=== PATIENT | female | born 1965 | race American Indian/Alaskan Native ===

== ENCOUNTER 2016-09-09 21:57 | Emergency (ER) | payer MEDICARE ==
[2016-09-09 21:58] VITALS: BMI 31.6
[2016-09-09 22:19] VITALS: BP 127/71; PULSE 78; RESP 16; TEMP 99.7; O2SAT 97
--- NOTE | 2016-09-09 23:30 | ED PDOC ---
Arrival/HPI - General Chief Complaint: ENT Problem Time Seen by Provider: 09/09/16 23:27 Historian: Patient - History of Present Illness Narrative History of Present Illness (Text): 09/09/16 23:29 51yr old female presents today with 1 day history of FB in right ear. pt states she was using a qtip yesterday and the tip of the qtip got stuck in the ear canal. pt denies pain. no fever/chills. denies hearing changes. no other complaints. Time/Duration: Other (yesterday) Symptom Onset: Sudden Symptom Course: Unchanged Quality: Other (NO PAIN) Past Medical History - Provider Review Nursing Documentation Reviewed: Yes - Travel History Have you recently traveled outside [place] w/in the past 3 mons?: No - Infectious Disease Hx of Infectious Diseases: None - Tetanus Immunization Tetanus Immunization: Unknown - Cardiac Hx Cardiac Disorders: Yes Hx Hypertension: Yes - Pulmonary Hx Respiratory Disorders: No - Neurological Hx Neurological Disorder: No - HEENT Hx HEENT Disorder: No - Renal Hx Renal Disorder: No - Endocrine/Metabolic Hx Endocrine Disorders: Yes Hx Diabetes Mellitus Type 2: Yes - Hematological/Oncological Hx Blood Disorders: Yes Hx Cancer: Yes (Breast) - Integumentary Hx Dermatological Disorder: No - Musculoskeletal/Rheumatological Hx Musculoskeletal Disorders: No Hx Falls: No - Gastrointestinal Hx Gastrointestinal Disorders: Yes Other/Comment: Claims to have"Eating Disorder" where she eats frequently to excess. History of Ventral Hernia - Genitourinary/Gynecological Hx Genitourinary Disorders: Yes Hx Sexually Transmitted Diseases: Yes (Genital Herpes) - Psychiatric Hx Psychophysiologic Disorder: Yes Hx Anxiety: Yes Hx Depression: Yes Hx Post Traumatic Stress Disorder: Yes Hx Substance Use: No - Past Surgical History Past Surgical History: Unable to Obtain - Surgical History Hx Breast Biopsy: Yes (right breast lumpectomy) Other/Comment: Hernia removal - Anesthesia Hx Anesthesia: Yes Hx Anesthesia Reactions: No - Suicidal Assessment Feels Threatened In Home Enviroment: No Family/Social History - Physician Review Nursing Documentation Reviewed: Yes Family/Social History: Unknown Family HX Smoking Status: Never Smoked Hx Alcohol Use: No Hx Substance Use: No Hx Substance Use Treatment: No Allergies/Home Meds Allergies/Adverse Reactions: Allergies benztropine mesylate [From Cogentin] Allergy (Verified 05/18/16 18:12) RASH fluoxetine HCl [From Prozac] Allergy (Verified 05/18/16 18:12) RASH Home Medications: Home Meds Medication Instructions Recorded Confirmed Alprazolam [Xanax] 0.5 mg PO DAILY PRN 07/25/14 04/21/16 Aripiprazole [Abilify] 30 mg PO DAILY 07/25/14 04/21/16 Ascorbic Acid [Vitamin C] 1 tab PO DAILY 07/25/14 04/21/16 Buspirone HCl 15 mg PO BID 07/25/14 04/21/16 Cyanocobalamin [Vitamin B12 100 1 tab PO DAILY 07/25/14 04/21/16 mcg Tab] Diazepam 5 mg PO BID 07/25/14 04/21/16 Ferrous Sulfate 1 tab PO DAILY 07/25/14 04/21/16 Haloperidol [Haldol] 5 mg PO HS 07/25/14 04/21/16 Ibuprofen 800 mg PO BID PRN 07/25/14 04/21/16 Magnesium Oxide 250 mg PO BID 07/25/14 04/21/16 Metformin ER [Glucophage XR] 500 mg PO DAILY 07/25/14 04/21/16 Modafinil 200 mg PO DAILY@0900,1400 07/25/14 04/21/16 [place]-3 Fatty Acids/Fish Oil [Fish 2 cap PO DAILY 07/25/14 04/21/16 Oil 1,000 mg Capsule] PARoxetine CR [Paxil CR] 37.5 mg PO HS 07/25/14 04/21/16 Ramipril 2.5 mg PO DAILY 07/25/14 04/21/16 Simvastatin 10 mg PO DAILY 07/25/14 04/21/16 Tamoxifen Citrate [Nolvadex] 20 mg PO DAILY 07/25/14 04/21/16 Review of Systems - Review of Systems Constitutional: absent: Fatigue, Fevers ENT: Other (FB in right ear). absent: Hearing Changes Respiratory: absent: SOB, Cough Cardiovascular: absent: Chest Pain, Palpitations Gastrointestinal: absent: Abdominal Pain, Nausea, Vomiting Genitourinary Female: absent: Dysuria, Frequency, Hematuria Musculoskeletal: absent: Arthralgias, Back Pain, Neck Pain Skin: absent: Rash, Pruritis Neurological: absent: Headache, Dizziness Psychiatric: absent: Anxiety, Depression Physical Exam Vital Signs Reviewed: Yes Vital Signs Temp Pulse Resp BP Pulse Ox 09/09/16 22:18 99.7 F H 78 16 127/71 97 Temperature: Afebrile Blood Pressure: Normal Pulse: Regular Respiratory Rate: Normal Appearance: Positive for: Well-Appearing, Non-Toxic, Comfortable Pain Distress: None Mental Status: Positive for: Alert and Oriented X 3 - Systems Exam Head: Present: Atraumatic Ears: Present: Other (Right TM; + cotton noted in canal; no mastoid tenderness or erythema). No: Erythema, TM Bulging, TM Perf Mouth: Present: Moist Mucous Membranes Pharnyx: Present: Normal Neck: Present: Normal Range of Motion Respiratory/Chest: Present: Clear to Auscultation, Good Air Exchange. No: Respiratory Distress, Accessory Muscle Use Cardiovascular: Present: Regular Rate and Rhythm, Normal S1, S2. No: Murmurs Neurological: Present: GCS=15 Skin: Present: Warm, Dry, Normal Color. No: Rashes Psychiatric: Present: Alert, Oriented x 3 Medical Decision Making ED Course and Treatment: 09/09/16 23:32 51yr old female with FB in right ear canal. procedure note; RIGHT EAR Using alligator forceps, cotton removed from right ear; no complications; TM wnl ; no erythema; pt tolerated procedure well. no complications. Patient verbalizes understanding of discharge instructions and need for immediate followup. impression; FB in ear canal f/u with pmd f/u with ENT return if symptoms worsen,persist or if new symptoms develop. Disposition/Present on Arrival - Present on Arrival Any Indicators Present on Arrival: No History of DVT/PE: No History of Uncontrolled Diabetes: No Urinary Catheter: No History of Decub. Ulcer: No History Surgical Site Infection Following: None - Disposition Have Diagnosis and Disposition been Completed?: Yes Diagnosis: Foreign body in ear Disposition: HOME/ ROUTINE Disposition Time: 23:28 Patient Plan: Discharge Condition: GOOD Additional Instructions: Follow up with the primary care physician within the next 2 days Return if symptoms worsen,persist or if new symptoms develop. Referrals: Any Damon DO [Primary Care Provider] - Follow up with primary [place] Russo DO [Staff Provider] - Follow up with primary
== END 2016-09-10 00:14 | disposition home or self-care (01) ==
LOC: ED 21:57
DX: T16.1XXA Foreign body in right ear, initial encounter (principal); X58.XXXA Exposure to other specified factors, initial encounter; I10 Essential (primary) hypertension; E11.9 Type 2 diabetes mellitus without complications

== ENCOUNTER 2016-09-11 14:02 | Emergency (ER) | payer MEDICARE ==
[2016-09-11 14:03] VITALS: BMI 31.6
--- NOTE | 2016-09-11 14:12 | ED PDOC ---
Arrival/HPI - General Time Seen by Provider: 09/11/16 14:11 - History of Present Illness Narrative History of Present Illness (Text): 51 y/o F c PMHx anticipatory anxiety, hernia, anemia s/p repair p/w abdominal pain, vomiting, and diarrhea since this morning. She states that she could see a tense, large, bulge in her abdominal wall with these symptoms. She denies fever, chest pain, dyspnea, dysuria, bloody or black stool. Past Medical History - Infectious Disease Hx of Infectious Diseases: None - Tetanus Immunization Tetanus Immunization: Unknown - Cardiac Hx Cardiac Disorders: Yes Hx Hypertension: Yes - Pulmonary Hx Respiratory Disorders: No - Neurological Hx Neurological Disorder: No - HEENT Hx HEENT Disorder: No - Renal Hx Renal Disorder: No - Endocrine/Metabolic Hx Endocrine Disorders: Yes Hx Diabetes Mellitus Type 2: Yes - Hematological/Oncological Hx Blood Disorders: Yes Hx Cancer: Yes (Breast) - Integumentary Hx Dermatological Disorder: No - Musculoskeletal/Rheumatological Hx Musculoskeletal Disorders: No Hx Falls: No - Gastrointestinal Hx Gastrointestinal Disorders: Yes Other/Comment: Claims to have"Eating Disorder" where she eats frequently to excess. History of Ventral Hernia - Genitourinary/Gynecological Hx Genitourinary Disorders: Yes Hx Sexually Transmitted Diseases: Yes (Genital Herpes) - Psychiatric Hx Psychophysiologic Disorder: Yes Hx Anxiety: Yes Hx Depression: Yes Hx Post Traumatic Stress Disorder: Yes Hx Substance Use: No - Past Surgical History Past Surgical History: Unable to Obtain - Surgical History Hx Breast Biopsy: Yes (right breast lumpectomy) Other/Comment: Hernia removal - Anesthesia Hx Anesthesia: Yes Hx Anesthesia Reactions: No - Suicidal Assessment Feels Threatened In Home Enviroment: No Family/Social History Family/Social History: No Known Family HX Smoking Status: Never Smoked Hx Alcohol Use: No Hx Substance Use: No Hx Substance Use Treatment: No Allergies/Home Meds Allergies/Adverse Reactions: Allergies benztropine mesylate [From Cogentin] Allergy (Verified 05/18/16 18:12) RASH fluoxetine HCl [From Prozac] Allergy (Verified 05/18/16 18:12) RASH Home Medications: Home Meds Medication Instructions Recorded Confirmed Alprazolam [Xanax] 0.5 mg PO DAILY PRN 07/25/14 04/21/16 Aripiprazole [Abilify] 30 mg PO DAILY 07/25/14 04/21/16 Ascorbic Acid [Vitamin C] 1 tab PO DAILY 07/25/14 04/21/16 Buspirone HCl 15 mg PO BID 07/25/14 04/21/16 Cyanocobalamin [Vitamin B12 100 1 tab PO DAILY 07/25/14 04/21/16 mcg Tab] Diazepam 5 mg PO BID 07/25/14 04/21/16 Ferrous Sulfate 1 tab PO DAILY 07/25/14 04/21/16 Haloperidol [Haldol] 5 mg PO HS 07/25/14 04/21/16 Ibuprofen 800 mg PO BID PRN 07/25/14 04/21/16 Magnesium Oxide 250 mg PO BID 07/25/14 04/21/16 Metformin ER [Glucophage XR] 500 mg PO DAILY 07/25/14 04/21/16 Modafinil 200 mg PO DAILY@0900,1400 07/25/14 04/21/16 [place]-3 Fatty Acids/Fish Oil [Fish 2 cap PO DAILY 07/25/14 04/21/16 Oil 1,000 mg Capsule] PARoxetine CR [Paxil CR] 37.5 mg PO HS 07/25/14 04/21/16 Ramipril 2.5 mg PO DAILY 07/25/14 04/21/16 Simvastatin 10 mg PO DAILY 07/25/14 04/21/16 Tamoxifen Citrate [Nolvadex] 20 mg PO DAILY 07/25/14 04/21/16 Review of Systems - Physician Review All systems were reviewed & negative as marked: Yes - Review of Systems Constitutional: absent: Fevers Respiratory: absent: SOB Physical Exam - Physical Exam Narrative Physical Exam (Text): Constitutional: Somewhat drowsy. Head: Normocephalic. Atraumatic. Eyes: PERRL. ENT: Moist mucous membranes. Neck: Supple. Cardiovascular: Regular rate. Chest: No tenderness. Respiratory: Clear to auscultation bilaterally. GI: Soft. Nontender. Nondistended. No rebound or guarding. Back: No CVA tenderness. Musculoskeletal: No tenderness or swelling of extremities. Skin: No rash. Neurologic: Alert, no focal deficit. Vital Signs Temp Pulse Resp BP Pulse Ox 09/11/16 15:31 68 18 145/89 100 09/11/16 14:03 97.8 F 70 16 146/97 H 100 Medical Decision Making ED Course and Treatment: Patient treated with IVF, Pepcid, Zofran. At reassessment, the patient is well appearing, awake, alert, and states she feels completely better, has had no vomiting, and her abdomen is now back to normal size without any tenseness. I explained that her lipase is elevated and the concern for pancreatitis. The patient was offered admission, but she wished to go home. She stated that she will return to the ER for any worsening pain or vomiting but otherwise will follow up with her PMD for repeat lipase testing as well as for her Vitamin B12 for her anemia. - Lab Interpretations Lab Results: 09/11/16 14:15 09/11/16 14:15 Lab Results 09/11/16 14:15: Sodium 135, Potassium 3.5 L, Chloride 102, Carbon Dioxide 23, Anion Gap 14, BUN 11, Creatinine 0.6, Est GFR ( Amer) > 60, Est GFR (Non- Af Amer) > 60, Random Glucose 152 H, Calcium 9.0, Total Bilirubin 0.6, AST 62 H , ALT 45, Alkaline Phosphatase 53, Total Protein 8.3, Albumin 4.3, Globulin 4.0 , Albumin/Globulin Ratio 1.1, Lipase 773 H 09/11/16 14:15: Urine Color Yellow, Urine Appearance Clear, Urine pH 6.0, Ur Specific [place] 1.025, Urine Protein Negative, Urine Glucose (UA) Negative, Urine Ketones 15 H, Urine Blood Negative, Urine Nitrate Negative, Urine Bilirubin Negative, Urine Urobilinogen 0.2, Ur Leukocyte Esterase Negative, Urine HCG, Qual Negative 09/11/16 14:15: WBC 6.9, RBC 3.59, Hgb 8.5 L, Hct 28.5 L, MCV 79.4 L, MCH 23.7 L , MCHC 29.8 L, RDW 16.4 H, Plt Count 365, MPV 9.1, Gran % 88.3 H, Lymph % (Auto ) 7.9 L, [place] % (Auto) 3.6, Eos % (Auto) 0.1 L, Baso % (Auto) 0.1, Gran # 6.06, Lymph # 0.5 L, [place] # 0.3, Eos # 0.0, Baso # 0.01 - Medication Orders Current Medication Orders: Discontinued Medications Famotidine (Pepcid) 20 mg IVP STAT STA Stop: 09/11/16 15:14 Last Admin: 09/11/16 15:23 Dose: 20 mg Sodium Chloride (Sodium Chloride 0.9%) 1,000 mls @ 999 mls/hr IV .Q1H1M STA Stop: 09/11/16 16:12 Last Admin: 09/11/16 15:22 Dose: 999 mls/hr Ondansetron HCl (Zofran Inj) 8 mg IVP STAT STA Stop: 09/11/16 15:13 Last Admin: 09/11/16 15:23 Dose: 8 mg Disposition/Present on Arrival - Present on Arrival Any Indicators Present on Arrival: No History of DVT/PE: No History of Uncontrolled Diabetes: No Urinary Catheter: No History Surgical Site Infection Following: None - Disposition Have Diagnosis and Disposition been Completed?: Yes Diagnosis: Abdominal pain Disposition: HOME/ ROUTINE Disposition Time: 16:25 Patient Plan: Discharge Condition: STABLE Discharge Instructions (ExitCare): Abdominal Pain (ED) Prescriptions: Famotidine [Pepcid] 1 tab PO BID #60 tab Referrals: Any Damon DO [Primary Care Provider] - Follow up with primary
[2016-09-11 14:43] VITALS: TEMP 97.8; O2SAT 100
[2016-09-11] MEDS ORDERED: Sodium Chloride 0.9% 1,000 ML IV STA (15:12)
[2016-09-11 15:15] LABS: ADD MANUAL DIFF? NO
[2016-09-11 15:31] VITALS: RESP 18
[2016-09-11 15:33] LABS: ALB/GLOB RATIO 1.1 (1.1-1.8); ALKALINE PHOSPHATASE 53 U/L (38-133); ALT/SGPT 45 U/L (7-56); AST/SGOT 62 U/L (15-39); BASO # 0.01 K/mm3 (0.0-2.0); BASO % 0.1 % (0.0-3.0); BILIRUBIN,TOTAL 0.6 mg/dL (0.2-1.3); BLOOD UREA NITROGEN 11 mg/dL (7-21); CARBON DIOXIDE 23 mmol/L (21-33); CHLORIDE 102 mmol/L (98-107); EOS % 0.1 % (1.5-5.0); GFR AFRICAN-AMERICAN > 60; GLUCOSE,RANDOM 152 mg/dL (70-110); GRAN # 6.06 (1.4-6.5); GRAN % 88.3 % (50.0-68.0); HEMATOCRIT 28.5 % (36.0-48.0); LIPASE 773 U/L (23-300); LYMPH # 0.5 (1.2-3.4); LYMPH % 7.9 % (22.0-35.0); MEAN CELL VOLUME 79.4 fL (80.0-105.0); MEAN CORPUSCULAR HEMOGLOBIN 23.7 pg (25.0-35.0); MEAN CORPUSCULAR HGB CONC 29.8 g/dl (31.0-37.0); MEAN PLATELET VOLUME 9.1 fl (7.0-11.0); MONO # 0.3 (0.1-0.6); MONO % 3.6 % (1.0-6.0); PLATELET COUNT 365 10^3/uL (120.0-450.0); POTASSIUM 3.5 mmol/L (3.6-5.0); RED CELL DISTRIBUTION WIDTH 16.4 % (11.5-14.5); SODIUM 135 mmol/L (132-148); TOTAL PROTEIN 8.3 g/dL (5.8-8.3); URINE BILIRUBIN NEGATIVE (NEGATIVE); URINE BLOOD NEGATIVE (NEGATIVE); URINE GLUCOSE (UA) NEGATIVE (NEGATIVE); URINE KETONE 15 mg/dL (NEGATIVE); URINE LEUKOCYTE ESTERASE NEGATIVE Leu/uL (NEGATIVE); URINE PROTEIN NEGATIVE mg/dL (<30 mg/dL); URINE UROBILINOGEN 0.2 E.U./dL (<1 E.U./dL); WHITE BLOOD COUNT 6.9 10^3/ul (4.5-11.0)
[2016-09-11 15:36] LABS: URINE APPEARANCE CLEAR (CLEAR); URINE COLOR YELLOW (YELLOW)
[2016-09-11 16:49] VITALS: BP 143/79; PULSE 66
== END 2016-09-11 17:20 | disposition home or self-care (01) ==
LOC: ED 14:02
DX: R10.9 Unspecified abdominal pain (principal); E11.9 Type 2 diabetes mellitus without complications; I10 Essential (primary) hypertension
CPT/HCPCS: 80053; 81003; 83690; 84703; 85025; 96361; 96374; 96375; 99284; J2405; J7040

== ENCOUNTER 2016-11-17 10:49 | Emergency (ER) | payer MEDICARE ==
[2016-11-17 11:03] VITALS: RESP 18; TEMP 98; O2SAT 98; BMI 32.9
[2016-11-17] MEDS ORDERED: Sodium Chloride 0.9% 1,000 ML IV STA (11:30)
[2016-11-17] MEDS ORDERED: Lidocaine 2% Viscous 100 ml PO STA (11:32)
[2016-11-17] MEDS ORDERED: Alum-Mag Hydrox-Simethicone Susp (30 mL) PO STA (11:32)
[2016-11-17 12:34] LABS: BASO # 0.01 K/mm3 (0.0-2.0); BASO % 0.2 % (0.0-3.0); EOS % 0.5 % (1.5-5.0); GRAN # 3.45 (1.4-6.5); GRAN % 78.1 % (50.0-68.0); HEMOGLOBIN 8.5 gm/dL (12.0-16.0); LYMPH # 0.7 (1.2-3.4); LYMPH % 14.9 % (22.0-35.0); MEAN CORPUSCULAR HEMOGLOBIN 22.6 pg (25.0-35.0); MEAN CORPUSCULAR HGB CONC 28.6 g/dl (31.0-37.0); MEAN PLATELET VOLUME 8.4 fl (7.0-11.0); MONO # 0.3 (0.1-0.6); MONO % 6.3 % (1.0-6.0); PLATELET COUNT 264 10^3/uL (120.0-450.0); RBC 3.76 10^6/uL (3.5-6.1); RED CELL DISTRIBUTION WIDTH 20.2 % (11.5-14.5); WHITE BLOOD COUNT 4.4 10^3/ul (4.5-11.0)
[2016-11-17 12:36] LABS: ALB/GLOB RATIO 1.1 (1.1-1.8); ALBUMIN 4.1 g/dL (3.0-4.8); ALT/SGPT 24 U/L (7-56); AST/SGOT 42 U/L (15-39); BLOOD UREA NITROGEN 13 mg/dL (7-21); CALCIUM 9.3 mg/dL (8.4-10.5); GFR AFRICAN-AMERICAN > 60; GFR NON-AFRICAN AMERICAN > 60; LIPASE 200 U/L (23-300)
[2016-11-17 13:31] LABS: PH,URINE 6.5 (4.7-8.0); URINE APPEARANCE CLEAR (CLEAR); URINE BILIRUBIN NEGATIVE (NEGATIVE); URINE BLOOD NEGATIVE (NEGATIVE); URINE COLOR YELLOW (YELLOW); URINE GLUCOSE (UA) NEGATIVE (NEGATIVE); URINE LEUKOCYTE ESTERASE NEGATIVE Leu/uL (NEGATIVE); URINE NITRATE NEGATIVE (NEGATIVE); URINE PROTEIN NEGATIVE mg/dL (<30 mg/dL); URINE UROBILINOGEN 0.2 E.U./dL (<1 E.U./dL)
[2016-11-17 13:50] VITALS: BP 135/68; PULSE 75
--- NOTE | 2016-11-17 14:00 | ED PDOC ---
Arrival/HPI - General Chief Complaint: Abdominal Pain Time Seen by Provider: 11/17/16 10:53 Historian: Patient - History of Present Illness Narrative History of Present Illness (Text): 11/17/16 14:02 51 yo F w/ pmh of gastritis, eating disorder, DM, depression, large fibroid uterus, and abdominal hernia, s/p previous hernia repair in the epigastric area , presents with mid abdominal pain and 2 episodes of vomiting after eating an entire apple pie. States that she has a h/o an eating disorder, states when she becomes overly stressed out, she ends up binge eating and it causes her gastritis to act up, normally takes pepcid with improvement, however took a dose superintendent pressure with no improvement, prompting ED visit. Denies any radiation, chest pain, SOB, back pain, diarrhea, urinary symptoms, constipation. Pt has no other complaints. Of note, pt adds that she is currently following up with a GI doctor , who plans to schedule her for an outpt endoscopy and colonoscopy. PMD Nelson Past Medical History - Provider Review Nursing Documentation Reviewed: Yes - Infectious Disease Hx of Infectious Diseases: None - Tetanus Immunization Tetanus Immunization: Unknown - Cardiac Hx Cardiac Disorders: Yes Hx Hypertension: Yes - Pulmonary Hx Respiratory Disorders: No - Neurological Hx Neurological Disorder: No - HEENT Hx HEENT Disorder: No - Renal Hx Renal Disorder: No - Endocrine/Metabolic Hx Endocrine Disorders: Yes Hx Diabetes Mellitus Type 2: Yes - Hematological/Oncological Hx Blood Disorders: Yes Hx Cancer: Yes (Breast R) - Integumentary Hx Dermatological Disorder: No - Musculoskeletal/Rheumatological Hx Musculoskeletal Disorders: No Hx Falls: No - Gastrointestinal Hx Gastrointestinal Disorders: Yes Other/Comment: Claims to have"Eating Disorder" where she eats frequently to excess. History of Ventral Hernia - Genitourinary/Gynecological Hx Genitourinary Disorders: Yes Hx Sexually Transmitted Diseases: Yes (Genital Herpes) - Psychiatric Hx Psychophysiologic Disorder: Yes Hx Anxiety: Yes Hx Depression: Yes Hx Post Traumatic Stress Disorder: Yes Hx Substance Use: No - Past Surgical History Past Surgical History: Unable to Obtain - Surgical History Hx Breast Biopsy: Yes (right breast lumpectomy) - Anesthesia Hx Anesthesia: Yes Hx Anesthesia Reactions: No - Suicidal Assessment Feels Threatened In Home Enviroment: No Family/Social History - Physician Review Nursing Documentation Reviewed: Yes Family/Social History: No Known Family HX Smoking Status: Never Smoked Hx Alcohol Use: No Hx Substance Use: No Hx Substance Use Treatment: No Allergies/Home Meds Allergies/Adverse Reactions: Allergies benztropine mesylate [From Cogentin] Allergy (Verified 11/17/16 10:57) RASH fluoxetine HCl [From Prozac] Allergy (Verified 11/17/16 10:57) RASH omeprazole Allergy (Verified 11/17/16 10:57) RASH Home Medications: Home Meds Medication Instructions Recorded Confirmed Alprazolam [Xanax] 0.5 mg PO DAILY PRN 07/25/14 11/17/16 Aripiprazole [Abilify] 30 mg PO DAILY 07/25/14 11/17/16 Ascorbic Acid [Vitamin C] 1 tab PO DAILY 07/25/14 11/17/16 Buspirone HCl 15 mg PO BID 07/25/14 11/17/16 Cyanocobalamin [Vitamin B12 100 1 tab PO DAILY 07/25/14 11/17/16 mcg Tab] Diazepam 5 mg PO BID 07/25/14 11/17/16 Ferrous Sulfate 1 tab PO DAILY 07/25/14 11/17/16 Haloperidol [Haldol] 5 mg PO HS 07/25/14 11/17/16 Ibuprofen 800 mg PO BID PRN 07/25/14 11/17/16 Magnesium Oxide 250 mg PO BID 07/25/14 11/17/16 Metformin ER [Glucophage XR] 500 mg PO DAILY 07/25/14 11/17/16 Modafinil 200 mg PO DAILY@0900,1400 07/25/14 11/17/16 [place]-3 Fatty Acids/Fish Oil [Fish 2 cap PO DAILY 07/25/14 11/17/16 Oil 1,000 mg Capsule] PARoxetine CR [Paxil CR] 37.5 mg PO HS 07/25/14 11/17/16 Ramipril 2.5 mg PO DAILY 07/25/14 11/17/16 Simvastatin 10 mg PO DAILY 07/25/14 11/17/16 Tamoxifen Citrate [Nolvadex] 20 mg PO DAILY 07/25/14 11/17/16 Review of Systems - Review of Systems Constitutional: Normal. absent: Fatigue, Weight Change, Fevers Respiratory: Normal. absent: SOB, Cough, Sputum Cardiovascular: Normal. absent: Chest Pain, Palpitations, Edema Gastrointestinal: Normal, Abdominal Pain, Other (h/o eating disorder). absent: Stool Changes, Hematochezia Musculoskeletal: Normal. absent: Arthralgias, Back Pain, Neck Pain Skin: Normal. absent: Rash, Pruritis, Skin Lesions Psychiatric: Normal, Depression (h/o depression). absent: Anxiety, Suicidal Ideation Physical Exam Vital Signs Reviewed: Yes Vital Signs Temp Pulse Resp BP Pulse Ox 11/17/16 13:50 75 18 135/68 98 11/17/16 12:15 78 18 138/71 98 11/17/16 11:02 98.0 F 75 18 141/75 98 Temperature: Afebrile Blood Pressure: Normal Pulse: Regular Respiratory Rate: Normal Appearance: Positive for: Well-Appearing, Non-Toxic, Comfortable Pain Distress: None Mental Status: Positive for: Alert and Oriented X 3 - Systems Exam Head: Present: Atraumatic, Normocephalic Pupils: Present: PERRL Extroacular Muscles: Present: EOMI Conjunctiva: Present: Normal. No: Injected, Icteric Mouth: Present: Moist Mucous Membranes Neck: Present: Normal Range of Motion. No: MIDLINE TENDERNESS Respiratory/Chest: Present: Clear to Auscultation, Good Air Exchange. No: Respiratory Distress, Rales, Rhonchi Cardiovascular: Present: Regular Rate and Rhythm, Normal S1, S2. No: Murmurs Abdomen: Present: Normal Bowel Sounds, Hernias (+nonreducible umbilical hernia, not tender to palpation), Mass/Organomegaly ((+) palpable fibroid uterus in the lower abdomen), Scars (vertical scar above the umbilicus from previous hernia repair). No: Tenderness, Distention, Peritoneal Signs, Rebound, Guarding Back: Present: Normal Inspection. No: CVA Tenderness, Midline Tenderness Upper Extremity: Present: Normal Inspection, Normal ROM. No: Edema Lower Extremity: Present: Normal Inspection, Normal ROM. No: Edema, Tenderness Neurological: Present: GCS=15, CN II-XII Intact, Speech Normal Skin: Present: Warm, Dry, Normal Color. No: Rashes Psychiatric: Present: Alert, Oriented x 3, Normal Insight, Normal Concentration Medical Decision Making ED Course and Treatment: 11/17/16 13:54 51 yo F w/ pmh of gastritis, eating disorder, DM, depression and abdominal hernia, presents with mid abdominal pain and 2 episodes of vomiting after eating an entire apple pie. Differential diagnosis : likely dyspepsia, r/o pancreatitis, cholelithiasis. Plan: - Labs - IV fluids - Pepcid / maalox / viscous lidocaine / zofran - Reasses / disposition - UA / urine cx Labs reviewed, pt's hgb is 8.5 / hct 29, pt's last ER visit on 09/11/16, her hgb was 8.5 hct 28.5, otherwise the rest of the labs are wnl. On re-evaluation, pt states that she feels much better, reports no abdominal pain or nausea at this time. On exam, pt is smiling, laying in bed comfortably in no acute distress. Abdomen is soft with no tenderness, no guarding and no rebound, umbilical hernia still present and is not tender to palpation. Pt states that she feels comfortable going home, advised to continue taking her pepcid and to f/u with her pmd and GI doctor in 1-2 days for re-evaluation, also instructed to return to the ER at any time for any new or worsening symptoms. - Lab Interpretations Lab Results: 11/17/16 12:15 11/17/16 12:15 Lab Results 11/17/16 13:00: Urine Color Yellow, Urine Appearance Clear, Urine pH 6.5, Ur Specific [place] 1.020, Urine Protein Negative, Urine Glucose (UA) Negative, Urine Ketones Negative, Urine Blood Negative, Urine Nitrate Negative, Urine Bilirubin Negative, Urine Urobilinogen 0.2, Ur Leukocyte Esterase Negative 11/17/16 12:15: Sodium 141, Potassium 3.6, Chloride 104, Carbon Dioxide 29, Anion Gap 12, BUN 13, Creatinine 0.7, Est GFR ( Amer) > 60, Est GFR (Non- Af Amer) > 60, Random Glucose 91, Calcium 9.3, Total Bilirubin 0.2, AST 42 H, ALT 24, Alkaline Phosphatase 54, Total Protein 7.7, Albumin 4.1, Globulin 3.6, Albumin/Globulin Ratio 1.1, Lipase 200 11/17/16 12:15: WBC 4.4 L D, RBC 3.76, Hgb 8.5 L, Hct 29.7 L, MCV 79.0 L, MCH 22.6 L, MCHC 28.6 L, RDW 20.2 H, Plt Count 264, MPV 8.4, Gran % 78.1 H, Lymph % (Auto) 14.9 L, [place] % (Auto) 6.3 H, Eos % (Auto) 0.5 L, Baso % (Auto) 0.2, Gran # 3.45, Lymph # 0.7 L, [place] # 0.3, Eos # 0.0, Baso # 0.01 - Medication Orders Current Medication Orders: Discontinued Medications Al Hydrox/Mg Hydrox/Simethicone (Maalox Plus 30 Ml) 30 ml PO STAT STA Stop: 11/17/16 11:33 Last Admin: 11/17/16 12:19 Dose: 30 ml Famotidine (Pepcid) 20 mg IVP STAT STA Stop: 11/17/16 11:35 Last Admin: 11/17/16 12:17 Dose: 20 mg Sodium Chloride (Sodium Chloride 0.9%) 1,000 mls @ 1,000 mls/hr IV .Q1H STA Stop: 11/17/16 12:29 Last Admin: 11/17/16 12:18 Dose: 1,000 mls/hr Lidocaine (Lidocaine 2% Viscous) 15 ml PO STAT STA Stop: 11/17/16 11:33 Last Admin: 11/17/16 12:25 Dose: 15 ml Ondansetron HCl (Zofran Inj) 4 mg IVP STAT STA Stop: 11/17/16 11:33 Last Admin: 11/17/16 12:15 Dose: 4 mg - PA / HAZ TECH / Resident Statement / has reviewed & agrees with the documentation as recorded. Disposition/Present on Arrival - Present on Arrival Any Indicators Present on Arrival: No History of DVT/PE: No History of Uncontrolled Diabetes: No Urinary Catheter: No History of Decub. Ulcer: No History Surgical Site Infection Following: None - Disposition Have Diagnosis and Disposition been Completed?: Yes Diagnosis: Abdominal pain, Dyspepsia Disposition: HOME/ ROUTINE Disposition Time: 13:30 Patient Plan: Discharge Patient Problems: Current Active Problems Problem Status Onset Abdominal pain Acute Dyspepsia Acute Condition: IMPROVED Discharge Instructions (ExitCare): Chronic Indigestion (ED) Print Language: KINYARWANDA Additional Instructions: Follow up with referral physician provided in 1-2 days without fail. Continue current medication. Return to the ER at any time for any new or worsening symptoms. Referrals: PCP,NO [Primary Care Provider] - Follow up with primary Nelson,Shy, DO [Staff Provider] - Follow up with primary
== END 2016-11-17 14:15 | disposition home or self-care (01) ==
LOC: ED 10:49
DX: R10.13 Epigastric pain (principal); I10 Essential (primary) hypertension; E11.9 Type 2 diabetes mellitus without complications
CPT/HCPCS: 80053; 81003; 83690; 85025; 87086; 96361; 96374; 96375; 99283; J2405; J7040

== ENCOUNTER 2016-12-24 19:22 | Observation (INO) | payer MEDICARE ==
--- NOTE | 2016-12-24 20:09 | ED PDOC ---
Arrival/HPI - General Historian: Patient - History of Present Illness Symptom Onset: Sudden Symptom Course: Unchanged Activities at Onset: Rest Context: Home <Diana Solares - Last Filed: 12/25/16 03:04> <Patrick Ryan - Last Filed: 12/25/16 06:39> - General Chief Complaint: Medical Clearance Time Seen by Provider: 12/24/16 19:31 - History of Present Illness Narrative History of Present Illness (Text): 12/24/16 20:24 A 51 year old female, with a psychiatric history, presents to the emergency department because of anxiety and depression. Patient reports she woke up this morning feeling anxious and began to feel depressed. She also notes an upset stomach and decided to call some of her friends in mental health field. She then states she saw her psychiatrist who adjusted her medications but pharmacy stated there was something wrong with the way medications were written. Patient reports to the emergency department for depression and anxiety. Denies any abdominal pain, nausea, vomiting, chest pain, fever, shortness of breath, chills , suicidal ideation, homicidal ideation, dysuria, hematuria or any other complaints at this time. Patient is ambulatory with steady gait. (Diana Solares) Past Medical History - Provider Review Nursing Documentation Reviewed: Yes - Infectious Disease Hx of Infectious Diseases: None - Tetanus Immunization Tetanus Immunization: Unknown - Cardiac Hx Cardiac Disorders: Yes Hx Hypertension: Yes - Pulmonary Hx Respiratory Disorders: No - Neurological Hx Neurological Disorder: No - HEENT Hx HEENT Disorder: No - Renal Hx Renal Disorder: No - Endocrine/Metabolic Hx Endocrine Disorders: Yes Hx Diabetes Mellitus Type 2: Yes - Hematological/Oncological Hx Blood Disorders: Yes Hx Cancer: Yes (Breast R) - Integumentary Hx Dermatological Disorder: No - Musculoskeletal/Rheumatological Hx Musculoskeletal Disorders: No Hx Falls: No - Gastrointestinal Hx Gastrointestinal Disorders: Yes Other/Comment: Claims to have"Eating Disorder" where she eats frequently to excess. History of Ventral Hernia - Genitourinary/Gynecological Hx Genitourinary Disorders: Yes Hx Sexually Transmitted Diseases: Yes (Genital Herpes) - Psychiatric Hx Psychophysiologic Disorder: Yes Hx Anxiety: Yes Hx Depression: Yes Hx Post Traumatic Stress Disorder: Yes Hx Substance Use: No - Past Surgical History Past Surgical History: Unable to Obtain - Surgical History Hx Breast Biopsy: Yes (right breast lumpectomy) - Anesthesia Hx Anesthesia: Yes Hx Anesthesia Reactions: No - Suicidal Assessment Feels Threatened In Home Enviroment: No <Diana Solares - Last Filed: 12/25/16 03:04> Family/Social History - Physician Review Nursing Documentation Reviewed: Yes Family/Social History: No Known Family HX Smoking Status: Never Smoked Hx Alcohol Use: No Hx Substance Use: No Hx Substance Use Treatment: No <Diana Solares - Last Filed: 12/25/16 03:04> Allergies/Home Meds <Diana Solares - Last Filed: 12/25/16 03:04> <Patrick Ryan - Last Filed: 12/25/16 06:39> Allergies/Adverse Reactions: Allergies benztropine mesylate [From Cogentin] Allergy (Verified 11/17/16 10:57) RASH fluoxetine HCl [From Prozac] Allergy (Verified 11/17/16 10:57) RASH omeprazole Allergy (Verified 11/17/16 10:57) RASH Home Medications: Home Meds Medication Instructions Recorded Confirmed Alprazolam [Xanax] 0.5 mg PO DAILY PRN 07/25/14 12/24/16 Aripiprazole [Abilify] 30 mg PO DAILY 07/25/14 12/24/16 Ascorbic Acid [Vitamin C] 1 tab PO DAILY 07/25/14 12/24/16 Buspirone HCl 15 mg PO BID 07/25/14 12/24/16 Cyanocobalamin [Vitamin B12 100 1 tab PO DAILY 07/25/14 12/24/16 mcg Tab] Diazepam 5 mg PO BID 07/25/14 12/24/16 Ferrous Sulfate 1 tab PO DAILY 07/25/14 12/24/16 Haloperidol [Haldol] 5 mg PO HS 07/25/14 12/24/16 Ibuprofen 800 mg PO BID PRN 07/25/14 12/24/16 Magnesium Oxide 250 mg PO BID 07/25/14 12/24/16 Metformin ER [Glucophage XR] 500 mg PO DAILY 07/25/14 12/24/16 Modafinil 200 mg PO DAILY@0900,1400 07/25/14 12/24/16 [place]-3 Fatty Acids/Fish Oil [Fish 2 cap PO DAILY 07/25/14 12/24/16 Oil 1,000 mg Capsule] PARoxetine CR [Paxil CR] 37.5 mg PO HS 07/25/14 12/24/16 Ramipril 2.5 mg PO DAILY 07/25/14 12/24/16 Simvastatin 10 mg PO DAILY 07/25/14 12/24/16 Tamoxifen Citrate [Nolvadex] 20 mg PO DAILY 07/25/14 12/24/16 Review of Systems - Physician Review All systems were reviewed & negative as marked: Yes - Review of Systems Constitutional: absent: Fevers, Other (chills) Respiratory: absent: SOB Cardiovascular: absent: Chest Pain Gastrointestinal: absent: Abdominal Pain, Nausea, Vomiting Genitourinary Female: absent: Dysuria, Frequency, Hematuria Psychiatric: Anxiety, Depression. absent: Suicidal Ideation, Other (homicidal ideation) <Diana Solares Last Filed: 12/25/16 03:04> Physical Exam Vital Signs Reviewed: Yes Temperature: Afebrile Blood Pressure: Hypertensive Pulse: Regular Respiratory Rate: Normal Appearance: Positive for: Well-Appearing, Non-Toxic, Comfortable Pain Distress: None Mental Status: Positive for: Alert and Oriented X 3 - Systems Exam Head: Present: Atraumatic, Normocephalic Pupils: Present: PERRL Extroacular Muscles: Present: EOMI Conjunctiva: Present: Normal Mouth: Present: Moist Mucous Membranes Respiratory/Chest: Present: Clear to Auscultation, Good Air Exchange. No: Respiratory Distress, Accessory Muscle Use Cardiovascular: Present: Regular Rate and Rhythm, Normal S1, S2. No: Murmurs Abdomen: Present: Normal Bowel Sounds, Hernias (umbilical hernia, nontender). No: Tenderness, Distention, Peritoneal Signs, Rebound, Guarding, McBurney's Point Tender Back: Present: Normal Inspection. No: CVA Tenderness, Midline Tenderness, Paraspinal Tenderness Upper Extremity: Present: Normal Inspection. No: Cyanosis, Edema Lower Extremity: Present: Normal Inspection. No: Edema Neurological: Present: GCS=15, Speech Normal Skin: Present: Warm, Dry, Normal Color. No: Rashes Psychiatric: Present: Alert, Oriented x 3 <Diana Solares Filed: 12/25/16 03:04> Medical Decision Making - Lab Interpretations I have reviewed the lab results: Yes - EKG Interpretation Interpreted by ED Physician: Yes Type: 12 lead EKG <Diana Solares Filed: 12/25/16 03:04> <Patrick Ryan - Last Filed: 12/25/16 06:39> ED Course and Treatment: 12/24/16 22:52 Patient is nontoxic well-appearing in no distress vital signs are stable. CBC WNL CMP WNL Tylenol WNL Salicylate WNL Alcohol level WNL Urine drug screen wnl UA; wnl cxr: wnl ekg normal sinus rhythm no ST elevations normal intervals pt is medically cleared for PES evaluation Patient was seen and evaluated by PES screener: grant pt cleared psychiatrically for discharge. Patient now complaining of abdominal pain. Minimal abdominal tenderness will do dry CAT scan of the abdomen and pelvis. Impression; abdominal pain, depression, anxiety Follow up with the primary care physician within the next 2 days. Follow up with the GI doctor within the next 2 days increase fluids Followup with [facility] Return immediately if symptoms worsen,persist or if new symptoms develop. 12/25/16 01:44 12/25/2016 02:54 Abd/Pelvis CT FINDINGS: There is perihepatic fluid similar to the prior study The gallbladder, liver, spleen, kidneys and pancreas appear grossly normal on this non-contrast study. Surgical sutures are present in bowel in the right upper quadrant. Again seen is a hernia through the anterior abdominal wall at midline containing multiple dilated fluidfilled small bowel loops. These loops measure up to 4 cm in diameter. The small bowel external to the hernia is normal in caliber. There is stranding in the mesentery adjacent to the hernia and in the hernia. On images 75 through 85 there is slight swirling of the mesentery. Findings supportive of strangulated/incarcerated ventral hernia with resultant closed loop small bowel obstruction, similar to prior although more severe. Stool is present throughout the colon. The uterus is massively enlarged with innumerable calcifications similar to prior. Depending upon the patient's symptomatology, further evaluation with MRI may be helpful to evaluate for the possibility of therapeutic embolization. Small free fluid is present in the pelvis. IMPRESSION: Dilated fluid-filled small bowel loops contained within a ventral hernia w stranding in the mesentery. Findings supportive of incarcerated hernia with closed loop obstruction. Dictated and Authenticated by: Shweta Perez MD (Diana Solares) - Lab Interpretations Lab Results: 12/24/16 20:15 12/24/16 20:15 Lab Results 12/24/16 21:19: Urine Opiates Screen Negative, Urine Methadone Screen Negative, Ur Barbiturates Screen Negative, Ur Phencyclidine Scrn Negative, Ur Amphetamines Screen Negative, U Benzodiazepines Scrn Positive H, U Oth Cocaine Metabols Negative, U Cannabinoids Screen Negative 12/24/16 21:19: Urine Color Yellow, Urine Appearance Clear, Urine pH 7.0, Ur Specific [place] 1.020, Urine Protein Negative, Urine Glucose (UA) Negative, Urine Ketones >=80, Urine Blood Negative, Urine Nitrate Negative, Urine Bilirubin Negative, Urine Urobilinogen 0.2, Ur Leukocyte Esterase Negative 12/24/16 20:15: WBC 6.1 D, RBC 4.20, Hgb 9.9 L, Hct 32.9 L, MCV 78.3 L, MCH 23.6 L, MCHC 30.1 L, RDW 19.0 H, Plt Count 274, MPV 8.7, Gran % 76.4 H, Lymph % (Auto) 15.8 L, [place] % (Auto) 6.4 H, Eos % (Auto) 1.2 L, Baso % (Auto) 0.2, Gran # 4.65, Lymph # 1.0 L, [place] # 0.4, Eos # 0.1, Baso # 0.01 12/24/16 20:15: Alcohol, Quantitative < 10 12/24/16 20:15: Salicylates < 1 L, Acetaminophen < 10.0 L 12/24/16 20:15: Sodium 138, Potassium 4.0, Chloride 104, Carbon Dioxide 26, Anion Gap 12, BUN 7, Creatinine 0.6, Est GFR ( Amer) > 60, Est GFR (Non- Af Amer) > 60, Random Glucose 85, Calcium 8.8, Total Bilirubin 0.2, AST 49 H, ALT 32, Alkaline Phosphatase 52, Total Protein 7.0, Albumin 3.8, Globulin 3.2, Albumin/Globulin Ratio 1.2, Lipase 94 - RAD Interpretation Radiology Orders: 12/24/16 20:06 CHEST PORTABLE [RAD] Stat 12/25/16 01:40 ABD & PELVIS W/O PO OR IV CONT [CT] Stat - Medication Orders Current Medication Orders: Acetaminophen (Tylenol 325mg Tab) 650 mg PO Q4H PRN PRN Reason: Pain, Mild (1-3) Sodium Chloride (Sodium Chloride 0.9%) 1,000 mls @ 100 mls/hr IV .Q10H STA Stop: 12/25/16 13:54 Ondansetron HCl (Zofran Inj) 4 mg IVP Q4H PRN PRN Reason: Nausea/Vomiting Discontinued Medications Sodium Chloride (Sodium Chloride 0.9%) 1,000 mls @ 999 mls/hr IV .Q1H1M STA Stop: 12/24/16 23:59 Last Admin: 12/24/16 23:34 Dose: 999 mls/hr - Scribe Statement The provider has reviewed the documentation as recorded by the Scribe <Diana Solares - Last Filed: 12/25/16 03:04> - PA / [employer] / Resident Statement / has reviewed & agrees with the documentation as recorded. <Patrick Ryan - Last Filed: 12/25/16 06:39> - Scribe Statement Eduardo Garcia Provider Scribe Attestation: All medical record entries made by the Scribe were at my direction and personally dictated by me. I have reviewed the chart and agree that the record accurately reflects my personal performance of the history, physical exam, medical decision making, and the department course for this patient. I have also personally directed, reviewed, and agree with the discharge instructions and disposition. (Diana Solares) Disposition/Present on Arrival - Present on Arrival Any Indicators Present on Arrival: No History of DVT/PE: No History of Uncontrolled Diabetes: No Urinary Catheter: No History of Decub. Ulcer: No History Surgical Site Infection Following: None - Disposition Have Diagnosis and Disposition been Completed?: Yes <Diana Solares - Last Filed: 12/25/16 03:04> - Present on Arrival Any Indicators Present on Arrival: No - Disposition Have Diagnosis and Disposition been Completed?: Yes Disposition Time: 03:00 <Patrick Ryan - Last Filed: 12/25/16 06:39> - Disposition Diagnosis: Anxiety, Depression, Abdominal pain, Small bowel obstruction Disposition: HOSPITALIZED Patient Problems: Current Active Problems Problem Status Onset Abdominal pain Acute Anxiety Acute Depression Acute Small bowel obstruction Acute Condition: FAIR
[2016-12-24 20:25] LABS: BASO # 0.01 K/mm3 (0.0-2.0); BASO % 0.2 % (0.0-3.0); EOS # 0.1 (0.0-0.7); EOS % 1.2 % (1.5-5.0); GRAN # 4.65 (1.4-6.5); GRAN % 76.4 % (50.0-68.0); HEMATOCRIT 32.9 % (36.0-48.0); LYMPH % 15.8 % (22.0-35.0); MEAN CELL VOLUME 78.3 fl (80.0-105.0); MEAN CORPUSCULAR HEMOGLOBIN 23.6 pg (25.0-35.0); MEAN CORPUSCULAR HGB CONC 30.1 g/dl (31.0-37.0); MEAN PLATELET VOLUME 8.7 fl (7.0-11.0); MONO # 0.4 (0.1-0.6); MONO % 6.4 % (1.0-6.0); WHITE BLOOD COUNT 6.1 10^3/ul (4.5-11.0)
[2016-12-24 21:51] LABS: URINE BILIRUBIN NEGATIVE (NEGATIVE); URINE BLOOD NEGATIVE (NEGATIVE); URINE GLUCOSE (UA) NEGATIVE (NEGATIVE); URINE KETONE >=80 mg/dL (NEGATIVE); URINE LEUKOCYTE ESTERASE NEGATIVE Leu/uL (NEGATIVE); URINE PROTEIN NEGATIVE mg/dL (<30 mg/dL); URINE UROBILINOGEN 0.2 E.U./dL (<1 E.U./dL)
[2016-12-24 21:52] LABS: URINE APPEARANCE CLEAR (CLEAR); URINE COLOR YELLOW (YELLOW)
[2016-12-24] MEDS ORDERED: Sodium Chloride 0.9% 1,000 ML IV STA (22:59)
[2016-12-24 23:37] LABS: ALB/GLOB RATIO 1.2 (1.1-1.8); ALKALINE PHOSPHATASE 52 U/L (38-133); ALT/SGPT 32 U/L (7-56); AST/SGOT 49 U/L (15-39); BILIRUBIN,TOTAL 0.2 mg/dL (0.2-1.3); BLOOD UREA NITROGEN 7 mg/dL (7-21); CALCIUM 8.8 mg/dL (8.4-10.5); CARBON DIOXIDE 26 mmol/L (21-33); CHLORIDE 104 mmol/L (98-107); GFR AFRICAN-AMERICAN > 60; GLUCOSE,RANDOM 85 mg/dL (70-110); LIPASE 94 U/L (23-300); SODIUM 138 mmol/L (132-148)
--- NOTE | 2016-12-25 02:54 | CT ---
EXAM: CT Abdomen and Pelvis Without Intravenous Contrast EXAM DATE/TIME: 12/25/2016 1:40 AM CLINICAL HISTORY: 51 years old, female; Pain; Abdominal pain TECHNIQUE: Axial computed tomography images of the abdomen and pelvis without intravenous contrast. All CT scans at this facility use one or more dose reduction techniques, viz.: automated exposure control; ma/kV adjustment per patient size (including targeted exams where dose is matched to indication; i.e. head); or iterative reconstruction technique. Coronal and sagittal reformatted images were created and reviewed. COMPARISON: CT - ABD PELVIS W/O PO OR IV CONT 04/21/2016 4:39:23 AM FINDINGS: There is perihepatic fluid similar to the prior study The gallbladder, liver, spleen, kidneys and pancreas appear grossly normal on this non-contrast study. Surgical sutures are present in bowel in the right upper quadrant. Again seen is a hernia through the anterior abdominal wall at midline containing multiple dilated fluid-filled small bowel loops. These loops measure up to 4 cm in diameter. The small bowel external to the hernia is normal in caliber. There is stranding in the mesentery adjacent to the hernia and in the hernia. On images 75 through 85 there is slight swirling of the mesentery. Findings supportive of strangulated/incarcerated ventral hernia with resultant closed loop small bowel obstruction, similar to prior although more severe. Stool is present throughout the colon. The uterus is massively enlarged with innumerable calcifications similar to prior. Depending upon the patient's symptomatology, further evaluation with MRI may be helpful to evaluate for the possibility of therapeutic embolization. Small free fluid is present in the pelvis. IMPRESSION: Dilated fluid-filled small bowel loops contained within a ventral hernia w stranding in the mesentery. Findings supportive of incarcerated hernia with closed loop obstruction.
[2016-12-25] MEDS ORDERED: Sodium Chloride 0.9% 1,000 ML IV STA (03:55)
--- NOTE | 2016-12-25 04:19 | CP.PCM.CON ---
History of Present Illness - History of Present Illness History of Present Illness: General surgery consult note for Dr. Jeffrey Thomas, PGY-1 Pt S & E at bedside. 51F w/PMH sig for hernia s/p hernia repair, fibroids, breast CA s/p lumpectomy ( 2010), DM, depression, anxiety consulted for CT finding of incarcerated hernia with closed loop obstruction. Pt reports having hernia s/p hernia repair in 2013. Hernia is generally asymptomatic. On day prior to admission, pt admits to fatigue, depression, weakness- went to psychiatrist with resulting medication regimen change. After seeing psychiatrist, pt had 1 episode of nbnb emesis (food stuff only from several hrs prior), nausea, some abdominal discomfort. Usually has daily BMs while on Denies constipation, diarrhea PMH: hernia s/p hernia repair, fibroids, breast CA s/p lumpectomy (2010), DM, depression, anxiety, Right foot paresthesias PSH: Hernia repair (2013) All: Benztropine, mesylate, fluoxetine, omeprazole SH: Denies ETOH, Tobacco or illicit drug use- takes prescription medications Past Patient History - Infectious Disease Hx of Infectious Diseases: None - Tetanus Immunizations Tetanus Immunization: Unknown - Past Medical History & Family History Past Medical History?: Yes - Past Social History Smoking Status: Never Smoked - CARDIAC Hx Cardiac Disorders: Yes Hx Hypertension: Yes - PULMONARY Hx Respiratory Disorders: No - NEUROLOGICAL Hx Neurological Disorder: No - HEENT Hx HEENT Problems: No - RENAL Hx Chronic Kidney Disease: No - ENDOCRINE/METABOLIC Hx Endocrine Disorders: Yes Hx Diabetes Mellitus Type 2: Yes - HEMATOLOGICAL/ONCOLOGICAL Hx Blood Disorders: Yes Hx Cancer: Yes (Breast R) - INTEGUMENTARY Hx Dermatological Problems: No - MUSCULOSKELETAL/RHEUMATOLOGICAL Hx Musculoskeletal Disorders: No Hx Falls: No - GASTROINTESTINAL Hx Gastrointestinal Disorders: Yes Other/Comment: Claims to have"Eating Disorder" where she eats frequently to excess. History of Ventral Hernia - GENITOURINARY/GYNECOLOGICAL Hx Genitourinary Disorders: Yes Hx Sexually Transmitted Disorders: Yes (Genital Herpes) - PSYCHIATRIC Hx Psychophysiologic Disorder: Yes Hx Anxiety: Yes Hx Depression: Yes Hx Post Traumatic Stress Disorder: Yes Hx Substance Use: No - SURGICAL HISTORY Hx Breast Biopsy: Yes (right breast lumpectomy) - ANESTHESIA Hx Anesthesia: Yes Hx Anesthesia Reactions: No Meds Allergies/Adverse Reactions: Allergies Allergy/AdvReac Type Severity Reaction Status Date / Time benztropine mesylate Allergy RASH Verified 11/17/16 10:57 [From Cogentin] fluoxetine HCl [From Prozac] Allergy RASH Verified 11/17/16 10:57 omeprazole Allergy RASH Verified 11/17/16 10:57 - Medications Medications: Current Medications Acetaminophen (Tylenol 325mg Tab) 650 mg PO Q4H PRN PRN Reason: Pain, Mild (1-3) Sodium Chloride (Sodium Chloride 0.9%) 1,000 mls @ 100 mls/hr IV .Q10H STA Stop: 12/25/16 13:54 Ondansetron HCl (Zofran Inj) 4 mg IVP Q4H PRN PRN Reason: Nausea/Vomiting Physical Exam - Constitutional Appears: Non-toxic, No Acute Distress - Head Exam Head Exam: ATRAUMATIC, NORMAL INSPECTION, NORMOCEPHALIC - Eye Exam Eye Exam: EOMI, Normal appearance - ENT Exam ENT Exam: Mucous Membranes Moist, Normal Exam - Neck Exam Neck exam: Positive for: Full Rom, Normal Inspection - Respiratory Exam Respiratory Exam: Clear to Auscultation Bilateral, NORMAL BREATHING PATTERN. absent: Rales, Rhonchi, Wheezes, Respiratory Distress - Cardiovascular Exam Cardiovascular Exam: REGULAR RHYTHM, +S1, +S2 - GI/Abdominal Exam GI & Abdominal Exam: Distended, Hernia (umbilical), Hypoactive Bowel Sounds, Soft, Tenderness (minimally). absent: Firm, Guarding, Rebound, Rigid - Rectal Exam Rectal Exam: Deferred - Extremities Exam Extremities exam: Positive for: normal inspection. Negative for: pedal edema - Back Exam Back exam: NORMAL INSPECTION. absent: CVA tenderness (L), CVA tenderness (R) - Neurological Exam Neurological exam: Alert, CN II-XII Intact, Oriented x3 - Psychiatric Exam Psychiatric exam: Normal Affect, Normal Mood - Skin Skin Exam: Dry, Intact, Normal Color, Warm Results - Vital Signs Recent Vital Signs: Last Vital Signs Temp 99.0 F 12/24/16 23:48 Pulse 80 12/24/16 23:48 Resp 17 12/24/16 23:48 BP 136/90 12/24/16 23:48 Pulse Ox 98 12/24/16 23:48 - Labs Result Diagrams: 12/25/16 09:30 12/25/16 09:30 Assessment & Plan - Assessment and Plan (Free Text) Assessment: 51F w/psych hx, umbilical hernia s/p hernia repair, fibroids, breast CA s/p lumpectomy (2010), DM, depression, anxiety consulted for CT finding of incarcerated hernia with closed loop obstruction, pt currently without symptoms , hernia reducible but recurrent Plan: CT ab w/Dilated fluid-filled small bowel loops contained within a ventral hernia w/stranding in the mesentery. Findings supportive of incarcerated hernia with closed loop obstruction. Serial ab exams Will Consider NGT placement if pt becomes distended pain mgmt IVF Will DW attending Martha, PGY-1 - Date & Time Date: 12/25/16 Time: 03:30
[2016-12-25 07:51] VITALS: RESP 18; BMI 32.3
--- NOTE | 2016-12-25 09:51 | RAD ---
HISTORY: pes eval COMPARISON: Comparison made with chest radiograph 05/07/2016. The study was also read in conjunction with CT scan abdomen and pelvis 12/25/2016 at 0145 hours. FINDINGS: LUNGS: Poor inspiration with low lung volumes, crowded bronchovascular markings and mild bibasilar atelectasis. PLEURA: No significant pleural effusion identified, no pneumothorax apparent. CARDIOVASCULAR: Normal. OSSEOUS STRUCTURES: No significant abnormalities. VISUALIZED UPPER ABDOMEN: Normal. OTHER FINDINGS: None. IMPRESSION: Poor inspiration with low lung volumes, crowded bronchovascular markings and mild bibasilar atelectasis.
[2016-12-25 09:52] LABS: BASO # 0.01 K/mm3 (0.0-2.0); BASO % 0.3 % (0.0-3.0); EOS # 0.1 (0.0-0.7); EOS % 2.9 % (1.5-5.0); GRAN # 2.38 (1.4-6.5); GRAN % 62.1 % (50.0-68.0); HEMATOCRIT 29.3 % (36.0-48.0); LYMPH % 26.6 % (22.0-35.0); MEAN CELL VOLUME 78.8 fl (80.0-105.0); MEAN CORPUSCULAR HEMOGLOBIN 23.7 pg (25.0-35.0); MEAN PLATELET VOLUME 8.4 fl (7.0-11.0); MONO # 0.3 (0.1-0.6); MONO % 8.1 % (1.0-6.0); RED CELL DISTRIBUTION WIDTH 19.2 % (11.5-14.5); WHITE BLOOD COUNT 3.8 10^3/ul (4.5-11.0)
[2016-12-25 10:06] LABS: ALB/GLOB RATIO 1.1 (1.1-1.8); ALKALINE PHOSPHATASE 42 U/L (38-133); ALT/SGPT 30 U/L (7-56); AST/SGOT 37 U/L (15-39); BILIRUBIN,TOTAL 0.2 mg/dL (0.2-1.3); BLOOD UREA NITROGEN 8 mg/dL (7-21); CALCIUM 7.8 mg/dL (8.4-10.5); CARBON DIOXIDE 24 mmol/L (21-33); CHLORIDE 109 mmol/L (98-107); GFR AFRICAN-AMERICAN > 60; GLUCOSE,RANDOM 67 mg/dL (70-110); POTASSIUM 3.4 mmol/L (3.6-5.0); SODIUM 139 mmol/L (132-148); TOTAL PROTEIN 5.9 g/dL (5.8-8.3)
[2016-12-25] MEDS ORDERED: Potassium Chloride 20 mEq/15 ml LIQ UD PO STA (10:13)
[2016-12-25] MEDS: Dextrose 5%/0.45% NS 1,000 ML IV SCH ×2 (10:33→21:45)
[2016-12-25] MEDS: Insulin Reg-LOW-Coverage SC SCH ×3 (11:28→21:43)
[2016-12-25] MEDS ORDERED: PAROXETINE 37.5 MG PO SCH (22:00)
--- NOTE | 2016-12-26 01:34 | CARD ---
APPROVED REPORT EKG Measurement Heart [id number] <Conclusion> Normal sinus rhythm Moderate voltage criteria for LVH, may be normal variant Nonspecific T wave abnormality Abnormal ECG
[2016-12-26] MEDS: Dextrose 5%/0.45% NS 1,000 ML IV SCH (05:50)
[2016-12-26 06:24] VITALS: BP 117/73; TEMP 98.3; O2SAT 97
[2016-12-26 08:22] VITALS: PULSE 59
[2016-12-26] MEDS: Insulin Reg-LOW-Coverage SC SCH ×2 (09:24→12:17)
[2016-12-26] MEDS ORDERED: Omega-3-Acid Ethyl Esters 1 GM Cap PO SCH (10:00)
--- NOTE | 2016-12-26 11:47 | CP.PCM.PN ---
Subjective - Date & Time of Evaluation Date of Evaluation: 12/26/16 Time of Evaluation: 11:43 - Subjective Subjective: Surgery: Dr. Murphy Patient feeling well today. Denies pain, n/v. reports large bowel movement last night. Is requesting to go home. She states she is seeing a POWER CUTTING MACHINE OPERATOR doctor Rafa as outpatient who has a plan for hysterectomy and hernia repair in the near future. Objective - Vital Signs/Intake and Output Vital Signs (last 24 hours): Temp Pulse Resp BP Pulse Ox 98.3 F 59 L 18 117/73 97 12/26/16 08:22 12/26/16 08:22 12/26/16 08:22 12/26/16 10:23 12/26/16 08:22 Intake and Output: 12/26/16 12/26/16 06:59 18:59 Intake Total 1200 Balance 1200 - Medications Medications: Current Medications Acetaminophen (Tylenol 325mg Tab) 650 mg PO Q4H PRN PRN Reason: Pain, Mild (1-3) Alprazolam (Xanax) 0.5 mg PO Q6H PRN PRN Reason: Anxiety Last Admin: 12/25/16 21:49 Dose: 0.5 mg Aripiprazole (Abilify) 30 mg PO DAILY [facility] Last Admin: 12/26/16 09:18 Dose: 30 mg Atorvastatin Calcium (Lipitor) 10 mg PO DIN [facility] Last Admin: 12/25/16 17:54 Dose: 10 mg Buspirone HCl (Buspar) 15 mg PO BID [facility] Last Admin: 12/26/16 09:18 Dose: 15 mg Diazepam (Valium) 5 mg PO BID [facility] Last Admin: 12/26/16 09:19 Dose: 5 mg Famotidine (Pepcid) 20 mg PO BID [facility] Last Admin: 12/26/16 09:19 Dose: 20 mg Dextrose/Sodium Chloride (Dextrose 5%/0.45% Ns 1000 Ml) 1,000 mls @ 100 mls/hr IV .Q10H [facility] Last Admin: 12/26/16 05:50 Dose: 100 mls/hr Insulin Human Regular (Humulin R Low) 0 units SC ACHS [facility] PRN Reason: Protocol Last Admin: 12/26/16 09:24 Dose: Not Given Metformin HCl (Glucophage Xr) 500 mg PO DAILY [facility] Last Admin: 12/26/16 09:24 Dose: Not Given Paroxetine Cr [Paxil Cr] 37.5 Mg (Home Med) 37.5 mg PO HS [facility] Last Admin: 12/25/16 21:59 Dose: Not Given Qmqgh-3-Qdxh Ethyl Esters (Lovaza) 2 gm PO DAILY [facility] Last Admin: 12/26/16 09:18 Dose: 2 gm Ondansetron HCl (Zofran Inj) 4 mg IVP Q4H PRN PRN Reason: Nausea/Vomiting Ramipril (Altace) 2.5 mg PO DAILY [facility] Last Admin: 12/26/16 10:23 Dose: 2.5 mg Tamoxifen Citrate (Nolvadex) 20 mg PO DAILY [facility] Last Admin: 12/26/16 10:23 Dose: 20 mg - Labs Labs: 12/25/16 09:30 12/25/16 09:30 - Constitutional Appears: Non-toxic, No Acute Distress - Head Exam Head Exam: ATRAUMATIC, NORMOCEPHALIC - Eye Exam Eye Exam: Normal appearance - ENT Exam ENT Exam: Mucous Membranes Moist - Respiratory Exam Respiratory Exam: NORMAL BREATHING PATTERN. absent: Respiratory Distress - Cardiovascular Exam Cardiovascular Exam: REGULAR RHYTHM. absent: Tachycardia - GI/Abdominal Exam GI & Abdominal Exam: Soft, Hernia (reducible, large, incisional ). absent: Distended, Tenderness Additional comments: large fibroid uterus measuring 20+ week , - Extremities Exam Extremities Exam: absent: Calf Tenderness - Neurological Exam Neurological Exam: Alert, Awake - Psychiatric Exam Psychiatric exam: Normal Affect - Skin Skin Exam: Dry, Normal Color, Warm Assessment and Plan - Assessment and Plan (Free Text) Assessment: 51 y/o female w/ large incisional/ventral wall hernia which is easily reducible as well at 20+ week measuring uterus 2/2 large fibroids Plan: -patient needs to have fibroid uterus surgically removed before or at the same time of hernia repar -patient already has plans with POWER CUTTING MACHINE OPERATOR surgery regarding this management -should f/u as outpatient with POWER CUTTING MACHINE OPERATOR surgeon -patient not clinically obstructed from hernia -cleared for discharge home w/ outpatient f/u from surgical standpoint -d/w Dr. Jeffrey Zarate PGY3
--- NOTE | 2016-12-27 09:25 | PN ---
DATE: 12/26/2016 Aliya Meza is seen again. She was seen yesterday and today. I reviewed the notes. I personally examined the patient myself. The patient has a mostly reducible ventral hernia that was done at the same time as repair of small bowel. It was done as a primary closure and quickly recurred. There is a massive uterus behind it that need surgical intervention. The [employer] is in process of working this up I believe, but asked for colonoscopy and upper endoscopy. At this time, the patient is completely asymptomatic. Abdomen is soft and nontender. She is eating, passing gas and having flatus and bowel movements. Referred to my office. I will be happy to see her as necessary, but the real treatment would be to have a hysterectomy and probably herniorrhaphy at the same time. Carl Murphy MD
--- NOTE | 2017-01-05 20:17 | DS ---
DATE OF DISCHARGE: 12/26/2016 DISCHARGE DIAGNOSES: 1. Incarcerated ventral hernia. 2. History of breast cancer, right sided. 3. Leukopenia. 4. Anemia. 5. Diabetes mellitus type 2. 6. Hypertension. HOSPITAL COURSE: The patient was admitted with abdominal pain. CAT scan of the abdomen showed incarcerated ventral hernia, it was reducible. She was kept n.p.o. and surgery evaluated; Dr. Murphy from surgery evaluated. Abdominal pain subsided. She was able to tolerate oral liquids. She was advised to follow up with Dr. Murphy for elective hernia repair. She is in stable condition. PHYSICAL EXAMINATION ON DISCHARGE: GENERAL: Comfortable in bed, in no acute distress. VITAL SIGNS: Temperature 98.7, heart rate 90 per minute, blood pressure 130/70, respiratory rate 18 per minute. HEENT: Pallor positive. NECK: Supple. CHEST: Air entry present, equal bilaterally. No added sounds. CARDIOVASCULAR EXAM: S1 and S2 normal. No murmur. No gallop. ABDOMEN: Soft, nontender. No hepatosplenomegaly. Central midline hernia present, reducible. EXTREMITIES: No edema. CENTRAL NERVOUS SYSTEM: Alert and oriented x3. SPINE: Nontender. CONDITION ON DISCHARGE: Stable. DISPOSITION: Discharge home. FOLLOWUP: Followup with Dr. Murphy in 1 week. Follow up with PMD in 1 week. DISCHARGE MEDICATIONS: Continue home medications. Xanax 0.5 mg p.r.n., Abilify 30 mg daily, Lipitor 10 daily, BuSpar 15 mg p.o. b.i.d., Valium 5 mg b.i.d., Pepcid 20 mg daily, Haldol 5 mg at bedtime, metformin 500 mg daily, paroxetine 37.5 mg daily, ramipril 0.25 mg daily, tamoxifen 20 mg daily. DIET: Regular. Time spent in preparing discharge and coordinating care 60 minutes. Magaly Vieira MD
--- NOTE | 2017-01-05 21:57 | HP ---
DATE OF EVALUATION: 12/25/2016 HISTORY OF PRESENT ILLNESS: Ms. Meza is a 51-year-old female with a history of breast cancer, admitted with abdominal pain. She has ventral hernia, complaining of pain around the hernia. CAT scan of the abdomen showed incarcerated bowel loop in the ventral hernia. Denies any nausea, vomiting. No fever, no cough or expectoration. She has diabetes mellitus type 2, controlled on current medications. She also has hypertension, controlled on current medications. She has chronic anemia. PAST MEDICAL HISTORY: Diabetes mellitus type 2, hypertension, right-sided breast cancer status post lumpectomy, anxiety, and depression. PAST SURGICAL HISTORY: Right-sided lumpectomy. FAMILY HISTORY: Noncontributory. No positive history in mother and father. PERSONAL HISTORY: Nonsmoking. No history of alcohol abuse. SOCIAL HISTORY: Lives at home. ALLERGIES: COGENTIN, PROZAC, AND OMEPRAZOLE. HOME MEDICATIONS: Xanax 0.5 mg daily, Abilify 30 mg daily, ascorbic acid 1 mg daily, diazepam 5 mg p.o. b.i.d., ferrous sulfate one tablet daily, ibuprofen 800 mg p.o. b.i.d., metformin 500 mg daily, magnesium 250 mg p.o. b.i.d., Ramipril 2.5 mg daily, simvastatin 10 mg daily, tamoxifen 20 mg daily, Paxil 37.5 mg p.o. daily. REVIEW OF SYSTEMS: As per HPI. Rest of 12-point review of systems reviewed, negative. PHYSICAL EXAMINATION: GENERAL: Comfortable in bed, in no acute distress. VITAL SIGNS: Temperature 98.7, heart rate 80 per minute, respiratory rate 16 per minute, oxygen saturation 98% room air. HEENT: Normal. Pallor positive. CHEST: Air entry present and equal bilateral. No added sound. CARDIOVASCULAR: Within normal limits. ABDOMEN: Soft and nontender. No hepatosplenomegaly. Ventral hernia present, nontender, reducible. EXTREMITIES: No edema. SKIN: Normal color. LABORATORY DATA: White count is 6.1, hemoglobin 9.9, hematocrit 32.9, platelet count 274. Sodium 138, potassium 4, BUN 7, creatinine 0.6, glucose 85. CT abdomen, as per HPI. ASSESSMENT AND PLAN: 1. Ventral hernia with incarcerated bowel loop. 2. History of breast cancer, right-sided lumpectomy. 3. Chronic anemia. 4. Leukopenia. 5. Diabetes mellitus type 2. 6. Hypertension. PLAN: She will be admitted to the hospital. CAT scan of the abdomen reviewed. Surgery consultation with Dr. Murphy requested. She will be n.p.o. IV fluids normal saline at 80 mL an hour. Continue home medications. BuSpar 15 mg p.o. b.i.d., Valium 5 mg p.o. b.i.d., Pepcid 20 mg b.i.d., Abilify 30 mg daily, Xanax 0.5 mg p.o. q.6 hours p.r.n., Tylenol 650 q. 4 hours p.r.n. for pain, insulin coverage, hold metformin, Zofran 4 mg IV q. 6 hours p.r.n., tamoxifen 20 mg daily. We will continue to follow closely. Labs are repeated tomorrow morning. Magaly Vieira MD
== END 2016-12-26 12:49 | disposition home or self-care (01) ==
LOC: ED 19:22 → ERH 12-25 03:12 → 3RSO 12-25 04:57
PROVIDERS: ADMIT Internal Medicine; ATTEND Internal Medicine
DX: K43.9 Ventral hernia without obstruction or gangrene (principal); D25.9 Leiomyoma of uterus, unspecified; F32.9 Major depressive disorder, single episode, unspecified; E11.9 Type 2 diabetes mellitus without complications; I10 Essential (primary) hypertension; Z85.3 Personal history of malignant neoplasm of breast
CPT/HCPCS: 36415; 71010; 74176; 80053; 81003; 82948; 83690; 85025; 90791; 93005; 99284; G0378; G0480; J7040; J7042

== ENCOUNTER 2017-02-26 16:51 | Emergency (ER) | payer MEDICARE ==
[2017-02-26 17:02] VITALS: BMI 30.7
[2017-02-26 17:08] VITALS: BP 149/86; PULSE 93; RESP 18; TEMP 99.3; O2SAT 100
--- NOTE | 2017-02-26 17:17 | ED PDOC ---
Arrival/HPI - General Chief Complaint: Foreign Body Time Seen by Provider: 02/26/17 16:53 Historian: Patient - History of Present Illness Narrative History of Present Illness (Text): 02/26/17 17:14 CC: Q Tip in ear Patient is complaining that she lost a piece of q tip in her ear; states she has been buying those "cheap q tips from the dollar store" and needs to stop buying cheap q tips. States it isn't even bothering her but she just noticed it was lodged in there when the q tip didn't have the cotton on it anymore. She denies any other symptoms; denies fevers/chills, HUSAIN, CP, SOB, abdominal pain, N/ V/D, dysuria/freq/urg, or lower extremity pain/swelling. States she has psych issues but they're under control with her psychiatrist; denies hearing voices/ suicidal/homicidal ideation Past Medical History - Provider Review Nursing Documentation Reviewed: Yes - Travel History Have you recently traveled outside [place] w/in the past 3 mons?: No - Past History Past History: No Previous - Infectious Disease Hx of Infectious Diseases: None - Tetanus Immunization Tetanus Immunization: Unknown - Cardiac Hx Cardiac Disorders: Yes Hx Hypertension: Yes - Pulmonary Hx Respiratory Disorders: No - Neurological Hx Neurological Disorder: No - HEENT Hx HEENT Disorder: No - Renal Hx Renal Disorder: No - Endocrine/Metabolic Hx Endocrine Disorders: Yes Hx Diabetes Mellitus Type 2: Yes - Hematological/Oncological Hx Blood Disorders: Yes Hx Cancer: Yes (Breast R) - Integumentary Hx Dermatological Disorder: No - Musculoskeletal/Rheumatological Hx Musculoskeletal Disorders: No Hx Falls: No - Gastrointestinal Hx Gastrointestinal Disorders: Yes Other/Comment: Claims to have"Eating Disorder" where she eats frequently to excess. History of Ventral Hernia - Genitourinary/Gynecological Hx Genitourinary Disorders: Yes Hx Sexually Transmitted Diseases: Yes (Genital Herpes) - Psychiatric Hx Psychophysiologic Disorder: Yes Hx Anxiety: Yes Hx Depression: Yes Hx Post Traumatic Stress Disorder: Yes Hx Substance Use: No - Past Surgical History Past Surgical History: Unable to Obtain - Surgical History Hx Breast Biopsy: Yes (right breast lumpectomy) - Anesthesia Hx Anesthesia: Yes Hx Anesthesia Reactions: No - Suicidal Assessment Feels Threatened In Home Enviroment: No Family/Social History - Physician Review Nursing Documentation Reviewed: Yes Family/Social History: No Known Family HX Smoking Status: Never Smoked Hx Alcohol Use: No Hx Substance Use: No Hx Substance Use Treatment: No Allergies/Home Meds Allergies/Adverse Reactions: Allergies benztropine mesylate [From Cogentin] Allergy (Verified 02/26/17 17:03) RASH fluoxetine HCl [From Prozac] Allergy (Verified 02/26/17 17:03) RASH omeprazole Allergy (Verified 02/26/17 17:03) RASH Home Medications: Home Meds Medication Instructions Recorded Confirmed Alprazolam [Xanax] 0.5 mg PO DAILY PRN 07/25/14 12/24/16 Aripiprazole [Abilify] 30 mg PO DAILY 07/25/14 12/24/16 Ascorbic Acid [Vitamin C] 1 tab PO DAILY 07/25/14 12/24/16 Buspirone HCl 15 mg PO BID 07/25/14 12/24/16 Cyanocobalamin [Vitamin B12 100 1 tab PO DAILY 07/25/14 12/24/16 mcg Tab] Diazepam 5 mg PO BID 07/25/14 12/24/16 Ferrous Sulfate 1 tab PO DAILY 07/25/14 12/24/16 Haloperidol [Haldol] 5 mg PO HS 07/25/14 12/24/16 Ibuprofen 800 mg PO BID PRN 07/25/14 12/24/16 Magnesium Oxide 250 mg PO BID 07/25/14 12/24/16 Metformin ER [Glucophage XR] 500 mg PO DAILY 07/25/14 12/24/16 Modafinil 200 mg PO DAILY@0900,1400 07/25/14 12/24/16 [place]-3 Fatty Acids/Fish Oil [Fish 2 cap PO DAILY 07/25/14 12/24/16 Oil 1,000 mg Capsule] PARoxetine CR [Paxil CR] 37.5 mg PO HS 07/25/14 12/24/16 Ramipril 2.5 mg PO DAILY 07/25/14 12/24/16 Simvastatin 10 mg PO DAILY 07/25/14 12/24/16 Tamoxifen Citrate [Nolvadex] 20 mg PO DAILY 07/25/14 12/24/16 Review of Systems - Review of Systems Constitutional: absent: Fatigue, Weight Change Eyes: absent: Vision Changes, Photophobia ENT: absent: Hearing Changes, Tinnitus, TMJ Pain Respiratory: absent: SOB, Cough Cardiovascular: absent: Chest Pain, Palpitations Gastrointestinal: absent: Abdominal Pain Genitourinary Female: absent: Dysuria, Frequency, Hematuria Musculoskeletal: absent: Arthralgias Skin: absent: Rash, Pruritis, Skin Lesions Neurological: absent: Headache, Dizziness, Focal Weakness Endocrine: absent: Diaphoresis, Polyuria Hemo/Lymphatic: absent: Adenopathy, Easy Bleeding Psychiatric: absent: Anxiety, Depression Physical Exam Vital Signs Temp Pulse Resp BP Pulse Ox 02/26/17 17:08 99.3 F 93 H 18 149/86 100 Temperature: Afebrile Blood Pressure: Normal Pulse: Regular Respiratory Rate: Normal Appearance: Positive for: Well-Appearing, Non-Toxic, Comfortable Pain Distress: None Mental Status: Positive for: Alert and Oriented X 3 - Systems Exam Head: Present: Atraumatic, Normocephalic Pupils: Present: PERRL Extroacular Muscles: Present: EOMI Conjunctiva: Present: Normal Ears: Present: Other (large cotton ball in right ear; removed with alligator forceps, small amount of wax appreciaetd in both ears, no sign of infection, no pain when pulling on tragus, no pain when putting otoscope inside of ear) Mouth: Present: Moist Mucous Membranes Neck: Present: Normal Range of Motion Respiratory/Chest: Present: Clear to Auscultation, Good Air Exchange. No: Respiratory Distress, Accessory Muscle Use Cardiovascular: Present: Regular Rate and Rhythm, Normal S1, S2. No: Murmurs Abdomen: Present: Normal Bowel Sounds. No: Tenderness, Distention Back: Present: Normal Inspection. No: CVA Tenderness Upper Extremity: Present: Normal Inspection. No: Cyanosis, Edema Lower Extremity: Present: Normal Inspection. No: Edema, CALF TENDERNESS Neurological: Present: GCS=15, CN II-XII Intact, Speech Normal Skin: Present: Warm. No: Dry Psychiatric: Present: Alert, Oriented x 3. No: Normal Mood Medical Decision Making ED Course and Treatment: 02/26/17 17:17 Pt with foreign body in ear; cotton of q tip was removed with alligator forceps patient tolerated procedure well patient advised to not use q tips in the future patient agreed to this treatment plan the patient is stable for d/c as per Dr. Nelson The patient will follow up with ENT for further ear cleanings Disposition/Present on Arrival - Present on Arrival Any Indicators Present on Arrival: Yes History of DVT/PE: No History of Uncontrolled Diabetes: No Urinary Catheter: No History of Decub. Ulcer: No History Surgical Site Infection Following: None - Disposition Have Diagnosis and Disposition been Completed?: Yes Diagnosis: Foreign body in ear Disposition: HOME/ ROUTINE Disposition Time: 17:18 Patient Plan: Discharge Condition: FAIR Discharge Instructions (ExitCare): Ear Foreign Body (ED) Referrals: Servando Huerta DO [[facility]] - Follow up with primary Forms: [employer] (Yi)
== END 2017-02-26 17:30 | disposition home or self-care (01) ==
LOC: ED 16:51
DX: T16.1XXA Foreign body in right ear, initial encounter (principal); X58.XXXA Exposure to other specified factors, initial encounter; E11.9 Type 2 diabetes mellitus without complications; I10 Essential (primary) hypertension

== ENCOUNTER 2017-07-26 18:15 | Observation (INO) | payer MEDICARE, OTHER ==
[2017-07-26 18:31] VITALS: BMI 33.3
[2017-07-26] MEDS ORDERED: Sodium Chloride 0.9% 1,000 ML IV SCH (19:45)
[2017-07-26 20:30] LABS: BASO # 0.01 K/mm3 (0.0-2.0); BASO % 0.1 % (0.0-3.0); EOS % 0.4 % (1.5-5.0); GRAN # 5.66 (1.4-6.5); GRAN % 74.9 % (50.0-68.0); HEMOGLOBIN 10.3 g/dL (12.0-16.0); LYMPH # 1.5 (1.2-3.4); LYMPH % 19.2 % (22.0-35.0); MEAN CELL VOLUME 77.8 fl (80.0-105.0); MEAN CORPUSCULAR HEMOGLOBIN 23.4 pg (25.0-35.0); MEAN PLATELET VOLUME 8.6 fl (7.0-11.0); MONO # 0.4 (0.1-0.6); MONO % 5.4 % (1.0-6.0); RBC 4.41 10^6/uL (3.5-6.1); RED CELL DISTRIBUTION WIDTH 18.7 % (11.5-14.5); WHITE BLOOD COUNT 7.6 10^3/ul (4.5-11.0)
[2017-07-26 20:34] LABS: INR 0.99 (0.93-1.08); PARTIAL THROMBOPLASTIN TIME 23.7 Seconds (25.1-36.5); PROTHROMBIN TIME 11.3 SECONDS (9.4-12.5)
[2017-07-26 20:43] LABS: ALB/GLOB RATIO 1.1 (1.1-1.8); ALBUMIN 4.2 g/dL (3.0-4.8); ALT/SGPT 34 U/L (7-56); AMYLASE 182 U/L (35-125); AST/SGOT 59 U/L (14-36); BLOOD UREA NITROGEN 9 mg/dL (7-21); CALCIUM 9.9 mg/dL (8.4-10.5); GFR AFRICAN-AMERICAN > 60; GFR NON-AFRICAN AMERICAN > 60; LIPASE 133 U/L (23-300)
[2017-07-26 20:54] LABS: TROPONIN I < 0.01 ng/mL
[2017-07-26 21:02] LABS: CK-MB 2.1 ng/mL (0.0-3.6)
--- NOTE | 2017-07-26 21:15 | ED PDOC ---
Arrival/HPI - General Chief Complaint: Abdominal Pain Time Seen by Provider: 07/26/17 19:06 Historian: Patient - History of Present Illness Narrative History of Present Illness (Text): 07/26/17 19:30 Aliya Meza is a 52 year old female, whose past medical history includes ventral hernia, diabetes, hypertension, right-sided breast cancer s/p lumpectomy , anxiety, and depression, who presents to the emergency department complaining of abdominal pain. Patient reports associated nausea and vomiting. Patient denies any fever, chills, chest pain, shortness of breath, diarrhea, urinary symptoms, back pain, neck pain, headache, dizziness, or any other complaints. Time/Duration: < week Symptom Onset: Gradual Symptom Course: Unchanged Activities at Onset: Light Context: Home Past Medical History - Provider Review Nursing Documentation Reviewed: Yes - Past History Past History: No Previous - Infectious Disease Hx of Infectious Diseases: None - Tetanus Immunization Tetanus Immunization: Unknown - Cardiac Hx Cardiac Disorders: Yes Hx Hypertension: Yes - Pulmonary Hx Respiratory Disorders: No - Neurological Hx Neurological Disorder: No - HEENT Hx HEENT Disorder: No - Renal Hx Renal Disorder: No - Endocrine/Metabolic Hx Endocrine Disorders: Yes Hx Diabetes Mellitus Type 2: Yes - Hematological/Oncological Hx Blood Disorders: Yes Hx Cancer: Yes (Breast R) - Integumentary Hx Dermatological Disorder: No - Musculoskeletal/Rheumatological Hx Musculoskeletal Disorders: No Hx Falls: No - Gastrointestinal Hx Gastrointestinal Disorders: Yes Other/Comment: Claims to have"Eating Disorder" where she eats frequently to excess. History of Ventral Hernia - Genitourinary/Gynecological Hx Genitourinary Disorders: Yes Hx Sexually Transmitted Diseases: Yes (Genital Herpes) - Psychiatric Hx Psychophysiologic Disorder: Yes Hx Anxiety: Yes Hx Depression: Yes Hx Post Traumatic Stress Disorder: Yes Hx Substance Use: No - Past Surgical History Past Surgical History: Unable to Obtain - Surgical History Hx Breast Biopsy: Yes (right breast lumpectomy) - Anesthesia Hx Anesthesia: Yes Hx Anesthesia Reactions: No - Suicidal Assessment Feels Threatened In Home Enviroment: No Family/Social History - Physician Review Nursing Documentation Reviewed: Yes Family/Social History: Unknown Family HX Smoking Status: Never Smoked Hx Alcohol Use: No Hx Substance Use: No Hx Substance Use Treatment: No Allergies/Home Meds Allergies/Adverse Reactions: Allergies benztropine mesylate [From Cogentin] Allergy (Verified 07/26/17 19:08) RASH fluoxetine HCl [From Prozac] Allergy (Verified 07/26/17 19:08) RASH omeprazole Allergy (Verified 07/26/17 19:08) RASH Home Medications: Home Meds Medication Instructions Recorded Confirmed Unobtainable 07/27/17 07/27/17 Review of Systems - Physician Review All systems were reviewed & negative as marked: Yes - Review of Systems Constitutional: Normal. absent: Fevers Eyes: Normal ENT: Normal Respiratory: Normal. absent: SOB, Cough Cardiovascular: Normal. absent: Chest Pain Gastrointestinal: Abdominal Pain, Nausea, Vomiting. absent: Diarrhea Genitourinary Female: Normal. absent: Dysuria, Frequency, Hematuria, Urine Output Changes Musculoskeletal: Normal. absent: Back Pain, Neck Pain Skin: Normal. absent: Rash Neurological: Normal. absent: Headache, Dizziness Endocrine: Normal Hemo/Lymphatic: Normal Psychiatric: Normal Physical Exam Vital Signs Reviewed: Yes Vital Signs Temp Pulse Resp BP Pulse Ox 07/27/17 03:41 98.0 F 84 18 147/94 H 98 07/26/17 18:30 98.6 F 82 18 158/92 H 100 Temperature: Afebrile Blood Pressure: Normal Pulse: Regular Respiratory Rate: Normal Appearance: Positive for: Well-Appearing, Non-Toxic, Comfortable Pain Distress: None Mental Status: Positive for: Alert and Oriented X 3 - Systems Exam Head: Present: Atraumatic, Normocephalic Pupils: Present: PERRL Extroacular Muscles: Present: EOMI Conjunctiva: Present: Normal Mouth: Present: Moist Mucous Membranes Neck: Present: Normal Range of Motion Respiratory/Chest: Present: Clear to Auscultation, Good Air Exchange. No: Respiratory Distress, Accessory Muscle Use Cardiovascular: Present: Regular Rate and Rhythm, Normal S1, S2. No: Murmurs Abdomen: Present: Normal Bowel Sounds, Hernias (Ventral hernia). No: Tenderness , Distention, Peritoneal Signs Back: Present: Normal Inspection Upper Extremity: Present: Normal Inspection. No: Cyanosis, Edema Lower Extremity: Present: Normal Inspection. No: Edema Neurological: Present: GCS=15, CN II-XII Intact, Speech Normal Skin: Present: Warm, Dry, Normal Color. No: Rashes Psychiatric: Present: Alert, Oriented x 3, Normal Insight, Normal Concentration Medical Decision Making ED Course and Treatment: 07/26/17 19:30 Impression: 52 year old female complaining of abdominal pain, nausea, and vomiting for the past couple of days. Plan: -- CT Abdomen and Pelvis with IV contrast -- EKG -- Labs, cardiac enzymes, lipase, amylase, blood cultures -- UA -- IV fluids -- Zofran -- Reassess and disposition Prior Visits: Notes and results from previous visits were reviewed. On 12/24/2016, pt presented for anxiety and abdominal pain. Pt was admitted to the hospital for further evaluation. Progress Notes: 07/26/17 23:03 Reviewed EKG, NSR at [address] bpm[address] Non-specific ST/T wave changes. 07/27/17 00:53 CT Abdomen and Pelvis shows: Lower thorax: Patchy nonspecific groundglass density is identified within the lung bases bilaterally. ABDOMEN: Liver: There is a band of hypodensity within the anterior liver, which is likely artifactual. Otherwise, there is no visualized hepatic mass. Gallbladder and bile ducts: No calcified stones. No ductal dilation. Pancreas: Normal contour, without acute peripancreatic stranding. Spleen: No splenomegaly. Adrenals: No mass. Kidneys and ureters: No hydronephrosis. No solid mass. Stomach and bowel: There is a large anterior abdominal hernia containing multiple bowel loops. Some bowel loops are distended measuring up to 4.5 cm in diameter. There is stranding of the herniated fat. These findings are suggestive of a strangulated/incarcerated ventral hernia, with closed loop obstruction. There is new wall thickening of small bowel loops within the left side of the mesentery, suggestive of enteritis. There is a new sac-like area of small bowel loops in the left side the abdomen, and an internal hernia cannot be excluded. Moderate fecal material is identified within the colon. Appendix: The appendix is not visualized. PELVIS: Bladder: No mass. Reproductive: There is marked enlargement of the uterus, with uterine fibroids. Some of these masses are calcified. One of the larger masses is seen on the right side measuring 12.9 x 12.0 x 9.5 cm. ABDOMEN and PELVIS: Intraperitoneal space: There is mild abdominal and pelvic ascites. Bones/joints: Hypertrophic degenerative changes are noted within the spine. Soft tissues: See above. Vasculature: No abdominal aortic aneurysm. Lymph nodes: Scattered small retroperitoneal and intrapelvic lymph nodes are identified, without significant lymphadenopathy. Other findings: There is stranding of the abdominal mesentery, most significant anteriorly and on the left side. IMPRESSION: 1. There is a large anterior abdominal hernia containing multiple bowel loops. Some bowel loops are distended measuring up to 4.5 cm in diameter. There is stranding of the herniated fat. These findings are suggestive of a strangulated/incarcerated ventral hernia, with closed loop obstruction. 2. There is stranding of the abdominal mesentery, most significant anteriorly and on the left side. 3. There is new wall thickening of small bowel loops within the left side of the mesentery, suggestive of enteritis. 4. There is a new sac-like area of small bowel loops in the left side the abdomen, and an internal hernia cannot be excluded. 5. There is mild abdominal and pelvic ascites. 6. There is marked enlargement of the uterus, with uterine fibroids. 7. Additional CT findings described above. 8. Surgical consultation is recommended. 07/27/17 01:03 Case discussed with cardiovascular surgical tech division superintendent, who is aware and agrees to evaluate pt. 07/27/17 01:[address] Quintana, who is aware and agrees with plan. Accepts pt in to her service. Pt will go to [facility] observation for incarcerated hernia. - Lab Interpretations Microbiology Results: Microbiology Results 07/26/17 20:11 Blood-Venous Blood Culture - Preliminary NO GROWTH AFTER 24 HOURS Lab Results: 07/26/17 20:11 07/26/17 20:11 Lab Results 07/26/17 20:11: Sodium 137, Potassium 3.5 L, Chloride 104, Carbon Dioxide 23, Anion Gap 14, BUN 9, Creatinine 0.6 L, Est GFR ( Amer) > 60, Est GFR (Non -Af Amer) > 60, Random Glucose 156 H, Calcium 9.9, Total Bilirubin 0.3, AST 59 H , ALT 34, Alkaline Phosphatase 67, Lactate Dehydrogenase 696, Total Creatine Kinase 239 H, CK-MB (CK-2) 2.1, CK-MB (CK-2) % Cancelled, Troponin I < 0.01, Total Protein 7.9, Albumin 4.2, Globulin 3.7, Albumin/Globulin Ratio 1.1, Amylase 182 H, Lipase 133 07/26/17 20:11: PT 11.3, INR 0.99, APTT 23.7 L 07/26/17 20:11: WBC 7.6 D, RBC 4.41, Hgb 10.3 L, Hct 34.3 L, MCV 77.8 L, MCH 23.4 L, MCHC 30.0 L, RDW 18.7 H, Plt Count 337, MPV 8.6, Gran % 74.9 H, Lymph % (Auto) 19.2 L, Calloway % (Auto) 5.4, Eos % (Auto) 0.4 L, Baso % (Auto) 0.1, Gran # 5.66, Lymph # (Auto) 1.5, C[place]ay # (Auto) 0.4, Eos # (Auto) 0.0, Baso # (Auto) 0.01 I have reviewed the lab results: Yes - RAD Interpretation Radiology Orders: 07/26/17 20:44 ABD & PELVIS IV CONTRAST ONLY [CT] [employer] Specialist: Radiologist - EKG Interpretation Interpreted by ED Physician: Yes Type: 12 lead EKG - Medication Orders Current Medication Orders: Alprazolam (Xanax) 0.25 mg PO BID PRN; Protocol PRN Reason: Anxiety Stop: 08/04/17 10:01 Ondansetron HCl (Zofran Inj) 4 mg IVP Q6H PRN PRN Reason: Nausea/Vomiting Pantoprazole Sodium (Protonix Inj) 40 mg IVP DAILY VIPUL Discontinued Medications Sodium Chloride (Sodium Chloride 0.9%) 1,000 mls @ 80 mls/hr IV .[id number] VIPUL Last Admin: 07/26/17 20:22 Dose: 80 mls/hr eMAR Start Stop Document 07/26/17 20:22 SS (Rec: 07/26/17 20:22 SS [id number]) Intravenous Solution Start Date 07/26/17 Start Time 20:22 Sodium Chloride (Sodium Chloride 0.9%) 1,000 mls @ 100 mls/hr IV .Q10H STA Stop: 07/27/17 11:56 Last Admin: 07/27/17 04:34 Dose: 100 mls/hr eMAR Start Stop Document 07/27/17 04:34 PCO (Rec: 07/27/17 04:35 PCO [id number]) Intravenous Solution Start Date 07/27/17 Start Time 04:35 End Date 07/27/17 End time 14:30 Total Infusion Time 595 Potassium Chloride (Potassium Chloride 20 Meq/100 Ml) 20 meq in 100 mls @ 50 mls/hr IVPB ONCE ONE Stop: 07/27/17 11:34 Last Admin: 07/27/17 09:57 Dose: 50 mls/hr eMAR Start Stop Document 07/27/17 09:57 SD (Rec: 07/27/17 09:58 SD [id number]) Intravenous Solution Start Date 07/27/17 Start Time 09:58 End Date 07/27/17 End time 11:58 Total Infusion Time 120 Ondansetron HCl (Zofran Inj) 4 mg IVP STAT STA Stop: 07/26/17 19:35 Last Admin: 07/26/17 20:22 Dose: 4 mg IVP Administration Document 07/26/17 20:22 SS (Rec: 07/26/17 20:22 SS [id number]) Charges for Administration # of IVP Administrations 1 - Scribe Statement The provider has reviewed the documentation as recorded by the Scribamanda Rivera All medical record entries made by the Scribe were at my direction and personally dictated by me. I have reviewed the chart and agree that the record accurately reflects my personal performance of the history, physical exam, medical decision making, and the department course for this patient. I have also personally directed, reviewed, and agree with the discharge instructions and disposition. Disposition/Present on Arrival - Present on Arrival Any Indicators Present on Arrival: No History of DVT/PE: No History of Uncontrolled Diabetes: No Urinary Catheter: No History of Decub. Ulcer: No History Surgical Site Infection Following: None - Disposition Have Diagnosis and Disposition been Completed?: Yes Diagnosis: Incarcerated umbilical hernia Disposition: HOSPITALIZED Disposition Time: 01:10 Condition: GOOD
[2017-07-26] MEDS ORDERED: Iohexol 350 MG/100 ML VIAL ONE (22:36)
--- NOTE | 2017-07-27 00:52 | CT ---
EXAM: CT Abdomen and Pelvis With Intravenous Contrast EXAM DATE/TIME: 07/26/2017 8:44 PM CLINICAL HISTORY: The patient age is 52 years old and is female; Pain; Abdominal pain; Generalized; Prior surgery; Surgery date: 6+ months; Surgery type: HX ventral hernia repair; Patient HX: HX rt breast ca and lumpectomy; Additional info: Abd pain Facility exam id and description: Ct abdpelciv abd pelvis iv contrast only TECHNIQUE: Axial computed tomography images of the abdomen and pelvis with intravenous contrast. All CT scans at this facility use one or more dose reduction techniques, viz.: automated exposure control; ma/kV adjustment per patient size (including targeted exams where dose is matched to indication; i.e. head); or iterative reconstruction technique. Coronal and sagittal reformatted images were created and reviewed. CONTRAST: 100 mL of OMNIPAQUE 350 administered intravenously. COMPARISON: CT - ABD PELVIS W/O PO OR IV CONT 2016-12-25 01:43 FINDINGS: Lower thorax: Patchy nonspecific groundglass density is identified within the lung bases bilaterally. ABDOMEN: Liver: There is a band of hypodensity within the anterior liver, which is likely artifactual. Otherwise, there is no visualized hepatic mass. Gallbladder and bile ducts: No calcified stones. No ductal dilation. Pancreas: Normal contour, without acute peripancreatic stranding. Spleen: No splenomegaly. Adrenals: No mass. Kidneys and ureters: No hydronephrosis. No solid mass. Stomach and bowel: There is a large anterior abdominal hernia containing multiple bowel loops. Some bowel loops are distended measuring up to 4.5 cm in diameter. There is stranding of the herniated fat. These findings are suggestive of a strangulated/incarcerated ventral hernia, with closed loop obstruction. There is new wall thickening of small bowel loops within the left side of the mesentery, suggestive of enteritis. There is a new sac-like area of small bowel loops in the left side the abdomen, and an internal hernia cannot be excluded. Moderate fecal material is identified within the colon. Appendix: The appendix is not visualized. PELVIS: Bladder: No mass. Reproductive: There is marked enlargement of the uterus, with uterine fibroids. Some of these masses are calcified. One of the larger masses is seen on the right side measuring 12.9 x 12.0 x 9.5 cm. ABDOMEN and PELVIS: Intraperitoneal space: There is mild abdominal and pelvic ascites. Bones/joints: Hypertrophic degenerative changes are noted within the spine. Soft tissues: See above. Vasculature: No abdominal aortic aneurysm. Lymph nodes: Scattered small retroperitoneal and intrapelvic lymph nodes are identified, without significant lymphadenopathy. Other findings: There is stranding of the abdominal mesentery, most significant anteriorly and on the left side. IMPRESSION: 1. There is a large anterior abdominal hernia containing multiple bowel loops. Some bowel loops are distended measuring up to 4.5 cm in diameter. There is stranding of the herniated fat. These findings are suggestive of a strangulated/incarcerated ventral hernia, with closed loop obstruction. 2. There is stranding of the abdominal mesentery, most significant anteriorly and on the left side. 3. There is new wall thickening of small bowel loops within the left side of the mesentery, suggestive of enteritis. 4. There is a new sac-like area of small bowel loops in the left side the abdomen, and an internal hernia cannot be excluded. 5. There is mild abdominal and pelvic ascites. 6. There is marked enlargement of the uterus, with uterine fibroids. 7. Additional CT findings described above. 8. Surgical consultation is recommended.
[2017-07-27] MEDS ORDERED: Sodium Chloride 0.9% 1,000 ML IV STA (01:57)
[2017-07-27 02:34] LABS: VENOUS BLOOD GAS BASE EXCESS 1.2 mmol/L (0.0-2.0); VENOUS BLOOD GAS PO2 45 mm/Hg (30-55)
[2017-07-27 02:47] LABS: URINE BILIRUBIN NEGATIVE (NEGATIVE); URINE BLOOD LARGE (NEGATIVE); URINE GLUCOSE (UA) NEGATIVE (NEGATIVE); URINE LEUKOCYTE ESTERASE NEGATIVE Leu/uL (NEGATIVE); URINE PROTEIN TRACE mg/dL (<30 mg/dL); URINE UROBILINOGEN 0.2 E.U./dL (<1 E.U./dL)
[2017-07-27 02:49] LABS: URINE APPEARANCE SL CLOUDY (CLEAR); URINE COLOR YELLOW (YELLOW)
[2017-07-27 02:56] LABS: URINE BACTERIA SMALL (NEG); URINE WBC 0 - 2 /hpf (0-6)
--- NOTE | 2017-07-27 04:55 | CP.PCM.CON ---
History of Present Illness - History of Present Illness History of Present Illness: Surgery: Dr. Davis CC: Abd pain HPI: 52F w. pmh of DM, uterine fibroids, Breast CA, depression/anxiety, hx of ventral hernia w. repair in 2013 presents to ED w. diffuse abd pain. Pt states that her depression and anxiety causes her to over eat and this results in abd pain. Pt states that her abd pain is diffuse, constant, and described as crampy. Pt states that this has occurred several times in the past. And has resolved w. conservative management. Pt reports nausea and vomiting, non-bloody non bilious she also reports flatus and multiple BMs. She denies any fevers and reports chills. She had CT done in ED which showed findings suggestive of incarcerated closed loop ventral hernal for which surgery was consulted. The CT is comparable and unchanged to several other CTs done in the past. When pt was seen in ED she was in NO obvious distress and states that pain resolved, the only medicine she was given in ED was zofran and an NGT was placed. PMH: see above PSH: ventral hernia 2014, Breast surgery Meds: MAR reviewed ALL: benztropine, fluoxetine Social: No ETOH/tobacco/drugs Fhx: Non-contributory Review of Systems - Review of Systems All systems: reviewed and no additional remarkable complaints except (HPI) Past Patient History - Infectious Disease Hx of Infectious Diseases: None - Tetanus Immunizations Tetanus Immunization: Unknown - Past Medical History & Family History Past Medical History?: Yes - Past Social History Smoking Status: Never Smoked - CARDIAC Hx Cardiac Disorders: Yes Hx Hypertension: Yes - PULMONARY Hx Respiratory Disorders: No - NEUROLOGICAL Hx Neurological Disorder: No - HEENT Hx HEENT Problems: No - RENAL Hx Chronic Kidney Disease: No - ENDOCRINE/METABOLIC Hx Endocrine Disorders: Yes Hx Diabetes Mellitus Type 2: Yes - HEMATOLOGICAL/ONCOLOGICAL Hx Blood Disorders: Yes Hx Cancer: Yes (Breast R) - INTEGUMENTARY Hx Dermatological Problems: No - MUSCULOSKELETAL/RHEUMATOLOGICAL Hx Musculoskeletal Disorders: No Hx Falls: No - GASTROINTESTINAL Hx Gastrointestinal Disorders: Yes Other/Comment: Claims to have"Eating Disorder" where she eats frequently to excess. History of Ventral Hernia - GENITOURINARY/GYNECOLOGICAL Hx Genitourinary Disorders: Yes Hx Sexually Transmitted Disorders: Yes (Genital Herpes) - PSYCHIATRIC Hx Psychophysiologic Disorder: Yes Hx Anxiety: Yes Hx Depression: Yes Hx Post Traumatic Stress Disorder: Yes Hx Substance Use: No - SURGICAL HISTORY Hx Breast Biopsy: Yes (right breast lumpectomy) - ANESTHESIA Hx Anesthesia: Yes Hx Anesthesia Reactions: No Meds Allergies/Adverse Reactions: Allergies Allergy/AdvReac Type Severity Reaction Status Date / Time benztropine mesylate Allergy RASH Verified 07/26/17 19:08 [From Cogentin] fluoxetine HCl [From Prozac] Allergy RASH Verified 07/26/17 19:08 omeprazole Allergy RASH Verified 07/26/17 19:08 - Medications Medications: Current Medications Sodium Chloride (Sodium Chloride 0.9%) 1,000 mls @ 80 mls/hr IV .[id number] Last Admin: 07/26/17 20:22 Dose: 80 mls/hr Sodium Chloride (Sodium Chloride 0.9%) 1,000 mls @ 100 mls/hr IV .Q10H STA Stop: 07/27/17 11:56 Last Admin: 07/27/17 04:34 Dose: 100 mls/hr Ondansetron HCl (Zofran Inj) 4 mg IVP Q6H PRN PRN Reason: Nausea/Vomiting Physical Exam - Constitutional Appears: Non-toxic, No Acute Distress - Head Exam Head Exam: ATRAUMATIC, NORMOCEPHALIC - Eye Exam Eye Exam: EOMI Pupil Exam: NORMAL ACCOMODATION - ENT Exam ENT Exam: Mucous Membranes Moist - Neck Exam Neck exam: Positive for: Full Rom - Respiratory Exam Respiratory Exam: NORMAL BREATHING PATTERN. absent: Accessory Muscle Use, Respiratory Distress - GI/Abdominal Exam GI & Abdominal Exam: Hernia (ventral- reducible excpet for umbilical portion but this portion is non tender), Soft. absent: Distended, Firm, Guarding, Rebound, Rigid, Tenderness - Extremities Exam Extremities exam: Negative for: calf tenderness, pedal pulses present - Neurological Exam Neurological exam: Alert, Oriented x3 - Psychiatric Exam Psychiatric exam: Normal Affect, Normal Mood Results - Vital Signs Recent Vital Signs: Last Vital Signs Temp 98.6 F 07/27/17 04:05 Pulse 82 07/27/17 04:05 Resp 18 07/27/17 03:41 BP 158/92 H 07/27/17 04:05 Pulse Ox 100 07/27/17 04:05 - Labs Result Diagrams: 07/26/17 20:11 07/26/17 20:11 Labs: Laboratory Results - last 24 hr 07/27/17 07/27/17 02:08 02:08 pO2 45 VBG pH 7.30 L VBG pCO2 59.0 VBG HCO3 29.0 H VBG Total CO2 30.8 H VBG O2 Sat (Calc) 80.5 H VBG Base Excess 1.2 VBG Potassium 4.1 Sodium 137.0 Chloride 105.0 Glucose 106 H Lactate 1.4 FiO2 21.0 Venous Blood Potassium 4.1 Urine Color Yellow Urine Appearance Sl cloudy Urine pH 6.0 Ur Specific [place] >= 1.030 Urine Protein Trace H Urine Glucose (UA) Negative Urine Ketones >=80 Urine Blood Large H Urine Nitrate Negative Urine Bilirubin Negative Urine Urobilinogen 0.2 Ur Leukocyte Esterase Negative Urine RBC 2 - 5 Urine WBC 0 - 2 Ur Epithelial Cells 1 - 3 Urine Bacteria Small - Imaging and Cardiology CT scan - abdomen Status: Image reviewed by me, Report reviewed by me Assessment & Plan - Assessment and Plan (Free Text) Assessment: 52F w. abd pain, incarcerated closed loop obstruction unlikely Plan: -NPO -IVF -NGT placed by ED, low continuous suction -serial abd exams -no acute surgical intervention needed -will nick attending Queenie PGY3
--- NOTE | 2017-07-27 19:36 | CARD ---
APPROVED REPORT EKG Measurement Heart [id number] <Conclusion> Normal sinus rhythm Voltage criteria for left ventricular hypertrophy T wave abnormality, consider inferior ischemia Abnormal ECG
--- NOTE | 2017-07-28 03:04 | HP ---
HISTORY OF PRESENT ILLNESS: Patient is 52 years old, known to me from previous admissions, came to emergency room because of abdominal discomfort, nausea. Patient states she has been lately under lot of stress that is why she has been eating too much and that is why probably she developed abdominal discomfort. Pain was diffuse and cramping. Denies any hemoptysis or hematemesis. No history of rectal bleeding. Patient has nasogastric tube placed and drained some yellowish fluid, since then she states she is feeling a lot better. PAST MEDICAL HISTORY: Significant for: 1. Non-insulin dependent diabetes. 2. History of CA breast. 3. Anxiety disorder. 4. History of ventral hernia repair in 2013. 5. Status post right lumpectomy because of breast cancer. FAMILY HISTORY: Not relevant. SOCIAL HISTORY: Denies smoking, drinking, or alcohol use. She lives in assisted living. ALLERGIES: SHE IS ALLERGIC TO COGENTIN, PROZAC, OMEPRAZOLE. MEDICATIONS AT HOME: She is on: 1. Xanax 0.5 daily. 2. Abilify 30 mg daily. 3. Ascorbic acid 1 mg daily. 4. Diazepam 5 mg twice a day. 5. Ferrous sulfate 325 daily. 6. Ibuprofen 800 twice a day as needed. 7. Metformin 500 daily. 8. Magnesium 200 mg daily. 9. Ramipril 2.5 daily. 10. Simvastatin 10 mg daily. 11. Tamoxifen 20 mg daily. 12. Paxil 37.5 daily. REVIEW OF SYSTEMS: Significant for some periumbilical discomfort. PHYSICAL EXAMINATION: GENERAL: She is awake, alert, oriented, communicative. VITAL SIGNS: She is afebrile, pulse 79, respirations 20, blood pressure 120/76. LUNGS: Bilateral good airflow. No rhonchi or crackle. HEART: S1, S2 audible. ABDOMEN: Soft. She has slight abdominal discomfort in the umbilical area. Hernias are reducible. She has some palpable mass around the umbilical area, probably scar tissue, but she has no rebound or guarding. LABORATORY DATA: WBC 7.6, hemoglobin 10.3, hematocrit 34.3, platelet of 337. PT 11.3, INR 0.99. Chemistry: Sodium 137, potassium 3.5, chloride 104, CO2 of 23, BUN 9, creatinine 0.6, blood sugar of 156. AST 59, ALT 34, amylase is 182. CT scan of the abdomen and pelvis was done that shows large anterior abdominal hernia containing multiple bowel loops. Some bowel loops are distended measuring 4.5 cm in diameter, stranding of the herniated fat, stranding of abdominal mesentery. There is new wall thickening of small bowel loop within the left side of mesentery suggestive of enteritis. ASSESSMENT: 1. Partial small bowel obstruction. 2. Ventral hernia, does not seem to be incarcerated. 3. Fibroid uterus. 4. History of depression. 5. Hypokalemia. 6. Chronic anemia. PLAN: We will keep patient on clear liquid. Continue on IV fluid. Continue her on Zofran as needed. Start her on Protonix. Out of bed to chair. We will follow up patient in a.m. Lemuel Quintana MD
[2017-07-28 07:25] LABS: HEMOGLOBIN 8.7 g/dL (12.0-16.0); MEAN CELL VOLUME 78.6 fl (80.0-105.0); MEAN CORPUSCULAR HEMOGLOBIN 23.5 pg (25.0-35.0); MEAN CORPUSCULAR HGB CONC 29.9 g/dl (31.0-37.0); RBC 3.7 10^6/uL (3.5-6.1); RED CELL DISTRIBUTION WIDTH 19.2 % (11.5-14.5); WHITE BLOOD COUNT 4.1 10^3/ul (4.5-11.0)
[2017-07-28 07:40] LABS: ALBUMIN 3.3 g/dL (3.0-4.8); ALT/SGPT 25 U/L (7-56); AST/SGOT 44 U/L (14-36); BLOOD UREA NITROGEN 8 mg/dL (7-21); CALCIUM 8.9 mg/dL (8.4-10.5); GFR AFRICAN-AMERICAN > 60; GFR NON-AFRICAN AMERICAN > 60
--- NOTE | 2017-07-28 08:05 | CP.PCM.PN ---
Subjective - Date & Time of Evaluation Date of Evaluation: 07/28/17 Time of Evaluation: 08:05 - Subjective Subjective: Surgery: Dr. Davis Patient resting comfortably. Patient has no complaints of pain at this time. Patient tolerated CLD w/o n/v. Objective - Vital Signs/Intake and Output Vital Signs (last 24 hours): Temp Pulse Resp BP Pulse Ox 98.9 F 80 13 130/88 95 07/27/17 22:00 07/27/17 22:00 07/27/17 22:00 07/27/17 22:00 07/27/17 14:00 Intake and Output: 07/28/17 07/28/17 06:59 18:59 Intake Total 950 Balance 950 - Medications Medications: Current Medications Alprazolam (Xanax) 0.25 mg PO BID PRN; Protocol PRN Reason: Anxiety Stop: 08/04/17 10:01 Ondansetron HCl (Zofran Inj) 4 mg IVP Q6H PRN PRN Reason: Nausea/Vomiting Pantoprazole Sodium (Protonix Inj) 40 mg IVP DAILY VIPUL - Labs Labs: 07/28/17 07:00 07/28/17 07:00 PT 11.3 SECONDS (9.4-12.5) 07/26/17 20:11 INR 0.99 (0.93-1.08) 07/26/17 20:11 APTT 23.7 Seconds (25.1-36.5) L 07/26/17 20:11 - Constitutional Appears: Non-toxic, No Acute Distress - Head Exam Head Exam: ATRAUMATIC, NORMOCEPHALIC - Eye Exam Eye Exam: EOMI, Normal appearance - ENT Exam ENT Exam: Mucous Membranes Moist - Respiratory Exam Respiratory Exam: NORMAL BREATHING PATTERN. absent: Respiratory Distress - Cardiovascular Exam Cardiovascular Exam: REGULAR RHYTHM. absent: Tachycardia - GI/Abdominal Exam GI & Abdominal Exam: Distended. absent: Guarding, Tenderness, Rebound - Neurological Exam Neurological Exam: Alert, Awake - Skin Skin Exam: Dry, Warm Assessment and Plan - Assessment and Plan (Free Text) Assessment: 52 y/o female w/ ventral hernia and large fibroid uterus Plan: ADAT, not clinically obstructed patient will need hysterectomy prior to hernia repair, discussed with patient multiple times no acute surgical intervention at this time further recs per Dr. Davis [facility] PGY3
[2017-07-28 16:04] VITALS: BP 124/82; PULSE 86; RESP 20; TEMP 98.4; O2SAT 100
--- NOTE | 2017-07-28 23:01 | CON ---
DATE:HISTORY OF PRESENT ILLNESS: In short, the patient is a 52-year-old -[place] female who reported history of depression and anxiety, most likely the patient has history of schizoaffective disorder. The patient was brought in for evaluation of abdominal pain. Psych consult was called for evaluation of medication as well as possible med management. The patient was seen and examined. The patient was pleasant and cooperative. The patient deemed to be a fair historian. The patient reported that she was not doing fine recently, but she is taking her medications. At times, she has difficulty to fill her medication because of high co-payment. The patient reported that she is seeing Dr. Tobias Chaidez, local psychiatrist. She sees him on monthly basis. The patient reported that she is trying her best in the compliant with her medication. She fills that in [facility] pharmacy at [place]. This scientific technical writer called and confirmed medication list by pharmacy, phone number is [phone]. The patient was on Wellbutrin XL 300 mg daily. The patient was on BuSpar 15 mg twice a day, Abilify 30 mg at the nighttime and Valium 5 mg four times a day. The patient filled the medication at the beginning of the June. The patient has two refills left. This scientific technical writer also reviewed previous history. The patient was admitted into [facility] in 2013 and was diagnosed with schizoaffective disorder. Going back to the patient's presentation, vital signs reviewed, medications reviewed, and labs reviewed. MENTAL STATUS EXAMINATION: The patient appears to be alert, oriented in self, time and place. The patient is aware of the circumstances of her admission to the medical side. Fair eye contact. Mood described as "at time I feel anxious." Affect was reactive. Mood congruent. Speech was overproductive but not pressured. Thought process was over inclusive, seems to be circumstantial. The patient denied hearing voices, denied seeing things. At the same time, the patient appears to be mildly paranoid towards the landlord. When this scientific technical writer asked about her paranoia, the patient feels that patient's landlord is sexually attracted to her. The patient denied any angry feelings toward nobody. The patient denied thoughts of harming herself or others. Insight and judgment seems to be fair. Impulses are well controlled. Collaterals from the nursing staff. The patient was compliant with the medications and unit rules and regulations, does not have any aggressive or angry outbursts and was calm and cooperative. Going back to the previously history, as per [facility] history, the patient has been diagnosed with OCD, binge eating disorder. The patient seems to have good understanding of her eating disorder. IMPRESSION: Most likely the patient has schizoaffective disorder, rule out obsessive-compulsive disorder, rule out eating disorder. PLAN: This scientific technical writer called and confirmed all of the medications. The patient has followup appointment with Dr. Tobias Chaidez next Tuesday. The patient has two refills left in the pharmacy. The patient does not meet the criteria to be screened. This scientific technical writer offered patient's admission to the Psychiatric Inpatient Unit, but the patient declined that offer. The patient has future oriented plans. The patient wants to apply for Medicaid in order not to have high co-payments for her medication. The patient reported that she has supportive family, but she lives independently. The patient pose no imminent danger to self or others. This scientific technical writer will sign off. Should you have any questions give me a call back. As per nursing staff, the patient was scheduled for discharge today. Thank you very much for letting me participate in care of your patient. Annika Calloway MD
--- NOTE | 2017-07-29 14:22 | DS ---
HISTORY OF PRESENT ILLNESS: The patient is a 52-year-old who came in with abdominal pain. The patient states she has been stress-eating and gained some weight and has been having increasing abdominal discomfort that got well. She came through emergency room and she was found to have partial small bowel obstruction with some induration around her belly button. The patient has a nasogastric tube placed. After that, she had bowel movement and she started to feel better. PAST MEDICAL HISTORY: The patient has significant past medical history of: 1. Depression with anxiety disorder. 2. Fibroid uterus. 3. Ivx-hijtbtw-qlgskuban diabetes. 4. History of CA breast, status post lumpectomy. 5. Anxiety disorder. 6. History of ventral hernia repair in 2013. PHYSICAL EXAMINATION: GENERAL: She is awake, alert, oriented, communicative. Eating and tolerating. No nausea or vomiting. No diarrhea. VITAL SIGNS: The patient is afebrile. Pulse 86, respirations 20, blood pressure 124/82. LUNGS: Bilateral good airflow. No rhonchi or crackle. HEART: S1 and S2 audible. ABDOMEN: Soft, nontender. She has induration and lump around her umbilical area. NEUROLOGIC: The patient is awake, alert, oriented, communicative. LABORATORY DATA: WBC is 4.1, hemoglobin 8.7, hematocrit 29.1, platelets of 236. Chemistry: Sodium 141, potassium 3.9, chloride 108, CO2 of 26, BUN 8, creatinine 0.7, blood sugar 75. ASSESSMENT: 1. Partial small bowel obstruction. 2. Ventral hernia. 3. Anxiety disorder. 4. Ecp-qqzbxnv-wfrzmgeby diabetes. 5. Chronic anemia. PLAN: The patient was given a dose of Venofer. Dr. Vieira will be consulted. The patient will follow up in her office for intermittent Venofer infusion. The patient has been instructed many times to follow with coin wrapping machine operator to have either hysterectomy or myomectomy done since she is getting this pain after that problem is resolved. Dr. Davis stated he will take care of the patient's ventral hernia. She will resume her medication. She will follow with her PMD. Lemuel Quintana MD [facility] # [id number]
== END 2017-07-28 17:33 | disposition home or self-care (01) ==
LOC: ED 18:15 → ERH 07-27 01:56 → UNDOADMOB 07-27 02:07 → ERH 07-27 02:07 → 5RSO 07-27 04:05
PROVIDERS: ADMIT Internal Medicine; ATTEND Internal Medicine
DX: K43.6 Other and unspecified ventral hernia with obstruction, without gangrene (principal); I10 Essential (primary) hypertension; E11.9 Type 2 diabetes mellitus without complications; E87.6 Hypokalemia; D64.9 Anemia, unspecified; Z85.3 Personal history of malignant neoplasm of breast; D25.9 Leiomyoma of uterus, unspecified; F32.9 Major depressive disorder, single episode, unspecified; F25.9 Schizoaffective disorder, unspecified; Z79.84 Long term (current) use of oral hypoglycemic drugs
CPT/HCPCS: 36415; 74177; 80053; 81001; 82150; 82550; 82553; 82803; 82948; 83615; 83690; 84484; 85025; 85027; 85610; 85730; 87040; 93005; 96361; 96365; 96375; 99285; G0378; J1756; J2405; J3480; J7040; Q9967

== ENCOUNTER 2017-09-07 00:11 | Observation (INO) | payer MEDICARE, OTHER ==
[2017-09-07 00:38] VITALS: BMI 25.7
--- NOTE | 2017-09-07 01:14 | ED PDOC ---
Arrival/HPI <Patrick Ryan - Last Filed: 09/07/17 04:52> - General Historian: Patient - History of Present Illness Time/Duration: Prior to Arrival Quality: Aching Context: Home <Hamlet Diehl - Last Filed: 09/09/17 20:24> - General Chief Complaint: Abdominal Pain Time Seen by Provider: 09/07/17 01:13 - History of Present Illness Narrative History of Present Illness (Text): 09/07/17 01:14 Aliya Meaz is a 52 year old female, whose past medical history includes ventral hernia, diabetes, hypertension, right-sided breast cancer s/p lumpectomy , anxiety, and depression, who presents to the emergency department complaining of abdominal pain x LOFTSMAN. Denies rectal bleeding, sob, cp, dizziness, urinary symptoms, or abnormal gait. (Hamlet Diehl) Past Medical History - Provider Review Nursing Documentation Reviewed: Yes - Past History Past History: No Previous - Infectious Disease Hx of Infectious Diseases: None - Tetanus Immunization Tetanus Immunization: Unknown - Cardiac Hx Cardiac Disorders: Yes Hx Hypertension: Yes - Pulmonary Hx Respiratory Disorders: No - Neurological Hx Neurological Disorder: No - HEENT Hx HEENT Disorder: No - Renal Hx Renal Disorder: No - Endocrine/Metabolic Hx Endocrine Disorders: Yes Hx Diabetes Mellitus Type 2: Yes - Hematological/Oncological Hx Blood Disorders: Yes Hx Cancer: Yes (Breast R) - Integumentary Hx Dermatological Disorder: No - Musculoskeletal/Rheumatological Hx Musculoskeletal Disorders: No Hx Falls: No - Gastrointestinal Hx Gastrointestinal Disorders: Yes Other/Comment: Claims to have"Eating Disorder" where she eats frequently to excess. History of Ventral Hernia - Genitourinary/Gynecological Hx Genitourinary Disorders: Yes Hx Sexually Transmitted Diseases: Yes (Genital Herpes) - Psychiatric Hx Psychophysiologic Disorder: Yes Hx Anxiety: Yes Hx Depression: Yes Hx Post Traumatic Stress Disorder: Yes Hx Substance Use: No - Past Surgical History Past Surgical History: Unable to Obtain - Surgical History Hx Breast Biopsy: Yes (right breast lumpectomy) - Anesthesia Hx Anesthesia: Yes Hx Anesthesia Reactions: No - Suicidal Assessment Feels Threatened In Home Enviroment: No <Hamlet Diehl - Last Filed: 09/09/17 20:24> Family/Social History - Physician Review Nursing Documentation Reviewed: Yes Family/Social History: Other (noncontributory) Smoking Status: Never Smoked Hx Alcohol Use: No Hx Substance Use: No Hx Substance Use Treatment: No <Hmalet Diehl - Last Filed: 09/09/17 20:24> Allergies/Home Meds <ShelbyPatrick - Last Filed: 09/07/17 04:52> <Hamlet Diehl - Last Filed: 09/09/17 20:24> Allergies/Adverse Reactions: Allergies benztropine mesylate [From Cogentin] Allergy (Verified 09/07/17 00:44) RASH fluoxetine HCl [From Prozac] Allergy (Verified 09/07/17 00:44) RASH omeprazole Allergy (Verified 09/07/17 00:44) RASH Home Medications: Home Meds Medication Instructions Recorded Confirmed Glipizide-Metformin 5-500 mg 09/08/17 PARoxetine [Paxil] 10 mg PO DAILY 09/08/17 09/08/17 Simvastatin [Zocor] 09/08/17 busPIRone [Buspar] 5 mg PO 09/08/17 Review of Systems - Review of Systems Constitutional: Normal. absent: Fatigue, Weight Change, Fevers Eyes: Normal ENT: Normal Respiratory: Normal Cardiovascular: Normal Gastrointestinal: Abdominal Pain, Nausea, Vomiting, Other (ventral hernia). absent: Constipation, Diarrhea Genitourinary Female: Normal. absent: Dysuria, Frequency, Hematuria Musculoskeletal: Normal. absent: Back Pain, Neck Pain Skin: Normal. absent: Rash Neurological: Normal. absent: Headache, Dizziness, Focal Weakness, Gait Changes , Speech Changes, Facial Droop Endocrine: Normal Hemo/Lymphatic: Normal Psychiatric: Normal <Hamlet Diehl - Last Filed: 09/09/17 20:24> Physical Exam Temperature: Afebrile Blood Pressure: Normal Pulse: Regular Respiratory Rate: Normal Appearance: Positive for: Well-Appearing, Non-Toxic, Comfortable Pain Distress: None Mental Status: Positive for: Alert and Oriented X 3 - Systems Exam Head: Present: Atraumatic, Normocephalic Pupils: Present: PERRL Extroacular Muscles: Present: EOMI Conjunctiva: Present: Normal Mouth: Present: Moist Mucous Membranes Neck: Present: Normal Range of Motion Respiratory/Chest: Present: Clear to Auscultation, Good Air Exchange. No: Respiratory Distress, Accessory Muscle Use Cardiovascular: Present: Regular Rate and Rhythm, Normal S1, S2. No: Murmurs Abdomen: Present: Hernias (mild tender on palpation). No: Tenderness, Distention, Peritoneal Signs, Rebound, Guarding Back: Present: Normal Inspection. No: CVA Tenderness Upper Extremity: Present: Normal Inspection, Normal ROM. No: Cyanosis, Edema Lower Extremity: Present: Normal Inspection, NORMAL PULSES, Normal ROM. No: Edema Neurological: Present: GCS=15, CN II-XII Intact, Speech Normal, Motor Func Grossly Intact, Normal Sensory Function, Normal Cerebellar Funct, Gait Normal, Memory Normal Skin: Present: Warm, Dry, Normal Color. No: Rashes Psychiatric: Present: Alert, Oriented x 3, Normal Insight, Normal Concentration <FazalTanishagerry P - Last Filed: 09/09/17 20:24> Vital Signs Temp Pulse Resp BP Pulse Ox 09/07/17 06:12 98.0 F 74 17 125/74 100 09/07/17 05:50 74 17 125/74 100 09/07/17 03:28 73 17 124/76 100 09/07/17 00:38 97.9 F 82 18 140/66 100 Medical Decision Making - Lab Interpretations I have reviewed the lab results: Yes - RAD Interpretation Customer Service Technician: Radiologist <Patrick Ryan - Last Filed: 09/07/17 04:52> - Lab Interpretations I have reviewed the lab results: Yes Interpretation: No clinic. lab abnormalty <DiehlHamlet P - Last Filed: 09/09/17 20:24> ED Course and Treatment: 09/07/17 04:39 CT Abdomen and Pelvis shows: Limitations: Lack of intravenous contrast. Lung bases: No acute findings. ABDOMEN: Liver: Unremarkable. Gallbladder and bile ducts: No calcified stones. No ductal dilation. Pancreas: Unremarkable. No ductal dilation. Spleen: No splenomegaly. Adrenals: No mass. Kidneys and ureters: No obstructing stones. No hydronephrosis. Stomach and bowel: Postsurgical changes of small bowel. Large ventral hernia containing multiple mildly dilated loops of small bowel. Mild stranding of mesentery within and subjacent to hernia. No definite mural thickening. PELVIS: Appendix: No findings to suggest acute appendicitis. Bladder: Unremarkable. No stones. Reproductive: Markedly enlarged, lobulated uterus with multiple masses and coarse calcifications. ABDOMEN and PELVIS: Intraperitoneal space: Small free fluid within abdomen. Bones/joints: Early degenerative changes of spine. No acute fracture. Soft tissues: See above. Vasculature: Unremarkable. No aneurysm. Lymph nodes: No pathologically enlarged lymph nodes. IMPRESSION: 1. Large ventral hernia containing dilated loops of small bowel with stranding of mesentery concerning for strangulation and obstruction. 2. Probable fibroid uterus. 3. Incidental/non-acute findings are described above. 09/07/17 04:42 Case discussed with residential remodeling subcontractor supervisor computer operations, who is aware and agrees with plan. 09/07/17 04:[address] Quintana, who is aware and agrees with plan. Accepts pt in to her service. Pt [facility] go to [facility] observation for small bowel obstruction. Requests Dr. Davis on consult. (Patrick Ryan) - Lab Interpretations Lab Results: 09/07/17 01:42 09/07/17 01:42 Lab Results 09/07/17 02:46: Urine Color Yellow, Urine Appearance Clear, Urine pH 6.0, Ur Specific [place] 1.020, Urine Protein Trace H, Urine Glucose (UA) Negative, Urine Ketones Negative, Urine Blood Negative, Urine Nitrate Negative, Urine Bilirubin Negative, Urine Urobilinogen 0.2, Ur Leukocyte Esterase Negative, Urine RBC 0 - 2, Urine WBC 0 - 2, Ur Epithelial Cells 1 - 3, Urine Bacteria Small 09/07/17 01:42: Sodium 141, Potassium 4.1, Chloride 103, Carbon Dioxide 28, Anion Gap 14, BUN 11, Creatinine 0.7, Est GFR ( Amer) > 60, Est GFR (Non- Af Amer) > 60, Random Glucose 112 H, Calcium 8.7, Magnesium 1.9, Total Bilirubin 0.3, AST 63 H D, ALT 29, Alkaline Phosphatase 43, Total Protein 7.2, Albumin 3.9, Globulin 3.3, Albumin/Globulin Ratio 1.2, Lipase 105 09/07/17 01:42: PT 11.7, INR 1.03, APTT 27.4 09/07/17 01:42: WBC 6.6 D, RBC 3.55, Hgb 8.5 L, Hct 28.2 L, MCV 79.4 L, MCH 23.9 L, MCHC 30.1 L, RDW 18.3 H, Plt Count 295, MPV 8.5, Gran % 87.4 H, Lymph % (Auto) 7.7 L, [place] % (Auto) 4.4, Eos % (Auto) 0.3 L, Baso % (Auto) 0.2, Gran # 5.80, Lymph # (Auto) 0.5 L, [place] # (Auto) 0.3, Eos # (Auto) 0.0, Baso # (Auto) 0.01 - RAD Interpretation Radiology Orders: 09/07/17 01:14 ABD & PELVIS W/O PO OR IV CONT [CT] Stat - Medication Orders Current Medication Orders: Discontinued Medications Alprazolam (Xanax) 0.25 mg PO TID VIPUL PRN Reason: Protocol Stop: 09/14/17 14:01 Last Admin: 09/08/17 10:07 Dose: 0.25 mg Behavioural Document 09/08/17 10:07 AJ (Rec: 09/08/17 10:07 AJ [id number]) Maintenance Maintenance Dose Yes Nonmedicinal Nonmedicinal Interventions Redirect Behavior Behavior for Medication: Anxiety Aripiprazole (Abilify) 15 mg PO HS VIPUL PRN Reason: Protocol Last Admin: 09/07/17 21:33 Dose: 15 mg Behavioural Document 09/07/17 21:33 BR (Rec: 09/07/17 21:33 BR [id number]) Maintenance Maintenance Dose Yes Sodium Chloride (Sodium Chloride 0.9%) 1,000 mls @ 100 mls/hr IV .Q10H STA Stop: 09/07/17 14:52 Last Admin: 09/07/17 05:35 Dose: 100 mls/hr eMAR Start Stop Document 09/07/17 05:35 IT (Rec: 09/07/17 05:36 IT [id number]) Intravenous Solution Start Date 09/07/17 Start Time 05:36 Famotidine (Pepcid 20mg/50ml Premix) 20 mg in 50 mls @ 100 mls/hr IVPB DAILY [facility] Last Admin: 09/07/17 10:49 Dose: 100 mls/hr eMAR Start Stop Document 09/07/17 10:49 CV (Rec: 09/07/17 10:49 CV [id number]) Intravenous Solution Start Date 09/07/17 Start Time 10:49 Insulin Human Regular (Humulin R Low) 0 units SC ACHS [facility] PRN Reason: Protocol Last Admin: 09/08/17 12:00 Dose: Not Given Non-Admin Reason: Blood Sugar Parameter MAR Blood Glucose Document 09/08/17 12:00 LYNSEY (Rec: 09/08/17 12:01 [id number]) Blood Glucose Finger Stick Blood Glucose (70-120) 82 Morphine Sulfate (Morphine) 2 mg IVP Q4H PRN PRN Reason: Pain, moderate (4-7) Ondansetron HCl (Zofran Inj) 4 mg IVP Q6H PRN PRN Reason: Nausea/Vomiting Ondansetron HCl (Zofran Inj) 4 mg IVP Q6H PRN PRN Reason: Nausea/Vomiting Pantoprazole Sodium (Protonix Inj) 40 mg IVP DAILY [facility] Last Admin: 09/08/17 10:06 Dose: 40 mg IVP Administration Document 09/08/17 10:06 LYNSEY (Rec: 09/08/17 10:07 [id number]) Charges for Administration # of IVP Administrations 1 Disposition/Present on Arrival <Patrick Ryan - Last Filed: 09/07/17 04:52> - Present on Arrival Any Indicators Present on Arrival: No History of DVT/PE: No History of Uncontrolled Diabetes: No Urinary Catheter: No History of Decub. Ulcer: No History Surgical Site Infection Following: None - Disposition Have Diagnosis and Disposition been Completed?: Yes Disposition Time: 03:00 Patient Plan: Admission <Hamlet Diehl - Last Filed: 09/09/17 20:24> - Disposition Diagnosis: Bowel obstruction, Abdominal pain Disposition: HOSPITALIZED Condition: STABLE
[2017-09-07 02:11] LABS: BASO # 0.01 K/mm3 (0.0-2.0); BASO % 0.2 % (0.0-3.0); EOS % 0.3 % (1.5-5.0); GRAN # 5.8 (1.4-6.5); GRAN % 87.4 % (50.0-68.0); HEMOGLOBIN 8.5 g/dL (12.0-16.0); LYMPH # 0.5 (1.2-3.4); LYMPH % 7.7 % (22.0-35.0); MEAN CELL VOLUME 79.4 fl (80.0-105.0); MEAN CORPUSCULAR HEMOGLOBIN 23.9 pg (25.0-35.0); MEAN CORPUSCULAR HGB CONC 30.1 g/dl (31.0-37.0); MEAN PLATELET VOLUME 8.5 fl (7.0-11.0); MONO # 0.3 (0.1-0.6); MONO % 4.4 % (1.0-6.0); RBC 3.55 10^6/uL (3.5-6.1); RED CELL DISTRIBUTION WIDTH 18.3 % (11.5-14.5); WHITE BLOOD COUNT 6.6 10^3/ul (4.5-11.0)
[2017-09-07 02:17] LABS: PROTHROMBIN TIME 11.7 SECONDS (9.4-12.5)
[2017-09-07 02:18] LABS: INR 1.03 (0.93-1.08); PARTIAL THROMBOPLASTIN TIME 27.4 Seconds (25.1-36.5)
[2017-09-07 02:20] LABS: ALB/GLOB RATIO 1.2 (1.1-1.8); ALBUMIN 3.9 g/dL (3.0-4.8); ALT/SGPT 29 U/L (7-56); AST/SGOT 63 U/L (14-36); BLOOD UREA NITROGEN 11 mg/dL (7-21); CALCIUM 8.7 mg/dL (8.4-10.5); GFR AFRICAN-AMERICAN > 60; GFR NON-AFRICAN AMERICAN > 60; LIPASE 105 U/L (23-300)
[2017-09-07 03:37] LABS: URINE BILIRUBIN NEGATIVE (NEGATIVE); URINE BLOOD NEGATIVE (NEGATIVE); URINE GLUCOSE (UA) NEGATIVE (NEGATIVE); URINE LEUKOCYTE ESTERASE NEGATIVE Leu/uL (NEGATIVE); URINE PROTEIN TRACE mg/dL (<30 mg/dL); URINE UROBILINOGEN 0.2 E.U./dL (<1 E.U./dL)
[2017-09-07 04:14] LABS: URINE APPEARANCE CLEAR (CLEAR); URINE COLOR YELLOW (YELLOW)
[2017-09-07 04:17] LABS: URINE RBC 0 - 2 /hpf (0-2)
[2017-09-07 04:18] LABS: URINE BACTERIA SMALL (NEG); URINE WBC 0 - 2 /hpf (0-6)
--- NOTE | 2017-09-07 04:32 | CT ---
EXAM: CT Abdomen and Pelvis Without Intravenous Contrast CLINICAL HISTORY: 52 years old, female; Pain; Abdominal pain TECHNIQUE: Axial computed tomography images of the abdomen and pelvis without intravenous contrast. All CT scans at this facility use one or more dose reduction techniques, viz.: automated exposure control; ma/kV adjustment per patient size (including targeted exams where dose is matched to indication; i.e. head); or iterative reconstruction technique. Coronal and sagittal reformatted images were created and reviewed. COMPARISON: CT - ABD PELVIS IV CONTRAST ONLY 2017-07-26 23:36 FINDINGS: Limitations: Lack of intravenous contrast. Lung bases: No acute findings. ABDOMEN: Liver: Unremarkable. Gallbladder and bile ducts: No calcified stones. No ductal dilation. Pancreas: Unremarkable. No ductal dilation. Spleen: No splenomegaly. Adrenals: No mass. Kidneys and ureters: No obstructing stones. No hydronephrosis. Stomach and bowel: Postsurgical changes of small bowel. Large ventral hernia containing multiple mildly dilated loops of small bowel. Mild stranding of mesentery within and subjacent to hernia. No definite mural thickening. PELVIS: Appendix: No findings to suggest acute appendicitis. Bladder: Unremarkable. No stones. Reproductive: Markedly enlarged, lobulated uterus with multiple masses and coarse calcifications. ABDOMEN and PELVIS: Intraperitoneal space: Small free fluid within abdomen. Bones/joints: Early degenerative changes of spine. No acute fracture. Soft tissues: See above. Vasculature: Unremarkable. No aneurysm. Lymph nodes: No pathologically enlarged lymph nodes. IMPRESSION: 1. Large ventral hernia containing dilated loops of small bowel with stranding of mesentery concerning for strangulation and obstruction. 2. Probable fibroid uterus. 3. Incidental/non-acute findings are described above.
[2017-09-07] MEDS ORDERED: Sodium Chloride 0.9% 1,000 ML IV STA (04:53)
[2017-09-07] MEDS ORDERED: Morphine 4 mg/ml ISec IVP PRN (04:54)
--- NOTE | 2017-09-07 05:31 | CP.PCM.CON ---
History of Present Illness - History of Present Illness History of Present Illness: General Surgery Consult Note for Dr. Davis Reason for Consult: Abdominal pain, nausea/vomiting 52F with PMH of DM, uterine fibroids, Breast CA, depression/anxiety, hx of ventral hernia repair in 2013 presents to [facility] with abdominal pain and nausea/ vomiting. Patient seen and evaluated in the ED. She states that her depression and anxiety causes her to over eat and this results in pain. Patient reiterates that she has a lot of stress from various sources which exacerabted her symptoms. Patient states that symptoms began 2 days ago when she had an episode of NBNB vomiting. Yesterday, patient developed pain in the afternoon after eating vegetables. She had 2 episodes of NBNB vomiting after pain began. Patient reports pain resolving before going to ED. She reports sudden onset and states that it has occurred numerous times in the past which were treated conservatively. She rates pain as moderate. She describes pain as constant and cramping located in periumbilical area. CT abd/pelvis was done in ED which was suggestive of incarcerated ventral hernal. Her CT scan is comparable and unchanged to other CT scans in the past. Patient is currently not in any distress and would rather not have NGT. PMH: DM, uterine fibroids, Breast CA, depression/anxiety, hx of ventral hernia repair in 2013 Meds: EMR ALL: benztropine, fluoxetine, omeprazole PSH: ventral hernia 2014, Breast surgery FH: Non-contributory Social: No ETOH/tobacco/drugs Review of Systems - Review of Systems All systems: reviewed and no additional remarkable complaints except (as per HPI ) Past Patient History - Infectious Disease Hx of Infectious Diseases: None - Tetanus Immunizations Tetanus Immunization: Unknown - Past Medical History & Family History Past Medical History?: Yes - Past Social History Smoking Status: Never Smoked - CARDIAC Hx Cardiac Disorders: Yes Hx Hypertension: Yes - PULMONARY Hx Respiratory Disorders: No - NEUROLOGICAL Hx Neurological Disorder: No - HEENT Hx HEENT Problems: No - RENAL Hx Chronic Kidney Disease: No - ENDOCRINE/METABOLIC Hx Endocrine Disorders: Yes Hx Diabetes Mellitus Type 2: Yes - HEMATOLOGICAL/ONCOLOGICAL Hx Blood Disorders: Yes Hx Cancer: Yes (Breast R) - INTEGUMENTARY Hx Dermatological Problems: No - MUSCULOSKELETAL/RHEUMATOLOGICAL Hx Musculoskeletal Disorders: No Hx Falls: No - GASTROINTESTINAL Hx Gastrointestinal Disorders: Yes Other/Comment: Claims to have"Eating Disorder" where she eats frequently to excess. History of Ventral Hernia - GENITOURINARY/GYNECOLOGICAL Hx Genitourinary Disorders: Yes Hx Sexually Transmitted Disorders: Yes (Genital Herpes) - PSYCHIATRIC Hx Psychophysiologic Disorder: Yes Hx Anxiety: Yes Hx Depression: Yes Hx Post Traumatic Stress Disorder: Yes Hx Substance Use: No - SURGICAL HISTORY Hx Breast Biopsy: Yes (right breast lumpectomy) - ANESTHESIA Hx Anesthesia: Yes Hx Anesthesia Reactions: No Meds Allergies/Adverse Reactions: Allergies Allergy/AdvReac Type Severity Reaction Status Date / Time benztropine mesylate Allergy RASH Verified 09/07/17 00:44 [From Cogentin] fluoxetine HCl [From Prozac] Allergy RASH Verified 09/07/17 00:44 omeprazole Allergy RASH Verified 09/07/17 00:44 - Medications Medications: Current Medications Sodium Chloride (Sodium Chloride 0.9%) 1,000 mls @ 100 mls/hr IV .Q10H STA Stop: 09/07/17 14:52 Morphine Sulfate (Morphine) 2 mg IVP Q4H PRN PRN Reason: Pain, moderate (4-7) Ondansetron HCl (Zofran Inj) 4 mg IVP Q6H PRN PRN Reason: Nausea/Vomiting Physical Exam - Constitutional Appears: No Acute Distress - Head Exam Head Exam: ATRAUMATIC, NORMOCEPHALIC - Eye Exam Eye Exam: EOMI, Normal appearance Pupil Exam: PERRL - ENT Exam ENT Exam: Mucous Membranes Dry - Respiratory Exam Respiratory Exam: NORMAL BREATHING PATTERN - Cardiovascular Exam Cardiovascular Exam: REGULAR RHYTHM, +S1, +S2 - GI/Abdominal Exam GI & Abdominal Exam: Distended, Hernia (large ventral/umbilical hernia), Normal Bowel Sounds, Soft. absent: Tenderness Additional comments: healed midline scar from previous ventral hernia repair - Extremities Exam Extremities exam: Positive for: normal capillary refill, pedal pulses present. Negative for: calf tenderness - Back Exam Back exam: absent: CVA tenderness (L), CVA tenderness (R) - Neurological Exam Neurological exam: Alert, CN II-XII Intact, Oriented x3 - Psychiatric Exam Psychiatric exam: Anxious - Skin Skin Exam: Dry, Intact, Normal Color, Warm Results - Vital Signs Recent Vital Signs: Last Vital Signs Temp 97.9 F 09/07/17 00:38 Pulse 73 09/07/17 03:28 Resp 17 09/07/17 03:28 BP 124/76 09/07/17 03:28 Pulse Ox 100 09/07/17 03:28 - Labs Result Diagrams: 09/07/17 01:42 09/07/17 01:42 Assessment & Plan - Assessment and Plan (Free Text) Assessment: 52 F with PMH of ventral hernia presents with abdominal pain and nausea/vomiting Plan: -NPO -IV fluids -Analgesics/Anti-emetics PRN -Monitor for Bowel function -Serial abdominal exams -Will discuss with Dr. Susan Tapia PGY1 - Date & Time Date: 09/07/17 Time: 05:00
[2017-09-07] MEDS ORDERED: Famotidine 20mg/50ml 20 MG/50 ML BAG IVPB SCH (10:00)
[2017-09-07] MEDS: Insulin Reg-LOW-Coverage SC SCH ×2 (16:24→22:00)
[2017-09-07 23:16] VITALS: RESP 20
--- NOTE | 2017-09-08 00:14 | HP ---
HISTORY OF PRESENT ILLNESS: Patient is 52 years old, known to me from office practice, came to emergency room because of increasing abdominal pain. She was vomiting. Patient threw up one time at home. So she states she has ongoing issues. She thus came to ER for further evaluation. Denies any hemoptysis. No hematemesis, no fever, no chills, no diarrhea. Patient states she is going through a lot of stress and probably that has created that issue, although she talks a lot about her mental health. Patient also states that she tried to eat healthy. She has been more vegetable lately and that might have caused that. PAST MEDICAL HISTORY: She has significant past medical history of: 1. Non-insulin dependent diabetes. 2. History of carcinoma of breast. 3. Uterine fibroid. 4. History of ventral hernia repair in 2013. 5. History of anxiety disorder. ALLERGIES: SHE IS ALLERGIC TO: 1. BENZTROPINE. 2. FLUOXETINE. 3. OMEPRAZOLE. PAST SURGICAL HISTORY: Significant for lumpectomy and ventral hernia repair. MEDICATION AT HOME: She is on Paxil 37.5 daily, Tamoxifen 20 mg daily, simvastatin 10 mg daily, metformin 500 daily, ferrous sulfate 325 daily, Abilify 30 mg daily, Xanax 0.5 daily. SOCIAL HISTORY: She lives alone. Denies smoking, drinking, or alcohol use. REVIEW OF SYSTEMS: Significant for abdominal discomfort, complained of being stressed out. PHYSICAL EXAMINATION: GENERAL: She is awake, alert, oriented, communicative. VITAL SIGNS: She is afebrile. Pulse 74, respirations 18, blood pressure 148/90. LUNGS: Bilateral fair airflow. No rhonchi or crackle. HEART: S1 and S2 audible. ABDOMEN: Slightly distended with epigastric discomfort and palpable discomfort. LABORATORY EXAMINATION: WBC 8.6, hemoglobin 9.5, hematocrit 28.2, platelets of 295. Chemistry: Sodium 141, potassium 4.1, chloride 103, CO2 28, BUN 11, creatinine 0.7, blood sugar of 112. ASSESSMENT: 1. CT scan of the abdomen and pelvis was done that shows large ventral hernia containing dilated loop of small bowel with stranding of mesentery confirming strangulation and obstruction. 2. Fibroid uterus. 3. Anxiety disorder. 4. Non-insulin dependent diabetes. 5. History of hypertension. PLAN: We will keep patient n.p.o. We will give IV fluids. Monitor her blood sugar. Monitor her electrolytes. Surgical consult has been requested and we will reevaluate the patient . Lemuel Quintana MD
[2017-09-08 07:32] VITALS: BP 136/99; PULSE 72; TEMP 98.2; O2SAT 100
--- NOTE | 2017-09-08 08:09 | CP.PCM.PN ---
Subjective - Date & Time of Evaluation Date of Evaluation: 09/08/17 Time of Evaluation: 07:00 - Subjective Subjective: PGY-1 surgery progress note for Dr. Davis Patient seen and examined. Patient reports no abdominal pain at this time. Tolerated advancement from liquids to soft yesterday. Passing flatus as well. Will advance diet further today. Objective - Vital Signs/Intake and Output Vital Signs (last 24 hours): Temp Pulse Resp BP Pulse Ox 98.2 F 72 20 136/99 H 100 09/08/17 06:00 09/08/17 06:00 09/08/17 06:00 09/08/17 06:00 09/08/17 06:00 Intake and Output: 09/08/17 09/08/17 06:59 18:59 Intake Total 480 Balance 480 - Medications Medications: Current Medications Alprazolam (Xanax) 0.25 mg PO TID [facility] PRN Reason: Protocol Stop: 09/14/17 14:01 Last Admin: 09/07/17 18:12 Dose: 0.25 mg Aripiprazole (Abilify) 15 mg PO HS [facility] PRN Reason: Protocol Last Admin: 09/07/17 21:33 Dose: 15 mg Insulin Human Regular (Humulin R Low) 0 units SC ACHS [facility] PRN Reason: Protocol Last Admin: 09/07/17 22:00 Dose: Not Given Morphine Sulfate (Morphine) 2 mg IVP Q4H PRN PRN Reason: Pain, moderate (4-7) Ondansetron HCl (Zofran Inj) 4 mg IVP Q6H PRN PRN Reason: Nausea/Vomiting Pantoprazole Sodium (Protonix Inj) 40 mg IVP DAILY [facility] Last Admin: 09/07/17 13:00 Dose: 40 mg - Labs Labs: PT 11.7 SECONDS (9.4-12.5) 09/07/17 01:42 INR 1.03 (0.93-1.08) 09/07/17 01:42 APTT 27.4 Seconds (25.1-36.5) 09/07/17 01:42 - Constitutional Appears: No Acute Distress - Head Exam Head Exam: ATRAUMATIC, NORMOCEPHALIC - Eye Exam Eye Exam: EOMI, Normal appearance - ENT Exam ENT Exam: Mucous Membranes Moist - Respiratory Exam Respiratory Exam: NORMAL BREATHING PATTERN. absent: Respiratory Distress - Cardiovascular Exam Cardiovascular Exam: +S1, +S2 - GI/Abdominal Exam GI & Abdominal Exam: Distended, Soft, Hernia (umbilical). absent: Tenderness Additional comments: Midline scar from prior hernia repair - Extremities Exam Extremities Exam: absent: Pedal Edema - Neurological Exam Neurological Exam: Alert, Awake, Oriented x3 - Psychiatric Exam Psychiatric exam: Anxious - Skin Skin Exam: Dry, Warm Assessment and Plan - Assessment and Plan (Free Text) Assessment: This is a 52 year old female with PMH of ventral hernia presents with abdominal pain and nausea/vomiting which has resolved. Plan: Umbilical Hernia Advanced to regular diet since tolerated soft diet in the evening, patient tolerated breakfast so far Monitor for bowel movements Needs to have surgery for her uterine fibroids prior to hernia repair Can be seen in the outpatient office after taking care of her fibroids Discussed with Dr. Susan Burns PGY-1
[2017-09-08] MEDS: Insulin Reg-LOW-Coverage SC SCH ×2 (08:25→12:00)
[2017-09-08] MEDS ORDERED: Midazolam 2 MG/2 ML VIAL ONE (10:33)
--- NOTE | 2017-09-09 05:00 | DS ---
HISTORY OF PRESENT ILLNESS: The patient is a 52-year-old, seen and examined, seems to be doing well. Eating and tolerating. Had regular food last night and this morning. No abdominal pain. No nausea or vomiting. PHYSICAL EXAMINATION: VITAL SIGNS: She is afebrile, pulse 72, respirations 20, blood pressure 132/99. LUNGS: Bilateral fair airflow. No rhonchi or crackle. HEART: S1, S2 audible. ABDOMEN: Soft, nontender. No rebound. No guarding. NEUROLOGICAL: Patient is awake, alert, oriented, anxious. LABORATORY EXAM: Blood sugar is 82. ASSESSMENT: 1. Status post partial small bowel obstruction. 2. History of ventral hernia. 3. History of fibroid uterus. 4. Anxiety disorder. 5. History of cancer of breast, status post lumpectomy. PLAN: The diet has been advanced. Patient has been tolerating. No abdominal pain. No nausea, vomiting noticed. Patient is advised to follow up with [facility] to have hysterectomy done prior to have ventral hernia repair. She state she will make appointment with certified paralegal. Lemuel Quintana MD
== END 2017-09-08 14:39 | disposition home or self-care (01) ==
LOC: ED 00:11 → ERH 04:52 → 5RNO 06:25
PROVIDERS: ADMIT Internal Medicine; ATTEND Internal Medicine
DX: K43.6 Other and unspecified ventral hernia with obstruction, without gangrene (principal); D25.9 Leiomyoma of uterus, unspecified; E11.9 Type 2 diabetes mellitus without complications; I10 Essential (primary) hypertension; F32.89 Other specified depressive episodes; F41.9 Anxiety disorder, unspecified; F43.10 Post-traumatic stress disorder, unspecified; Z88.8 Allergy status to other drugs, medicaments and biological substances; Z85.3 Personal history of malignant neoplasm of breast; Z87.42 Personal history of other diseases of the female genital tract
CPT/HCPCS: 74176; 80053; 81001; 82948; 83690; 83735; 85025; 85610; 85730; 99285; C9113; G0378; J7040

== ENCOUNTER 2017-10-03 22:18 | Emergency (ER) | payer MEDICARE, OTHER ==
[2017-10-03 22:34] VITALS: BMI 37.4
[2017-10-03 22:51] VITALS: TEMP 98.2
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
[2017-10-04 01:35] VITALS: BP 123/72; PULSE 88; RESP 19; O2SAT 97
== END 2017-10-04 01:41 | disposition home or self-care (01) ==
LOC: ED 22:18
DX: F31.9 Bipolar disorder, unspecified (principal)

== ENCOUNTER 2017-10-05 18:52 | Emergency (ER) | payer MEDICARE, OTHER ==
[2017-10-05 18:52] VITALS: BMI 37.4
[2017-10-05 19:30] VITALS: BP 160/92; RESP 18; TEMP 97.8
[2017-10-05 21:10] LABS: BASO # 0.01 K/mm3 (0.0-2.0); BASO % 0.2 % (0.0-3.0); EOS % 0.5 % (1.5-5.0); GRAN # 5.31 (1.4-6.5); GRAN % 84.4 % (50.0-68.0); HEMOGLOBIN 8.2 g/dL (12.0-16.0); LYMPH # 0.7 (1.2-3.4); LYMPH % 11.4 % (22.0-35.0); MEAN CELL VOLUME 77.5 fl (80.0-105.0); MEAN CORPUSCULAR HEMOGLOBIN 23.4 pg (25.0-35.0); MEAN CORPUSCULAR HGB CONC 30.1 g/dl (31.0-37.0); MEAN PLATELET VOLUME 8.2 fl (7.0-11.0); MONO # 0.2 (0.1-0.6); MONO % 3.5 % (1.0-6.0); RBC 3.51 10^6/uL (3.5-6.1); RED CELL DISTRIBUTION WIDTH 17.1 % (11.5-14.5); WHITE BLOOD COUNT 6.3 10^3/ul (4.5-11.0)
[2017-10-05 21:18] LABS: ACETAMINOPHEN < 10.0 ug/ml (10.0-20.0); SALICYLATE < 1 mg/dL (2.0-20.0)
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
[2017-10-05 21:24] LABS: ALB/GLOB RATIO 1.2 (1.1-1.8); ALBUMIN 3.9 g/dL (3.0-4.8); ALT/SGPT 30 U/L (7-56); AST/SGOT 52 U/L (14-36); BLOOD UREA NITROGEN 9 mg/dL (7-21); CALCIUM 8.6 mg/dL (8.4-10.5); GFR AFRICAN-AMERICAN > 60; GFR NON-AFRICAN AMERICAN 52
[2017-10-05 22:44] VITALS: PULSE 79
[2017-10-05 22:47] VITALS: O2SAT 99
--- NOTE | 2017-10-06 08:19 | RAD ---
HISTORY: pes COMPARISON: 12/24/2016 FINDINGS: LUNGS: No active pulmonary disease. PLEURA: No significant pleural effusion identified, no pneumothorax apparent. CARDIOVASCULAR: Normal. OSSEOUS STRUCTURES: No significant abnormalities. VISUALIZED UPPER ABDOMEN: Normal. OTHER FINDINGS: None. IMPRESSION: No active disease.
--- NOTE | 2017-10-06 12:41 | CARD ---
APPROVED REPORT EKG Measurement Heart [id number] <Conclusion> Normal sinus rhythm Moderate voltage criteria for LVH NSSTW changes No change
== END 2017-10-05 22:44 | disposition home or self-care (01) ==
LOC: ED 18:52
DX: F32.9 Major depressive disorder, single episode, unspecified (principal); I10 Essential (primary) hypertension; E11.9 Type 2 diabetes mellitus without complications
CPT/HCPCS: 71045; 80053; 83735; 85025; 90791; 93005; 99283; G0480

== ENCOUNTER 2017-12-06 21:28 | Emergency (ER) | payer MEDICARE ==
[2017-12-06 21:28] VITALS: BMI 37.4
[2017-12-06 22:02] VITALS: RESP 18; TEMP 98.6
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
[2017-12-06 23:44] LABS: BASO # 0.01 K/mm3 (0.0-2.0); BASO % 0.2 % (0.0-3.0); EOS # 0.1 (0.0-0.7); EOS % 2.5 % (1.5-5.0); GRAN # 2.43 (1.4-6.5); GRAN % 55.5 % (50.0-68.0); HEMOGLOBIN 7.8 g/dL (12.0-16.0); LYMPH # 1.6 (1.2-3.4); LYMPH % 35.4 % (22.0-35.0); MEAN CELL VOLUME 78.2 fl (80.0-105.0); MEAN CORPUSCULAR HGB CONC 29.4 g/dl (31.0-37.0); MEAN PLATELET VOLUME 8.5 fl (7.0-11.0); MONO # 0.3 (0.1-0.6); MONO % 6.4 % (1.0-6.0); RBC 3.39 10^6/uL (3.5-6.1); RED CELL DISTRIBUTION WIDTH 20.8 % (11.5-14.5); WHITE BLOOD COUNT 4.4 10^3/ul (4.5-11.0)
[2017-12-06 23:55] LABS: ALB/GLOB RATIO 1.1 (1.1-1.8); ALBUMIN 3.5 g/dL (3.0-4.8); ALT/SGPT 23 U/L (7-56); AST/SGOT 34 U/L (14-36); BLOOD UREA NITROGEN 11 mg/dL (7-21); CALCIUM 8.5 mg/dL (8.4-10.5); GFR AFRICAN-AMERICAN > 60; GFR NON-AFRICAN AMERICAN > 60
[2017-12-06 23:55] LABS: PH,URINE 7.5 (4.7-8.0); URINE BILIRUBIN NEGATIVE (NEGATIVE); URINE BLOOD NEGATIVE (NEGATIVE); URINE GLUCOSE (UA) NEGATIVE (NEGATIVE); URINE LEUKOCYTE ESTERASE NEGATIVE Leu/uL (NEGATIVE); URINE PROTEIN NEGATIVE mg/dL (<30 mg/dL)
[2017-12-06 23:59] LABS: URINE APPEARANCE CLEAR (CLEAR); URINE COLOR YELLOW (YELLOW)
[2017-12-07 00:03] LABS: B-TYPE NATRIURETIC PEPTIDE 72.2 pg/mL (0-450)
[2017-12-07 00:17] LABS: BARBITURATES, UR NEGATIVE (NEGATIVE); BENZODIAZEPINES, UR POSITIVE (NEGATIVE); OPIATES, UR NEGATIVE (NEGATIVE); PHENCYCLIDINE, UR NEGATIVE (NEGATIVE)
[2017-12-07] MEDS ORDERED: Tmp-Smz 800 mg-160 mg DS Tab PO STA (00:55)
[2017-12-07 01:17] VITALS: BP 101/89; PULSE 85; O2SAT 99
--- NOTE | 2017-12-07 09:03 | RAD ---
Date of service: 12/07/2017 PROCEDURE: CHEST RADIOGRAPH, 1 VIEW HISTORY: psych eval COMPARISON: 10/05/2017 FINDINGS: LUNGS: Clear. PLEURA: No pneumothorax or pleural fluid seen. CARDIOVASCULAR: Normal. OSSEOUS STRUCTURES: No significant abnormalities. VISUALIZED UPPER ABDOMEN: Normal. OTHER FINDINGS: None. IMPRESSION: No active disease.
--- NOTE | 2017-12-07 09:50 | RAD ---
Date of service: 12/07/2017 PROCEDURE: Radiographs of the left tibia and fibula. HISTORY: pain COMPARISON: None available. TECHNIQUE: Frontal and lateral views obtained. FINDINGS: BONES: No fracture or destructive lesion.Plantar and Achilles Tendon insertion calcaneal spurs. JOINT SPACES: Unremarkable. OTHER FINDINGS: Lower extremity, calf edema. IMPRESSION: Soft tissue swelling without acute articular or osseous abnormality.
--- NOTE | 2017-12-07 15:18 | CARD ---
APPROVED REPORT Date of service: 12/06/2017 EKG Measurement Heart [id number] <Conclusion> Normal sinus rhythm Minimal voltage criteria for LVH, may be normal variant Cannot rule out Anterior infarct, age undetermined Abnormal ECG
== END 2017-12-07 01:16 | disposition home or self-care (01) ==
LOC: ED 21:28
DX: F32.9 Major depressive disorder, single episode, unspecified (principal); M79.89 Other specified soft tissue disorders; L03.90 Cellulitis, unspecified; E11.9 Type 2 diabetes mellitus without complications; I10 Essential (primary) hypertension; Z85.3 Personal history of malignant neoplasm of breast
CPT/HCPCS: 71045; 73590; 80053; 81003; 83880; 85025; 90791; 93005; 99282; G0480

== ENCOUNTER 2018-01-20 16:07 | Inpatient (IN) | payer OTHER ==
[2018-01-20 16:47] VITALS: BMI 32.3
[2018-01-20] MEDS ORDERED: oxyCODONE 5 mg Immediate Release Tab PO PRN (17:54)
[2018-01-20] MEDS ORDERED: HYDROmorphone 1 mg/ml ISec IVP PRN (17:54)
[2018-01-20] MEDS: Insulin Reg-MEDIUM-Coverage SC SCH (21:26)
[2018-01-21] MEDS: Benzocaine/Menthol (Cepacol) Lozenge MT PRN (06:20)
[2018-01-21] MEDS: Insulin Reg-MEDIUM-Coverage SC SCH ×4 (06:45→21:20)
--- NOTE | 2018-01-21 07:33 | CP.PCM.PCO ---
Physician Communication Note - Physician Communication Note Physician Communication Note: pt was seen 01/20/18, this global technical writer signed off, pls continue meds
[2018-01-21] MEDS: Potassium & Sodium Phosphate PO SCH ×2 (09:18→17:23)
[2018-01-22] MEDS: Benzocaine/Menthol (Cepacol) Lozenge MT PRN (02:36)
[2018-01-22] MEDS: Insulin Reg-MEDIUM-Coverage SC SCH ×4 (06:37→22:15)
[2018-01-22] MEDS: Potassium & Sodium Phosphate PO SCH ×2 (09:19→17:40)
--- NOTE | 2018-01-22 22:49 | CON ---
DATE: 01/22/2018 HISTORY OF PRESENT ILLNESS: Ms. Meza is a 52-year-old female admitted to the hospital for ventral hernia repair. Her hemoglobin dropped to 7 g/dL during hospitalization on the regular floor. She has severe iron deficiency anemia likely due to menorrhagia. She has fibroid uterus and bleeds heavily in periods. She has history of breast cancer treated in the remote past. Complaining of fatigue, weakness. She has bipolar disorder. REVIEW OF SYSTEMS: As per HPI. Rest of 12-point review of systems is reviewed and negative. PAST MEDICAL HISTORY: Diabetes mellitus type 2; breast cancer on the right side, currently in remission; eating disorder; history of anxiety, depression. PAST SURGICAL HISTORY: Mastectomy, right-sided lumpectomy. MEDICATIONS: Reviewed. ALLERGIES: MULTIPLE DRUG ALLERGIES LISTED ON JUN. PHYSICAL EXAMINATION GENERAL: Comfortable in bed, in no acute distress. VITAL SIGNS: Temperature 99.8, heart rate 80 per minute, respiratory rate 18 per minute, blood pressure 130/87. HEENT: Pallor positive. NECK: No lymphadenopathy. CHEST: Air entry present and equal bilateral. No added sound. CARDIOVASCULAR: S1 and S2 normal. No murmur, no gallop. ABDOMEN: Soft and nontender. No hepatosplenomegaly. EXTREMITIES: No edema. ASSESSMENT: 1. Ventral hernia repair. 2. History of breast cancer in remission. 3. Chronic anemia related to menorrhagia, iron deficiency. PLAN: We will continue current medication. She is participating in physical therapy. Continue Pepcid 30 mg IV daily, Dilaudid 1 mg every 3 hour p.r.n. for pain and insulin, Zofran p.r.n., potassium supplements, Paxil 10 mg p.o. daily. Evaluated by Dr. Roblero, I appreciate the consult. We will order the lab, CBC and CMP for a.m. Magaly Vieira MD
[2018-01-23] MEDS: Insulin Reg-MEDIUM-Coverage SC SCH ×4 (06:56→22:00)
--- NOTE | 2018-01-23 08:28 | HP ---
HISTORY OF PRESENT ILLNESS: This is a 52-year-old female who came with severe intractable abdominal pain. She was found to have incarcerated ventral hernia. The patient had multiple episodes of partial small bowel obstruction in the past. She has multiple fibroids in her uterus, so she was advised to see chief client officer to have hysterectomy done, but she was caught in her psychological issues and never followed with chief client officer, so she came with abdominal pain. She was emergently taken for laparotomy, had ventral hernia repair, partial small bowel resection and appendectomy done. Postprocedure was uneventful and is transferred to TCU for rehab and close monitoring and physical therapy. PAST MEDICAL HISTORY: She has past medical history significant for: 1. Bipolar disorder. 2. Hypertension. 3. Jmh-bqjxkhr-tsynpuwjf diabetes. 4. Hyperlipidemia. 5. Chronic anemia. ALLERGIES: SHE IS ALLERGIC TO BENZTROPINE, FLUOXETINE, OMEPRAZOLE AND SERTRALINE. MEDICATIONS AT HOME: She is on: 1. Oxycodone. 2. BuSpar 5 mg daily. 3. Paxil 10 mg daily. 4. Pepcid. 5. Abilify. 6. Xanax. SOCIAL HISTORY: She lives by herself in assisted living. PHYSICAL EXAMINATION: GENERAL: She states she feels a lot better since surgery. VITAL SIGNS: She is afebrile, pulse 81, respirations 20, blood pressure 129/74. LUNGS: Bilateral fair airflow. No rhonchi or crackle. HEART: S1, S2 audible. ABDOMEN: Soft, nontender. No rebound, no guarding. NEUROLOGIC: She is awake, alert, oriented, communicative. LABORATORY DATA: Blood sugar is 110. ASSESSMENT AND PLAN: 1. Status post partial small bowel resection. 2. Status post ventral hernia repair. 3. Appendectomy. 4. Bgk-sgrcyjs-zgusrawjb diabetes. 5. Bipolar disorder. 6. Hypertension. 7. Hyperlipidemia. PLAN: The patient is currently on her usual medications. Give her analgesic and . Monitor blood sugar and analgesic as needed. Lemuel Quintana MD
[2018-01-23] MEDS: Potassium & Sodium Phosphate PO SCH ×2 (10:13→17:58)
--- NOTE | 2018-01-23 17:29 | PN ---
DATE: 01/23/2018 SUBJECTIVE: The patient is 52 years old, who came in with incarcerated ventral hernia, underwent partial small bowel resection, ventral hernia repair and appendectomy done. She states she is doing well. Participating in therapy. Wound looks good. Eating and tolerating. Had bowel movement. Wants to go home. She states her mails usually get lost, so she has to go home early. PHYSICAL EXAMINATION: VITAL SIGNS: She is afebrile, pulse 72, respirations 20, blood pressure 112/66. LUNGS: Bilateral fair airflow. No rhonchi or crackle. HEART: S1 and S2 audible. ABDOMEN: Soft. Nontender. No rebound. No guarding. NEUROLOGICAL: The patient is awake, alert, oriented, communicative. LABORATORY EXAM: Blood sugar is 86. ASSESSMENT: 1. Status post incarcerated ventral hernia. 2. Hypertension. 3. Hyperlipidemia. 4. Chronic anemia. 5. Noninsulin-dependent diabetes. PLAN: We will continue the patient on current medication. Her wound looks healthy. We will monitor her blood sugar, encourage ambulation. She had been placed back to her psych medications including Abilify, BuSpar. Analgesic as needed. I will follow up her electrolyte in the a.m. She is off of antibiotics. Possible discharge on . Lemuel Quintana MD
[2018-01-24] MEDS: Insulin Reg-MEDIUM-Coverage SC SCH ×3 (06:33→22:51)
[2018-01-24 07:23] LABS: BASO # 0.01 K/mm3 (0.0-2.0); BASO % 0.1 % (0.0-3.0); EOS # 0.3 (0.0-0.7); EOS % 3.4 % (1.5-5.0); GRAN # 5.3 (1.4-6.5); GRAN % 66.7 % (50.0-68.0); HEMOGLOBIN 9.8 g/dL (12.0-16.0); LYMPH # 1.9 (1.2-3.4); LYMPH % 23.9 % (22.0-35.0); MEAN CORPUSCULAR HEMOGLOBIN 25.3 pg (25.0-35.0); MEAN CORPUSCULAR HGB CONC 30.8 g/dl (31.0-37.0); MEAN PLATELET VOLUME 8.2 fl (7.0-11.0); MONO # 0.5 (0.1-0.6); MONO % 5.9 % (1.0-6.0); RBC 3.88 10^6/uL (3.5-6.1); RED CELL DISTRIBUTION WIDTH 19.2 % (11.5-14.5)
[2018-01-24 07:48] LABS: ALB/GLOB RATIO 1.1 (1.1-1.8); ALBUMIN 3.4 g/dL (3.0-4.8); ALT/SGPT 25 U/L (7-56); AST/SGOT 41 U/L (14-36); BLOOD UREA NITROGEN 12 mg/dL (7-21); CALCIUM 8.8 mg/dL (8.4-10.5); GFR NON-AFRICAN AMERICAN > 60
[2018-01-24] MEDS: Potassium & Sodium Phosphate PO SCH (17:36)
--- NOTE | 2018-01-24 23:27 | PN ---
DATE: 01/24/2018 SUBJECTIVE: The patient is 52 years old, seen and examined. Doing well. Eating and tolerating. Ambulating. PHYSICAL EXAMINATION: VITAL SIGNS: She is afebrile, pulse 80, respirations 16, blood pressure 112/76. LUNGS: Bilateral good airflow. No rhonchi or crackle. HEART: S1 and S2 audible. ABDOMEN: Soft. Nontender. No rebound. The wound seem to be healing well. No discharge. No erythema. LABORATORY EXAM: WBC is 8, hemoglobin 9.8, hematocrit 31.8, platelet of 310. Chemistry: Sodium 138, potassium 4.2, chloride 103, CO2 of 27, BUN 12, creatinine 0.7, blood sugar of 78. ASSESSMENT: 1. Status post partial small bowel obstruction secondary to ventral hernia incarceration, status post ventral hernia repair. 2. Appendectomy. 3. Bipolar disorder. 4. Chronic anemia. 5. History of fibroid uterus. PLAN: The patient is doing well, eating and tolerating, ambulating. We will continue with current medication. Continue physical therapy. Discharge plan on . Lemuel Quintana MD
[2018-01-25] MEDS: Insulin Reg-MEDIUM-Coverage SC SCH ×4 (06:31→21:24)
[2018-01-25] MEDS: Potassium & Sodium Phosphate PO SCH ×2 (09:22→17:21)
--- NOTE | 2018-01-25 10:07 | CP.PCM.PN ---
Subjective - Date & Time of Evaluation Date of Evaluation: 01/25/18 Time of Evaluation: 09:50 - Subjective Subjective: General Surgery progress note for Dr. Murphy Patient seen and examined at bedside this AM. No adverse events overnight, tolerating diet, ambulating well, having normal bowel movement, denies any pain. Objective - Vital Signs/Intake and Output Vital Signs (last 24 hours): Temp Pulse Resp BP Pulse Ox 99.2 F 88 16 112/76 98 01/24/18 16:00 01/24/18 16:00 01/24/18 16:00 01/24/18 16:00 01/24/18 16:00 - Medications Medications: Current Medications Acetaminophen (Tylenol 325mg Tab) 650 mg PO Q4H PRN; Protocol PRN Reason: Pain, Mild (1-3) Aripiprazole (Abilify) 15 mg PO HS [facility]UL; Protocol Last Admin: 01/24/18 21:36 Dose: 15 mg Buspirone HCl (Buspar) 5 mg PO DAILY [facility]; Protocol Last Admin: 01/25/18 09:21 Dose: 5 mg Famotidine (Pepcid) 20 mg PO DAILY [facility]; Protocol Last Admin: 01/25/18 09:22 Dose: 20 mg Insulin Human Regular (Humulin R Med) 0 units SC ACHS [facility]; Protocol Last Admin: 01/25/18 06:31 Dose: Not Given Ondansetron HCl (Zofran Inj) 4 mg IVP Q4H PRN; Protocol PRN Reason: Nausea/Vomiting Oxycodone HCl (Oxycodone Immediate Release Tab) 5 mg PO Q4H PRN; Protocol PRN Reason: Pain, moderate (4-7) Paroxetine HCl (Paxil) 10 mg PO DAILY [facility]; Protocol Last Admin: 01/25/18 09:22 Dose: 10 mg Potassium Phos/Sodium Phos (Neutra-Phos) 1 pkt PO BID [facility]; Protocol Last Admin: 01/25/18 09:22 Dose: 1 pkt - Labs Labs: 01/24/18 07:00 01/24/18 07:00 - Constitutional Appears: Well, Non-toxic, No Acute Distress - Head Exam Head Exam: ATRAUMATIC, NORMOCEPHALIC - Eye Exam Eye Exam: Normal appearance. absent: Conjunctival injection, Scleral icterus - ENT Exam ENT Exam: Mucous Membranes Moist, Normal Oropharynx - Respiratory Exam Respiratory Exam: NORMAL BREATHING PATTERN. absent: Accessory Muscle Use, Respiratory Distress - GI/Abdominal Exam GI & Abdominal Exam: Soft. absent: Distended, Tenderness Additional comments: midline incision well approximated with maria elena, no drainage, erythema, or bleeding - Neurological Exam Neurological Exam: Alert, Awake, Oriented x3 - Psychiatric Exam Psychiatric exam: Normal Affect, Normal Mood - Skin Skin Exam: Dry, Normal Color, Warm Assessment and Plan - Assessment and Plan (Free Text) Assessment: 52F POD#9 s/p ventral hernia repair with small bowel resection Plan: Continue current management per primary team Will remove maria elena prior to D/C No further surgical intervention--follow up with Dr. Murphy in his office as an outpatient Discussed with Dr. Jeffrey Johnson, PGY2
[2018-01-25 16:18] VITALS: BP 114/73; PULSE 82; RESP 18; TEMP 99; O2SAT 99
--- NOTE | 2018-01-25 22:18 | DS ---
HISTORY OF PRESENT ILLNESS: The patient is 52 years old, who was admitted on 01/16/2018 with severe abdominal pain. She was found to have incarcerated ventral hernia. She was taken emergently to OR and had ventral hernia repair, also underwent appendectomy and partial small bowel resection. The patient did well postop. She was transferred to TCU for rehab and close monitoring. She is doing well. Demanding to go home today. She does not want to stay until Tuesday. PHYSICAL EXAMINATION: GENERAL: She is awake, alert, oriented, communicative. VITAL SIGNS: She is afebrile, pulse 82, respirations 18, blood pressure 114/73. LUNGS: Bilateral good airflow. No rhonchi or crackle. HEART: S1 and S2 audible. ABDOMEN: Soft, obese. Her surgical site looks healthy. No discharge. No erythema. Runnells are still in. EXTREMITIES: Bilateral legs, +2 edema. ASSESSMENT: 1. Status post incarcerated ventral hernia. 2. Status post partial small bowel resection. 3. Hypertension. 4. Chronic anemia. PLAN: The patient will be discharged home today. She will follow up with Dr. Murphy as outpatient. She will resume her medications including Abilify, BuSpar and she is on Paxil. We will continue that. She will continue her usual regular medications. She will follow up with Dr. Murphy as outpatient. Follow up with me in 2 weeks. Also, advised to follow up with power and recovery superintendent for elective hysterectomy. Lemuel Quintana MD
[2018-01-26] MEDS: Insulin Reg-MEDIUM-Coverage SC SCH ×2 (06:43→11:14)
--- NOTE | 2018-01-26 09:00 | CP.PCM.PN ---
Subjective - Date & Time of Evaluation Date of Evaluation: 01/26/18 Time of Evaluation: 08:57 - Subjective Subjective: General Surgery Dr. Murphy Pt S&E @bedside. No acute events overnight. Pt has no complaints. Pt denies abd pain, F/C, N/V. tolerating diet. (+)BM/Flatus. Objective - Vital Signs/Intake and Output Vital Signs (last 24 hours): Temp Pulse Resp BP Pulse Ox 99 F 82 18 114/73 99 01/25/18 16:00 01/25/18 16:00 01/25/18 16:00 01/25/18 16:00 01/25/18 16:00 - Medications Medications: Current Medications Acetaminophen (Tylenol 325mg Tab) 650 mg PO Q4H PRN; Protocol PRN Reason: Pain, Mild (1-3) Aripiprazole (Abilify) 15 mg PO HS [facility]; Protocol Last Admin: 01/25/18 21:21 Dose: 15 mg Buspirone HCl (Buspar) 5 mg PO DAILY [facility]; Protocol Last Admin: 01/25/18 09:21 Dose: 5 mg Famotidine (Pepcid) 20 mg PO DAILY [facility]; Protocol Last Admin: 01/25/18 09:22 Dose: 20 mg Insulin Human Regular (Humulin R Med) 0 units SC [facility]; Protocol Last Admin: 01/26/18 06:43 Dose: Not Given Ondansetron HCl (Zofran Inj) 4 mg IVP Q4H PRN; Protocol PRN Reason: Nausea/Vomiting Oxycodone HCl (Oxycodone Immediate Release Tab) 5 mg PO Q4H PRN; Protocol PRN Reason: Pain, moderate (4-7) Paroxetine HCl (Paxil) 10 mg PO DAILY VIPUL; Protocol Last Admin: 01/25/18 09:22 Dose: 10 mg - Labs Labs: 01/24/18 07:00 01/24/18 07:00 - Constitutional Appears: Non-toxic, No Acute Distress - Head Exam Head Exam: NORMAL INSPECTION - Eye Exam Eye Exam: Normal appearance - ENT Exam ENT Exam: Mucous Membranes Moist - Respiratory Exam Respiratory Exam: NORMAL BREATHING PATTERN. absent: Accessory Muscle Use, Respiratory Distress - Cardiovascular Exam Cardiovascular Exam: REGULAR RHYTHM. absent: Bradycardia, Tachycardia - GI/Abdominal Exam GI & Abdominal Exam: Soft. absent: Distended, Firm, Guarding, Rigid, Tenderness, Rebound Additional comments: skin well approximated - Extremities Exam Extremities Exam: Normal Inspection - Neurological Exam Neurological Exam: Alert, Awake, Oriented x3 - Psychiatric Exam Psychiatric exam: Normal Affect, Normal Mood - Skin Skin Exam: Dry, Intact, Normal Color, Warm Assessment and Plan - Assessment and Plan (Free Text) Assessment: 52 y/o F POD#10 s/p ex-lap, small bowel resection, and ventral hernia repair 2/2 strangulated ventral hernia - maria elena removed - f/u w/ Dr. Murphy in 7-10days - no heavy lifting for 6weeks - pt may shower - cont PT/OT - pt cleared for discharge from surgical standpoint Pt discussed w/ Dr. Jeffrey Joseph DO PGY3
--- NOTE | 2018-01-27 04:34 | DS ---
SUBJECTIVE: Patient is a 52-year-old, seen and examined, unable to discharge last night since she had no ride. PHYSICAL EXAMINATION: VITAL SIGNS: She is afebrile, pulse 82, respiration 18, blood pressure 114/73. LUNGS: Bilateral good airflow. No rhonchi or crackles. HEART: S1, S2 audible. ABDOMEN: Soft, nontender. No rebound, no guarding. NEUROLOGIC: She is awake, alert, oriented. Able to communicate. ASSESSMENT: 1. Status post repair of incarcerated ventral hernia. 2. Status post appendectomy. 3. Status post partial small bowel resection. 4. Hypertension. 5. Chronic anemia. 6. Bipolar disorder. PLAN: Patient will be discharged today. She will follow up with Dr. Murphy as outpatient. She will follow up with me in 2 weeks. She has been advised to have hysterectomy done once she recovers after the next 4-6 . Lemuel Quintana MD
== END 2018-01-26 16:26 | disposition home or self-care (01) | DRG 395 ==
LOC: TRCU 16:07
PROVIDERS: ADMIT Internal Medicine; ATTEND Internal Medicine
PROC: F07Z9FZ Gait Training/Functional Ambulation Treatment using Assistive, Adaptive, Supportive or Protective Equipment (ICD-10-PCS; principal; 2018-01-20)
PROC: F07M6ZZ Therapeutic Exercise Treatment of Musculoskeletal System - Whole Body (ICD-10-PCS; 2018-01-20)
PROC: F08Z1ZZ Dressing Techniques Treatment (ICD-10-PCS; 2018-01-20)
PROC: F08Z2ZZ Grooming/Personal Hygiene Treatment (ICD-10-PCS; 2018-01-20)
DX: K43.6 Other and unspecified ventral hernia with obstruction, without gangrene (principal); I10 Essential (primary) hypertension; D50.0 Iron deficiency anemia secondary to blood loss (chronic); N92.0 Excessive and frequent menstruation with regular cycle; F31.9 Bipolar disorder, unspecified; D25.9 Leiomyoma of uterus, unspecified; E11.9 Type 2 diabetes mellitus without complications; E78.5 Hyperlipidemia, unspecified; Z79.899 Other long term (current) drug therapy; Z85.3 Personal history of malignant neoplasm of breast; Z86.59 Personal history of other mental and behavioral disorders; Z90.49 Acquired absence of other specified parts of digestive tract; Z90.10 Acquired absence of unspecified breast and nipple

== ENCOUNTER 2018-01-29 02:25 | Observation (INO) | payer MEDICARE, OTHER ==
[2018-01-29 02:45] VITALS: BMI 35.1
--- NOTE | 2018-01-29 02:49 | ED PDOC ---
Arrival/HPI - General Time Seen by Provider: 01/29/18 02:44 Historian: Patient - History of Present Illness Narrative History of Present Illness (Text): 01/29/18 02:40 52 year old female, whose past medical history includes ventral hernia, diabetes, hypertension, right-sided breast cancer s/p lumpectomy, bipolar disorder anxiety, and depression, presents to the emergency department complaining weakness and numbness to the left arm the began yesterday morning approximately around 6-9am. Patient states she was recently discharged from the hospital after a hernia repair. Patient denies any fever, chills, chest pain, shortness of breath, abdominal pain, nausea, vomiting, diarrhea, back pain, neck pain, headache, dizziness, or any other complaints. PMD: Dr. Quintana Time/Duration: Other (yesterday morning ) Symptom Onset: Sudden Symptom Course: Unchanged Activities at Onset: Light Context: Home Past Medical History - Provider Review Nursing Documentation Reviewed: Yes - Past History Past History: No Previous - Infectious Disease Hx of Infectious Diseases: None - Tetanus Immunization Tetanus Immunization: Unknown - Cardiac Hx Cardiac Disorders: Yes Hx Hypertension: Yes - Pulmonary Hx Respiratory Disorders: No - Neurological Hx Neurological Disorder: No - HEENT Hx HEENT Disorder: No - Renal Hx Renal Disorder: No - Endocrine/Metabolic Hx Diabetes Mellitus Type 2: Yes - Hematological/Oncological Hx Blood Disorders: Yes Hx Cancer: Yes (Breast R) - Integumentary Hx Dermatological Disorder: No - Musculoskeletal/Rheumatological Hx Musculoskeletal Disorders: No Hx Falls: No - Gastrointestinal Hx Gastrointestinal Disorders: Yes Other/Comment: Claims to have"Eating Disorder" where she eats frequently to excess. History of Ventral Hernia - Genitourinary/Gynecological Hx Genitourinary Disorders: No - Psychiatric Hx Psychophysiologic Disorder: Yes Hx Anxiety: Yes Hx Depression: Yes Hx Emotional Abuse: Yes Hx Post Traumatic Stress Disorder: Yes Hx Substance Use: No - Past Surgical History Past Surgical History: Unable to Obtain - Surgical History Hx Breast Biopsy: Yes (right breast lumpectomy) - Anesthesia Hx Anesthesia: Yes Hx Anesthesia Reactions: No - Suicidal Assessment Feels Threatened In Home Enviroment: No Family/Social History - Physician Review Nursing Documentation Reviewed: Yes Family/Social History: No Known Family HX Smoking Status: Never Smoked Hx Alcohol Use: No Hx Substance Use: No Hx Substance Use Treatment: No Allergies/Home Meds Allergies/Adverse Reactions: Allergies benztropine mesylate [From Cogentin] Allergy (Verified 01/29/18 02:48) RASH fluoxetine HCl [From Prozac] Allergy (Verified 01/29/18 02:48) RASH omeprazole Allergy (Verified 01/29/18 02:48) RASH sertraline [From Zoloft] Allergy (Verified 01/29/18 02:48) RASH Home Medications: Home Meds Medication Instructions Recorded Confirmed PARoxetine [Paxil] 10 mg PO DAILY 09/08/17 01/29/18 busPIRone [Buspar] 5 mg PO DAILY 09/08/17 01/29/18 Review of Systems - Physician Review All systems were reviewed & negative as marked: Yes - Review of Systems Constitutional: absent: Fevers, Other (Chills) Respiratory: absent: SOB Cardiovascular: absent: Chest Pain Gastrointestinal: absent: Abdominal Pain, Diarrhea, Nausea, Vomiting Musculoskeletal: absent: Back Pain, Neck Pain Neurological: Other (weakness and numbness to the left arm ). absent: Headache, Dizziness Physical Exam - Physical Exam Narrative Physical Exam (Text): Gen: VS reviewed, alert, well developed, well nourished, nontoxic, mild distress. ENT: normal pharynx. Eye: EOMI, PERRL. Neck: no JVD, supple, no adenopathy. CV: regular rate, regular rhythm, no rubs, no murmur, no gallops, S1, S2, pulses equal and strong. Pulm: no distress, clear to auscultation, no wheeze, no rhonchi, breath sounds equal, no rales. Abd: soft, nontender, no guarding, no rebound, no rigidity, normal bowel sounds. Ext: 0/5 strength left arm. Diminished sensation left face, arm, and leg. no edema. Skin: good color, no rash, no cyanosis. Psych: responds appropriately to questions, Bizarre affect. Neuro: oriented x 3, CN2-12 intact grossly Vital Signs Reviewed: Yes Vital Signs Temp Pulse Resp BP Pulse Ox 01/29/18 02:38 98.3 F 81 18 127/62 100 Temperature: Afebrile Blood Pressure: Normal Pulse: Regular Respiratory Rate: Normal Medical Decision Making ED Course and Treatment: 01/29/18 02:43 Impression: 52 year old female presents complaining of weakness and numbness to the left arm. PE shows 0/5 strength left arm and diminished sensation to the left face, arm, and leg. Plan: -- CT Head w/o contrast -- Labs -- EKG -- Fingerstick -- Reassess and disposition Prior Visits: Notes and results from previous visits were reviewed. Progress Notes: 01/29/18 02:44 Code stroke called. 01/29/18 03:[address] Dotson who recommends CTA of the head and neck and aspirin for now. 01/29/18 04:[address] Quintana who is aware and agrees with the plan. Accept patient into her service. 01/29/18 04:53 patient to be admitted for acute cva, patient with an extreme delay in presentation and not a candidate for tpa. patient complained of left arm and leg swelling to Dr. Quintana prior to arrival. At the request of Dr. Quintana i have ordered routine left upper and lower ext Us duplex studies to eval for DVT. - Lab Interpretations I have reviewed the lab results: Yes - RAD Interpretation Narrative RAD Interpretations (Text): EXAM: CT Head w/o IV Contrast Signed: 01/29/18 3:05 By: Jose Armando Lynn M.D. IMPRESSION: Minimal chronic biparietal subcortical microvascular disease. No acute intracranial abnormality. Psychiatrist: Radiologist - EKG Interpretation EKG Interpretation (Text): 01/29/18 05:01 0426: nsr at 70 bpm, nml qrs, nml axis, nonspecific t wave abn Interpreted by ED Physician: Yes Type: 12 lead EKG NIHSS Scale ([place]) Time Performed: 05:48 (baseline at time of initial eval) - How Severe is the Stoke Baseline Level of Consciousness: 0=Alert LOC to Questions: 0=Both comments correct LOC to commands: 0=Obeys both correctly Best Gaze: 0=Normal Visual: 0=No visual loss Facial: 1=Minor asymmetry Motor Arm - Left: 4=No movement Motor Arm - Right: 0=No drift Motor Leg - Left: 0=No drift Motor Leg - Right: 0=No drift Limb Ataxia: 0=Absent Sensory: 1=Mild to moderate loss Best Language: 0=No aphasia Dysarthia: 0=Normal articulation Extinction & Inattention (Neglect): 0=Normal, no object Score: 6 Risk Level: Mod Stroke Risk - Scribe Statement The provider has reviewed the documentation as recorded by the Brett Lawler Provider Pepeibe Attestation: All medical record entries made by the Brett were at my direction and personally dictated by me. I have reviewed the chart and agree that the record accurately reflects my personal performance of the history, physical exam, medical decision making, and the department course for this patient. I have also personally directed, reviewed, and agree with the discharge instructions and disposition. Disposition/Present on Arrival - Present on Arrival Any Indicators Present on Arrival: No History of DVT/PE: No History of Uncontrolled Diabetes: Yes Urinary Catheter: No History Surgical Site Infection Following: None - Disposition Have Diagnosis and Disposition been Completed?: Yes Diagnosis: Cerebrovascular accident (CVA) Disposition: HOSPITALIZED Disposition Time: 04:55 Patient Plan: Admission Patient Problems: Current Active Problems Problem Status Onset Cerebrovascular accident (CVA) Acute Condition: FAIR
[2018-01-29 03:30] LABS: BASO # 0.02 K/mm3 (0.0-2.0); BASO % 0.5 % (0.0-3.0); EOS # 0.3 (0.0-0.7); EOS % 7.2 % (1.5-5.0); GRAN # 2.37 (1.4-6.5); GRAN % 58.5 % (50.0-68.0); HEMOGLOBIN 9.5 g/dL (12.0-16.0); LYMPH # 1.2 (1.2-3.4); LYMPH % 28.4 % (22.0-35.0); MEAN CELL VOLUME 82.5 fl (80.0-105.0); MEAN CORPUSCULAR HEMOGLOBIN 24.8 pg (25.0-35.0); MEAN CORPUSCULAR HGB CONC 30.1 g/dl (31.0-37.0); MONO # 0.2 (0.1-0.6); MONO % 5.4 % (1.0-6.0); RBC 3.83 10^6/uL (3.5-6.1); RED CELL DISTRIBUTION WIDTH 18.6 % (11.5-14.5); WHITE BLOOD COUNT 4.1 10^3/ul (4.5-11.0)
[2018-01-29 03:36] LABS: INR 1.07; PARTIAL THROMBOPLASTIN TIME 29.6 Seconds (25.1-36.5); PROTHROMBIN TIME 12.3 SECONDS (9.4-12.5)
[2018-01-29 03:44] LABS: ALB/GLOB RATIO 1.1 (1.1-1.8); ALBUMIN 3.6 g/dL (3.0-4.8); ALT/SGPT 29 U/L (7-56); AST/SGOT 49 U/L (14-36); BLOOD UREA NITROGEN 12 mg/dL (7-21); CALCIUM 8.5 mg/dL (8.4-10.5); GFR NON-AFRICAN AMERICAN > 60
[2018-01-29] MEDS ORDERED: Iohexol 350 MG/100 ML VIAL ONE (04:04)
--- NOTE | 2018-01-29 09:33 | CARD ---
APPROVED REPORT Date of service: 01/29/2018 EKG Measurement Heart [id number] <Conclusion> Normal sinus rhythm Minimal voltage criteria for LVH, may be normal variant Nonspecific T wave abnormality The QTC is now normal
--- NOTE | 2018-01-29 10:02 | CT ---
Date of service: 01/29/2018 PROCEDURE: CT HEAD WITHOUT CONTRAST. HISTORY: Left arm numbness. COMPARISON: None available. TECHNIQUE: Axial computed tomography images were obtained through the head/brain without intravenous contrast. Supplemental Coronal and Sagittal projections created and reviewed. Code stroke protocol employed. Radiation dose: Total exam DLP = 947.46 mGy-cm. This CT exam was performed using one or more of the following dose reduction techniques: Automated exposure control, adjustment of the mA and/or kV according to patient size, and/or use of iterative reconstruction technique. FINDINGS: HEMORRHAGE: No intracranial hemorrhage. BRAIN: No mass effect or edema. No atrophy or chronic microvascular ischemic changes. VENTRICLES: Unremarkable. No hydrocephalus. CALVARIUM: Unremarkable. PARANASAL SINUSES: Unremarkable as visualized. No significant inflammatory changes. MASTOID AIR CELLS: Unremarkable as visualized. No inflammatory changes. OTHER FINDINGS: None. IMPRESSION: No acute intracranial abnormalities. No significant findings to account for the clinical presentation. Code stroke protocol: Study completed 02:57. Preliminary report provided 03:05. Interpretation finalized and available for review 09:59. January 29, 2018.
[2018-01-29] MEDS ORDERED: oxyCODONE 5 mg Immediate Release Tab PO PRN (14:32)
--- NOTE | 2018-01-29 15:52 | US ---
PROCEDURE: Left lower extremity venous US HISTORY: Leg pain and swelling. Evaluate for DVT. PHYSICIAN(S): Praful Rubin MD. TECHNIQUE: Duplex sonography and color-flow Doppler with graded compression were used to evaluate the deep venous system of the left lower extremity. FINDINGS: The visualized deep venous system of the left lower extremity is sonographically normal and compressible. Normal wave forms and augmentation are seen. There is no sonographic evidence for deep venous thrombosis in the visualized segments of the left lower extremity. IMPRESSION: 1. No sonographic evidence for deep venous thrombosis in the visualized segments of the left lower extremity.
--- NOTE | 2018-01-29 15:55 | US ---
PROCEDURE: Left upper extremity venous ultrasound HISTORY: Arm pain and swelling. Evaluate for deep venous thrombosis. PHYSICIAN(S): Praful Rubin MD. FINDINGS: The visualized leftinternal jugular vein is sonographically normal and compressible. No evidence of obstruction or thrombus is seen. The visualized segments of the left subclavian vein are patent with normal waveforms. No sonographic evidence of obstruction or thrombosis is seen. The visualized deep venous system of the proximal leftupper extremity is sonographically normal and compressible. IMPRESSION: 1. No sonographic evidence for deep venous thrombosis in the visualized segments of the left upper extremity.
[2018-01-29 18:19] VITALS: RESP 18
[2018-01-29] MEDS: Insulin Lispro (humaLOG) MEDIUM Coverage SC SCH ×2 (18:55→22:29)
--- NOTE | 2018-01-30 01:31 | HP ---
HISTORY OF PRESENT ILLNESS: The patient is a 52-year-old, who was recently admitted with incarcerated ventral hernia. Patient was discharged two days ago. Patient states she did well for the day, yesterday she noticed, she has heaviness in her left upper arm. She was having difficulty raising her left arm and noticed some swelling so she called me in the middle of night, I advised her to come to emergency room for further evaluation. Denies any trauma. Denies any falls. Denies any headaches. No chest pain. No shortness of breath. No fever. No chills. PAST MEDICAL HISTORY: She has past medical history of; 1. Bipolar disorder. 2. She has couple of admission for partial small bowel obstruction. 3. Ventral hernia that finally got incarcerated and she was recently operated for that, ended up having appendectomy, ventral hernia repair and partial small bowel resection. 4. Hypertension. 5. Non-insulin dependent diabetes. 6. Fibroid uterus. ALLERGIES: SHE IS ALLERGIC TO BENZTROPINE, FLUOXETINE, OMEPRAZOLE AND SERTRALINE. MEDICATIONS: At home, she is on Percocet as needed, she is on BuSpar, she is on Paxil, famotidine, Abilify. SOCIAL HISTORY: She lives by herself in assisted living. Denies smoking, drinking. No alcohol use. PHYSICAL EXAMINATION: GENERAL: She is awake and alert, able to communicate. Face is symmetrical. She has difficulty raising her left arm, however, her lower extremity bilateral motor strength is intact. Her both radial pulses are appreciated. VITAL SIGNS: She is afebrile, pulse 85, respirations 20, blood pressure 129/87. LUNGS: Bilateral good airflow. No rhonchi or crackle. HEART: S1 and S2 audible. ABDOMEN: Soft, obese, nontender. No rebound. No guarding. NEUROLOGICAL: She is awake and alert, communicative. Only has left upper extremity weakness and limited motion of shoulder. LABORATORY EXAM: WBC 4.1, hemoglobin 9.5, hematocrit 31.6, platelet 356. PT 12.3. INR 1.07. Chemistry: Sodium 141, potassium 3.9, chloride 106, CO2 of 28, BUN 12, creatinine 0.8. Blood sugar of 73. DIAGNOSTIC DATA: She has bilateral upper extremity Doppler done that is unremarkable. CT scan of the head is unremarkable. ASSESSMENT: 1. Isolated left upper extremity weakness. 2. Non-insulin dependent diabetes. 3. Hypertension. 4. Bipolar disorder. PLAN: Neurology evaluation has been called. We will get cervical spine MRI. We will start her on aspirin and we will discuss with neurologist. Lemuel Quintana MD
[2018-01-30 05:53] VITALS: O2SAT 97
[2018-01-30] MEDS: Insulin Lispro (humaLOG) MEDIUM Coverage SC SCH ×2 (08:39→12:22)
--- NOTE | 2018-01-30 09:32 | CON ---
DATE: 01/30/2018 NEUROLOGY CONSULTATION CHIEF COMPLAINT: Left arm numbness and heaviness as well as difficulty to extend the left wrist. HISTORY OF PRESENT ILLNESS: This is a 52-year-old woman with past medical history of bipolar disorder who has had a couple of admission, hypertension, [id number] diabetes mellitus, fibroid uterus, history of ventral hernia that finally got incarcerated and was recently operated and apparent appendectomy, ventral hernia repair, partial small bowel obstruction, came after having a blood transfusion and was noted to have heaviness of left upper arm. She felt tingling and numbness going down her left arm associated with spiral groove as well as difficulty to extend her left wrist. She definitely has a left wrist drop which is peripheral impingement likely the spiral groove injuring the radial nerve. MRI of the cervical spine is currently pending. PAST MEDICAL HISTORY: As above. SOCIAL HISTORY: No illicit drug use, smoking or EtOH abuse. ALLERGIES: ALLERGIC TO BENZTROPINE, FLUOXETINE, OMEPRAZOLE AND SERTRALINE. MEDICATIONS: Reviewed by nurse per reconciliation sheet. REVIEW OF SYSTEMS: A 14-point review of systems is negative except per the HPI. LABORATORY DATA: Today's blood sugar is 82. PHYSICAL EXAMINATION: VITAL SIGNS: Temperature 98.1, pulse rate of 84, blood pressure 110/72, respiratory rate is 18, oxygen saturation 97% by room air. GENERAL: The patient is sitting up in bed, in no acute distress. HEENT: Head is atraumatic, normocephalic. PERRLA. Extraocular muscles intact. NECK: Supple. No JVD, no adenopathy noted. LUNGS: Clear to auscultation. No adventitious sounds. HEART: S1 and S2. Normal rate and rhythm. No murmurs, rubs or gallops. ABDOMEN: Soft, nontender and nondistended. Bowel sounds are present. EXTREMITIES: No clubbing. No cyanosis. Peripheral pulses are 2+ felt bilaterally. NEUROLOGIC: The patient is alert and oriented to person, place, month and year. Flat affect. Cranial nerves II through XII intact. Speech is fluent without any errors. Recall after 5 minutes is 2/3. Motor exam: Moves all extremities equally. No pronator drift seen. Has left wrist drop. DTRs are 2+ throughout. Coordination: [id number] intact. Sensory exam: Decreased light touch and pinprick up to the calves bilaterally. Decreased vibration of the toes. No dysmetria noted. Gait is deferred for now. IMPRESSION AND PLAN: This is a 52-year-old woman with past medical history of type 2 diabetes mellitus, hypertension, fibroid uterus with a recent ventral hernia repair that got incarcerated, operated and apparent appendectomy and ventral hernia repair as well as partial small bowel obstruction, found to have left arm heaviness and tingling sensation associated around the left forearm and has difficulty to extend the left wrist. She has a left wrist drop likely from peripheral impingement, likely the spiral groove. At this time, we will recommend: 1. Physical therapy and wrist splint and we will need outpatient physical and occupational therapy. 2. MRI of the cervical spine to see if there cervical cord unlikely though and continue with current present medical management and keep blood sugars between 140 and 180. Thank you for this consult. Kalpesh Deshpande MD
--- NOTE | 2018-01-30 09:48 | CT ---
Date of service: 01/29/2018 PROCEDURE: CT Angiography of the neck with contrast HISTORY: CVA COMPARISON: None. TECHNIQUE: Contiguous axial images of the neck were obtained from the level of the skull-base to the superior mediastinum in the arteriographic phase of enhancement. Coronal and sagittal reformats or also generated. IV contrast dose: 100 cc of Omni 350 Radiation Dose - DLP: 545 mGy-cm This CT exam was performed using one or more of the following dose reduction techniques: Automated exposure control, adjustment of the mA and/or kV according to patient size, and/or use of iterative reconstruction technique. FINDINGS: RIGHT CAROTID ARTERIES: Common Carotid Artery: Normal. Carotid Bifurcation: Normal. Internal Carotid Artery:Normal. External Carotid Artery (proximal branches): Normal. LEFT CAROTID ARTERIES: Common Carotid Artery: Normal. Carotid Bifurcation: Normal. Internal Carotid Artery:Normal. External Carotid Artery (proximal branches): Normal. VERTEBRAL ARTERIES: Right Vertebral Artery: Normal. Left Vertebral Artery: Normal. OTHER FINDINGS: None. IMPRESSION: Normal CT Angiography of the neck. CT Angiography of the Brain. HISTORY: CVA COMPARISON: None available. TECHNIQUE: CT angiography of the intracranial arteries was performed. Coronal and sagittal maximum intensity projection reformated images were generated. This CT exam was performed using one or more of the following dose reduction techniques: Automated exposure control, adjustment of the mA and/or kV according to patient size, and/or use of iterative reconstruction technique. FINDINGS: INTERNAL CEREBRAL ARTERIES: Unremarkable. The skull base, petrous, cavernous and supraclinoid segments are bilaterally widely patent. ANTERIOR CEREBRAL ARTERIES: Unremarkable. A1 and A2 segments are widely patent. Smaller distal branches unremarkable, as visualized. MIDDLE CEREBRAL ARTERIES: Unremarkable. M1 and M2 segments are widely patent. Perisylvian branches grossly symmetric. POSTERIOR CIRCULATION: Basilar Artery: Unremarkable. Distal Vertebral Arteries: Unremarkable. Posterior Cerebral Arteries: Unremarkable. Posterior Inferior Cerebellar Arteries: Unremarkable. ANEURYSM/ VASCULAR MALFORMATIONS: None. OTHER FINDINGS: The report concurs with the preliminary report IMPRESSION: Unremarkable CT Angiography of the Brain.
[2018-01-30 12:08] VITALS: BP 122/74; PULSE 70; TEMP 99.2
--- NOTE | 2018-01-31 09:55 | DS ---
HISTORY OF PRESENT ILLNESS: The patient is 52 years old, who came in with difficulty holding thing in her left hand. She states she noticed this weakness after she was discharged home from previous admission. Patient recently had ventral hernia repair and appendectomy done, had CT scan done that is unremarkable, doubt stroke, seems to be local pathology. PHYSICAL EXAMINATION: GENERAL: Today, she is awake, alert, oriented, communicative. VITAL SIGNS: She is afebrile, pulse 70, respirations 18, blood pressure 122/74. LUNGS: Bilateral good airflow. No rhonchi or crackle. HEART: S1, S2 audible. ABDOMEN: Soft, nontender. No rebound. No guarding. NEUROLOGICAL: Patient is awake, alert, oriented, communicative. She has the left wrist drop. Her left arm, shoulder and elbow has intact movement. LABORATORY EXAM: She has upper extremity ultrasound, arterial and Doppler done that is unremarkable. CT angio of the brain is unremarkable. ASSESSMENT AND PLAN: Left wrist drop. Patient was seen by neurologist, recommended for wrist splint and physical therapy that patient will receive as outpatient so she can be discharged after she had MRI of the C-spine done. She will follow up with Dr. Lanier for physical therapy of her left wrist and she will continue all her medication as prior to admission including Abilify, BuSpar, oxycodone, Paxil, famotidine and Xanax as . Lemuel Quintana MD
== END 2018-01-30 15:03 | disposition home or self-care (01) ==
LOC: ED 02:25 → ERH 04:50 → INTOOBSV 04:50 → ERH 05:07 → 2RSO 06:36
PROVIDERS: ADMIT Internal Medicine; ATTEND Internal Medicine
DX: M21.332 Wrist drop, left wrist (principal); R53.1 Weakness; E11.9 Type 2 diabetes mellitus without complications; F31.9 Bipolar disorder, unspecified; F43.10 Post-traumatic stress disorder, unspecified; I10 Essential (primary) hypertension; D25.9 Leiomyoma of uterus, unspecified; Z85.3 Personal history of malignant neoplasm of breast; Z88.8 Allergy status to other drugs, medicaments and biological substances; Z90.49 Acquired absence of other specified parts of digestive tract
CPT/HCPCS: 70450; 70496; 70498; 80053; 82948; 85025; 85610; 85730; 86850; 86900; 93005; 93971; 97110; 97162; 97760; 99285; G0378; G8978; G8979; G8980; Q9967

== ENCOUNTER 2018-05-23 21:27 | Emergency (ER) | payer MEDICARE ==
[2018-05-23 21:27] VITALS: BMI 35.1
[2018-05-23 21:47] VITALS: RESP 18; TEMP 98.1; O2SAT 100
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
[2018-05-23 23:41] VITALS: BP 135/74; PULSE 81
== END 2018-05-23 22:44 | disposition home or self-care (01) ==
LOC: ED 21:27
DX: R51 Headache (principal)